=== PATIENT | male | born 1965 | race Caucasian/White ===

== ENCOUNTER 2017-07-28 00:45 | Inpatient (IN) | payer MEDICARE ==
[2017-07-28 01:14] LABS: #Lymphocytes 0.8 thou/uL (1.20-3.40); #Monocytes 0.3 thou/uL (0.11-0.59); %Basophils 0.1 % (0.0-1.0); %Eosinophils 0.5 % (0.0-10.0); %Lymphocytes 8.9 % (21.0-51.0); %Monocytes 3.4 % (0.0-10.0); %Neutrophils 87.1 % (42.0-75.0); Hemoglobin 12.3 g/dL (14.0-18.0); Mean Corpuscular HGB CONC 32.8 g/dL (32.0-36.0); Mean Corpuscular Hemoglobin 30.4 pg (27.0-31.0); Mean Corpuscular Volume 92.6 fl (80.0-94.0); Mean Platelet Volume 7.1 fL (7.4-10.4); Platelet Count 274 thou/uL (130-400); RBC Distribution Width 15.5 % (11.5-14.5); Red Blood Cell (RBC) Count 4.05 mill/uL (4.70-6.10); White Blood Cell (WBC) Count 9.2 thou/uL (4.8-10.8)
[2017-07-28] MEDS ORDERED: methylPREDNISolone Sod Succ/PF 125 MG/2 ML VIAL ONE (01:14)
[2017-07-28] MEDS ORDERED: Acetaminophen 500 MG TAB ONE (01:14)
[2017-07-28] MEDS ORDERED: cefTRIAXone\\ROCEPHIN 2 GM in Sodium Chloride 0.9% 100 ML IVPB SCH (01:15)
[2017-07-28 01:36] LABS: ALT (SGPT) 40 U/L (8-55); AST (SGOT) 34 U/L (5-34); Albumin 3.5 g/dL (3.5-5.0); Alkaline Phosphatase 82 U/L (40-150); Anion Gap 14 mmol/L (10-20); BUN (Urea Nitrogen) 8 mg/dL (8.4-25.7); Bilirubin, Total Less than 0.2 mg/dL (0.2-1.2); CK (CPK) 107 U/L (30-200); Calc. Creatinine Clearance 0 mL/min (70-130); Calcium 9.1 mg/dL (7.8-10.44); Carbon Dioxide 32 mmol/L (22-29); Chloride 96 mmol/L (98-107); Estimated GFR-MDRD Greater than 90; Globulin 3.3 g/dL (2.4-3.5); Glucose 160 mg/dL (70-105); Protein, Total 6.8 g/dL (6.0-8.3); Sodium 139 mmol/L (136-145)
[2017-07-28 01:39] LABS: Troponin I 0.038 ng/mL (< 0.028)
[2017-07-28] MEDS ORDERED: Azithromycin 500 MG VIAL ONE (02:39)
[2017-07-28 04:49] LABS: Troponin I 0.031 ng/mL (< 0.028)
[2017-07-28 05:13] LABS: Lactic Acid 3.9 mmol/L (0.5-2.2)
[2017-07-28] MEDS ORDERED: Albuterol Sulfate 2.5 mg/3 ml Neb NEB PRN (05:40)
--- NOTE | 2017-07-28 07:49 | RAD ---
PORTABLE CHEST: HISTORY: Cough. COMPARISON: 08/06/16. FINDINGS: Cardiomegaly. Mild vascular engorgement. Elevated right hemidiaphragm. These findings are all stab le. There is bibasilar atelectasis which also appears stable. IMPRESSION: Chest findings appear stable with no acute interval change noted on portable exam. POS: [facility]
[2017-07-28 07:55] LABS: Troponin I 0.035 ng/mL (< 0.028)
[2017-07-28] MEDS ORDERED: Ondansetron HCl/PF 4 MG/2 ML Vial SLOW IVP PRN (11:19)
[2017-07-28] MEDS ORDERED: SUMAtriptan Succinate 50 MG TAB PO SCH (11:30)
--- NOTE | 2017-07-28 13:03 | RAD ---
AP VIEW OF THE CHEST: INDICATION: Order; IMCUMU examination. Cough. COMPARISON: Prior study dated 07/28/17. FINDINGS: Persistent elevation of the right hemidiaphragm and cardiomegaly. The right basilar opacity, likely r eflecting subsegmental atelectasis, is similar. No pneumothorax is evident. IMPRESSION: Stable. POS: [facility]
[2017-07-28] MEDS: Potassium Chloride 20 MEQ TAB PO SCH ×2 (14:12→20:31)
[2017-07-28] MEDS: Acetaminophen 325 MG TAB PO PRN ×2 (14:12→23:34)
[2017-07-28] MEDS: Baclofen 10 MG TAB PO SCH ×2 (14:12→20:34)
[2017-07-28] MEDS: Enalaprilat Dihydrate 1.25 MG/ML VIAL SLOW IVP PRN ×2 (15:36→23:35)
[2017-07-28] MEDS: Mometasone/Formoterol 120 PUFF INHALER INH SCH (18:33)
[2017-07-28] MEDS: Lisinopril 20 MG TAB PO SCH (20:29)
[2017-07-28] MEDS: guaiFENesin ER 600 MG TAB PO SCH (20:30)
[2017-07-28] MEDS: Folic Acid 1 MG TAB PO SCH (20:31)
[2017-07-28] MEDS: Simvastatin 40 MG TAB PO SCH (20:31)
[2017-07-28] MEDS: Tamsulosin HCl 0.4 MG CAP PO SCH (20:32)
[2017-07-28] MEDS: Pregabalin 75 MG CAP PO SCH (20:33)
[2017-07-28] MEDS: predniSONE 5 MG TAB PO SCH (20:34)
[2017-07-28] MEDS: Nortriptyline HCl 25 MG CAP PO SCH (20:35)
[2017-07-28] MEDS: Fludrocortisone Acetate 0.1 MG TAB PO SCH (20:35)
[2017-07-28] MEDS: Hydroxychloroquine Sulfate 200 MG TAB PO SCH (20:36)
[2017-07-29] MEDS: cefTRIAXone\\ROCEPHIN 1 GM, Syringe 0.4 ML in Sterile Water 9.6 ML SLOW IVP SCH (00:25)
[2017-07-29] MEDS: HYDROcodone/Acetaminophen 5/325 mg Tablet PO PRN (01:16)
[2017-07-29] MEDS: Azithromycin 500 MG in Sodium Chloride 0.9% 250 ML 250 ML IVPB SCH (02:34)
[2017-07-29] MEDS: Acetaminophen 325 MG TAB PO PRN ×2 (03:43→08:18)
--- NOTE | 2017-07-29 06:06 | HP ---
DATE OF ADMISSION: 07/28/2017 CHIEF COMPLAINT: Left lower lobe pneumonia. HISTORY OF PRESENT ILLNESS: Patient is a 51-year-old white male with 2 days prior to coming to the ospital, began to have significant cough and shortness of breath. This progressed until the day of a dmission when he began to run fever when his temperature reached 102, his brought him to the [facility] room for further evaluation. It was noteworthy has not had any nausea, vomiting, or diarrhea. The cough is productive of green sputum. There is headache and general weakness and lack of appeti te. He has also had chest tightness with wheezing. He has not gotten relief from anything including the Tylenol, because his temperatures were maintained between 102 to 102.9. There has been no blood when he would cough. His breathing rate has increased. In the emergency room, it was noted that he had rales in his left lower lobe. There was mild respiratory distress noted. Chest x-ray showed mi ld left pleural effusion mainly on the left. There was some infiltrate noted, at which time, Dr. Harman alas was contacted about admitting him for the possible diagnosis of pneumonia. In the emergency room, blood cultures were taken and he was started on azithromycin as well as Rocephin. Dr. Solis agreed to the admission, continuing the initiation of his treatment. PAST MEDICAL HISTORY: Significant for coronary artery disease; diabetes, mild, noninsulin-dependent; glaucoma; prior history of DVT; hypertension; hyperlipidemia; Niobrara's disease; and asthma; insomni a; muscle spasms. Dyslipidemia, anemia, and peripheral neuropathy as well as a history of dry eyes a nd migraine headaches as well as GERD, BPH. PAST SURGICAL HISTORY: Includes right BKA amputation of three toes also on the left foot and periphe ral vascular disease is one of his additional medical diagnosis. PSYCHIATRIC HISTORY: Includes depression with some anxiety. SOCIAL HISTORY: Denies alcohol use, never smoked and does not use illicit drugs. He is . ALLERGIES: SULFA and CELEBREX. MEDICATIONS ON ADMISSION: Include Breo Ellipta to 100/25 one inhalation per day, hydrochlorothiazide 25 mg daily, hydroxychloroquine 200 mg b.i.d., [place] 10 q.6 hours p.r.n. pain, simvastatin 40 mg onc e a day at bedtime, sertraline 200 mg daily, nortriptyline 25 mg at bedtime for insomnia. He also ta kes additional medicine, baclofen 10 mg t.i.d. His other medications include Lyrica 300 mg daily, fo lic acid 0.4 mg daily, Ziac 5/6.25 daily, venlafaxine 300 mg daily, tramadol 50 mg q.6 hours p.r.n. p ain, lisinopril 10 mg daily, prednisone 10 mg daily, Florinef 0.1 mg daily, omeprazole 40 mg daily, r izatriptan 10 mg p.r.n. migraine headache, and Restasis ophthalmic drops 1 drop OU daily. REVIEW OF SYSTEMS: Includes, HEENT: Headache, which he currently has not associated with nausea, vo miting, or blurred vision. Chest is significant for tightness, occasional wheezing, and fall. Heart : Denies palpitations or chest pain at this time. Abdomen: Denies nausea, vomiting, or diarrhea. Skin: No acute rashes or lesions. : Denies dysuria or blood in urine. Musculoskeletal: Has chr onic pain in his limbs with phantom pain. Endocrine: Denies any swelling or edema at this time. PHYSICAL EXAMINATION: VITAL SIGNS: At time of admission, blood pressure is 195/115, pulse 138, respirations 38, O2 sat 80% on room air initially. After neb treatments and further observation of IV fluids, his blood pressur e dropped to 127/82, pulse 113, respirations 23 with O2 sat at 97%. GENERAL: This is an obese middle-aged male, alert, oriented, and cooperative. HEENT: Normocephalic and atraumatic. Pupils equal, round, and reactive to light. TMs, nares, phary nx are clear. NECK: Supple, trachea midline, no mass, no bruits. CHEST: With diminished breath sounds especially in the left lower lobe, faint wheezing noted. ABDOMEN: Obese, unable to appreciate organomegaly. GENITOURINARY: Deferred. EXTREMITIES: With right BKA amputation. Other extremities are without clubbing, cyanosis, or edema. Normal range of motion and return of circulation in less than 3 seconds. The skin was without acut e rashes or lesions. NEUROLOGIC: Cranial nerves are intact. Gait and cerebellar function are untested at this time. Sen rhoda exam is grossly intact. SKIN: Without acute rashes or lesions. Sensory is normal. Mental status is at baseline, but depres chaz in remission. Clear mentation. IMAGING: Chest x-ray showing left lower lobe infiltrate and the other lab work pending at the time o f admission. ASSESSMENT: Left lower lobe pneumonia, hypertension, dehydration, febrile illness. PLAN: Hospitalization continuing IV Rocephin and IV Zithromax. We will do DuoNeb treatments q.4 p.r .n., oxygen therapy, and serial reevaluation.
[2017-07-29 06:30] LABS: #Eosinphils 0.1 thou/uL (0.0-0.7); #Lymphocytes 1.3 thou/uL (1.20-3.40); #Monocytes 0.3 thou/uL (0.11-0.59); #Neutrophils 8.8 thou/uL (1.40-6.50); %Basophils 0.1 % (0.0-1.0); %Eosinophils 0.6 % (0.0-10.0); %Lymphocytes 12.7 % (21.0-51.0); %Monocytes 2.4 % (0.0-10.0); %Neutrophils 84.3 % (42.0-75.0); Hemoglobin 11.4 g/dL (14.0-18.0); Mean Corpuscular Hemoglobin 29.6 pg (27.0-31.0); Mean Corpuscular Volume 92.3 fl (80.0-94.0); Platelet Count 243 thou/uL (130-400); RBC Distribution Width 15.6 % (11.5-14.5); Red Blood Cell (RBC) Count 3.86 mill/uL (4.70-6.10); White Blood Cell (WBC) Count 10.5 thou/uL (4.8-10.8)
[2017-07-29 06:54] LABS: Anion Gap 14 mmol/L (10-20); BUN (Urea Nitrogen) 7 mg/dL (8.4-25.7); Calc. Creatinine Clearance 250 mL/min (70-130); Calcium 8.2 mg/dL (7.8-10.44); Carbon Dioxide 31 mmol/L (22-29); Cardiac Risk 2.4 (Less than 4.5); Chloride 96 mmol/L (98-107); Cholesterol 112 mg/dl (< 200 Desired); Estimated GFR-MDRD Greater than 90; Glucose 128 mg/dL (70-105); HDL Cholesterol 46 mg/dL (>60 Neg Risk); LDL Cholesterol, Calculated 44 mg/dL; Potassium 3.1 mmol/L (3.5-5.1); Sodium 138 mmol/L (136-145); Triglycerides 109 mg/dL (Less than 150)
[2017-07-29] MEDS: Mometasone/Formoterol 120 PUFF INHALER INH SCH ×2 (07:06→19:10)
[2017-07-29] MEDS: metFORMIN 500 MG TAB PO SCH ×2 (08:18→17:15)
[2017-07-29] MEDS: Ibuprofen 600 MG TAB PO SCH ×3 (08:53→20:55)
[2017-07-29] MEDS: Hydroxychloroquine Sulfate 200 MG TAB PO SCH ×2 (08:54→20:05)
[2017-07-29] MEDS: Potassium Chloride 20 MEQ TAB PO SCH ×3 (08:54→20:05)
[2017-07-29] MEDS: Venlafaxine HCl XR 150 MG CAP PO SCH (08:54)
[2017-07-29] MEDS: guaiFENesin ER 600 MG TAB PO SCH ×2 (08:54→20:56)
[2017-07-29] MEDS: Lisinopril 20 MG TAB PO SCH ×2 (08:55→20:04)
[2017-07-29] MEDS: predniSONE 5 MG TAB PO SCH (08:56)
[2017-07-29] MEDS: Hydrochlorothiazide 25 MG TAB PO SCH (08:56)
[2017-07-29] MEDS: Baclofen 10 MG TAB PO SCH ×3 (08:57→20:05)
[2017-07-29] MEDS: Folic Acid 1 MG TAB PO SCH ×2 (08:58→20:06)
[2017-07-29] MEDS ORDERED: Fludrocortisone Acetate 0.1 MG TAB PO SCH (09:00)
[2017-07-29] MEDS ORDERED: Pregabalin 75 MG CAP PO SCH (09:00)
[2017-07-29] MEDS ORDERED: FLU VACC QS2017-18 36 mo. & older 0.5 ML SYRINGE IM ONE (09:00)
[2017-07-29] MEDS: Bisoprolol Fumarate/HCTZ 5 mg/6.25 mg Tablet PO SCH (09:56)
[2017-07-29] MEDS: SUMAtriptan Succinate 50 MG TAB PO PRN (09:56)
[2017-07-29] MEDS: Dextrose 5% w/ 20 mEq KCl 1,000 ML IV SCH ×2 (09:57→20:57)
[2017-07-29] MEDS: cycloSPORINE 0.05% Ophthalmic Droperette EA EYE SCH (09:58)
[2017-07-29] MEDS ORDERED: Acetaminophen 325 MG TAB PO SCH (12:00)
[2017-07-29] MEDS: Acetaminophen 325 MG TAB PO SCH ×3 (14:19→23:02)
[2017-07-29] MEDS ORDERED: Magnesium Sulfate 3 GM in Sodium Chloride 0.9% 100 ML IVPB SCH (15:30)
--- NOTE | 2017-07-29 16:01 | PRG ---
DATE OF SERVICE: 07/29/2017 SUBJECTIVE: Mr. Mckinnon is a 51-year-old male. He has been seen by Dr. Melo in the office. He has a history of cough and shortness of breath for several days prior to admission as well as feve r. He was admitted and started on nebulized treatments. I was consulted because of respiratory distress . PAST MEDICAL HISTORY: 1. Remarkable for coronary artery disease. 2. Diabetes. 3. Glaucoma. 4. Deep venous thrombosis in the past. 5. History of hypertension. 6. Lipid disorder. 7. Asthma. 8. History of muscle spasm. 9. Peripheral neuropathy. 10. History reflux disease. 11. History of benign prostatic hypertrophy. 12. History of a BKA. 13. History of PFTs showing a restrictive defect most likely secondary to his body habitus. No obst ructive defect was seen on past PFTs. ALLERGIES: He reports BACTRIM, CELEBREX, and IODINE intolerance. SOCIAL HISTORY: He quit smoking about 3 years ago. Drinks rarely. FAMILY HISTORY: Positive for diabetes and vascular disease. MEDICATIONS: Have been reviewed. REVIEW OF SYSTEMS: Otherwise negative 10-point. PHYSICAL EXAMINATION: GENERAL: He is afebrile. Heart rate 103, respiratory rate 24, oximetry is 93% on 4 liters, and bloo d pressure 135/80. HEENT: Pupils are equal. Sclerae is anicteric. NECK: Supple. LUNGS: Lying on his left side, he has diffuse wheezes. CARDIOVASCULAR: Regular rhythm. S1 and S2 are distant. ABDOMEN: Soft and nontender. EXTREMITIES: Left lower extremity is remarkable for stasis changes. LABORATORY DATA: White count 10.5, hemoglobin 11.4, platelets 243. Sodium 138, potassium 3.1, chlor christina 96, bicarbonate 31, BUN 7, and creatinine 0.7. IMPRESSION: Asthma exacerbation with bronchitis. He needs IV steroids, his glucose will have to be monitored. He needs more frequent nebulizer treatments, one dose of IV magnesium may be helpful. He would probably benefit from different CPAP settings. He has a normal sleep study that showed 7 cm o f water pressure eliminated his events. BiPAP at 12/7 may be more beneficial.
[2017-07-29] MEDS: Enoxaparin Sodium 40 MG/0.4 ML SYRINGE SC SCH (20:04)
[2017-07-29] MEDS: Fludrocortisone Acetate 0.1 MG TAB PO SCH (20:05)
[2017-07-29] MEDS: Nortriptyline HCl 25 MG CAP PO SCH (20:05)
[2017-07-29] MEDS: Tamsulosin HCl 0.4 MG CAP PO SCH (20:05)
[2017-07-29] MEDS: Simvastatin 40 MG TAB PO SCH (20:06)
[2017-07-29] MEDS: Pregabalin 75 MG CAP PO SCH (20:55)
[2017-07-30] MEDS: cefTRIAXone\\ROCEPHIN 1 GM, Syringe 0.4 ML in Sterile Water 9.6 ML SLOW IVP SCH ×3
[2017-07-30] MEDS: Azithromycin 500 MG in Sodium Chloride 0.9% 250 ML 250 ML IVPB SCH (02:03)
[2017-07-30] MEDS: Acetaminophen 325 MG TAB PO SCH ×3 (02:05→11:27)
[2017-07-30] MEDS: Ibuprofen 600 MG TAB PO SCH ×2 (02:06→09:36)
[2017-07-30 05:49] LABS: Anion Gap 13 mmol/L (10-20); BUN (Urea Nitrogen) 9 mg/dL (8.4-25.7); Calc. Creatinine Clearance 272 mL/min (70-130); Calcium 8.4 mg/dL (7.8-10.44); Carbon Dioxide 28 mmol/L (22-29); Chloride 99 mmol/L (98-107); Estimated GFR-MDRD Greater than 90; Glucose 211 mg/dL (70-105); Potassium 4.5 mmol/L (3.5-5.1); Sodium 135 mmol/L (136-145)
[2017-07-30] MEDS: Dextrose 5% w/ 20 mEq KCl 1,000 ML IV SCH (05:53)
[2017-07-30 06:23] LABS: Band 4 % (5-11); Hemoglobin 11.2 g/dL (14.0-18.0); Lymphocytes 5 % (21-51); MDiff Complete? YES; Mean Corpuscular HGB CONC 31.7 g/dL (32.0-36.0); Mean Corpuscular Hemoglobin 29.3 pg (27.0-31.0); Mean Corpuscular Volume 92.4 fl (80.0-94.0); Mean Platelet Volume 7.2 fL (7.4-10.4); Metamyelocyte 1 % (0-0); Monocytes 3 % (0-10); Neutrophil 87 % (42-75); PLT Morphology Comment Appears Adequate; Platelet Count 228 thou/uL (130-400); RBC Distribution Width 15.3 % (11.5-14.5); Red Blood Cell (RBC) Count 3.82 mill/uL (4.70-6.10)
[2017-07-30] MEDS: Mometasone/Formoterol 120 PUFF INHALER INH SCH ×2 (06:23→19:29)
--- NOTE | 2017-07-30 08:07 | PRG ---
DATE OF SERVICE: 07/30/2017 The patient is on CPAP machine. He would not arouse when I tried to wake him, nor his family in the room. He still has IV fluids going. PHYSICAL EXAMINATION: VITAL SIGNS: His blood pressure is 130/80, pulse 80, respirations 16. He is afebrile. NECK: Supple. JVP could not be assessed due to obese neck. Carotid had good upstroke with no thyro megaly. COR: Regular rate and rhythm. CHEST: A few rales bibasilar. ABDOMEN: Soft, obese, nontender with normoactive bowel sounds. No bruit or organomegaly. EXTREMITIES: Trace edema. He had palpable pedal pulses. SKIN: There is no evidence of ulcers, lesion or rash. NEUROLOGIC: He is resting comfortably. LABORATORY DATA: His H&H is 11.2 and 35.3, platelet count 228, white blood cells 8, glucose 211. ASSESSMENT: 1. Left lower lobe pneumonia. 2. Hypokalemia, improved. 3. Hypertension. 4. Sleep apnea. 5. Multiple medical problems. PLAN: 1. The patient will have a follow up chest x-ray tomorrow. 2. We will also back off IV fluids a little bit and follow up with lab in the morning.
[2017-07-30] MEDS ORDERED: ALPHAGAN 0.1% FS SCH (09:00)
[2017-07-30] MEDS: cycloSPORINE 0.05% Ophthalmic Droperette EA EYE SCH (09:03)
--- NOTE | 2017-07-30 09:09 | PQF ---
CLINICAL DOCUMENTATION IMPROVEMENT CLARIFICATION FORM: ICD-10 Updated PLEASE DO AN ADDENDUM TO THE PROGRESS NOTE WITH ANY DOCUMENTATION UPDATES OR ADDITIONS AND CARRY THROUGH TO DC SUMMARY. THANK YOU. DATE: 07/30 ATTN: DR. MANI CARLISLE Please exercise your independent, professional judgment in responding to the clarification form. Clinical indicators are provided on the bottom of this form for your review Please check appropriate box(s): [ ] Pneumonia secondary to (specify organism / underlying disease) [ x] Simple Pneumonia (community acquired - nosocomial) [ ] Bronchopneumonia [ ] Pneumonia of unknown etiology [ x ] Other diagnosis asthmatic bronchitis [ ] Unable to determine For continuity of documentation, please document condition throughout progress notes and discharge summary. Thank You. CLINICAL INDICATORS - SIGNS / SYMPTOMS / LABS ER PHYSICIAN DIAGNOSIS DOCUMENTATION 07/28: PNEUMONIA PHYSICIAN H&P DOCUMENTATION 07/28: IMAGING: CXR SHOWING LLL INFILTRATE; ASSESSMENT: LLL PNEUMONIA PHYSICIAN & OVERWEAVER PN 07/29 & 19: LLL PNEUMONIA PULMONARY PN 07/29: IMPRESSION: ASTHMA EXACERBATION W/BRONCHITIS RISK FACTORS: OBESITY (BMI 44.5) HX OF ASTHMA FEVER (103) RESPIRATORY DISTRESS TREATMENTS: IV ANTIBIOTICS (ROCEPHIN & AZITHROMAX 07/28 - PRESENT) IVF (D5 W/20 KCL 07/29 - PRESENT) PULMONARY CONSULT SUPPLEMENTAL 02 VIA BIPAP THANK YOU! Vanessa (This form is maintained as a part of the permanent medical record) 2014 [employer]. All Rights Reserved Vanessa Rabago RN, BSN [email or web address] Office: [phone] [facility]
--- NOTE | 2017-07-30 09:27 | PQF ---
CLINICAL DOCUMENTATION IMPROVEMENT CLARIFICATION FORM: ICD-10 Updated PLEASE DO AN ADDENDUM TO THE PROGRESS NOTE WITH ANY DOCUMENTATION UPDATES OR ADDITIONS AND CARRY THROUGH TO DC SUMMARY. THANK YOU. DATE: 07/30 ATTN: DR. MANI CARLISLE Please exercise your independent, professional judgment in responding to the clarification form. Clinical indicators are provided on the bottom of this form for your review Please check appropriate box(s): [ ] Acute Respiratory Failure: [ ] with Hypoxia [ ] with Hypercapnia [ ] Acute on Chronic Respiratory Failure: [ ] with Hypoxia [ ] with Hypercapnia [ ] Acute Respiratory Failure due to: (etiology) [ ] Chronic Respiratory Failure only: [ ] with Hypoxia [ ] with Hypercapnia [ x ] Other diagnosis ___acute respiratory distress -exacerbation of asthma ___ [ ] Unable to determine For continuity of documentation, please document condition throughout progress notes and discharge summary. Thank You. CLINICAL INDICATORS - SIGNS / SYMPTOMS / LABS ER PRESENTATION 07/28: RA SAT ON ARRIVAL 77%, 4L 02: 96% RR: 38 PT WITH LABORED RESPIRATIONS, TRIPOD POSITIONING, TACHYPNEIC, RESPIRATORY DISTRESS PHYSICIAN H&P DOCUMENTATION 07/28: ...2 DAYS PRIOR TO COMING TO THE HOSPITAL, BEGAN TO HAVE SIGNIFICANT COUGH & SOB. ...IN THE ER IT WAS NOTED HE HAD RALES IN HIS LLL. THERE WAS MILD RESPIRATORY DISTRESS NOTED RISK FACTORS: LLL PNEUMONIA HX ASTHMA TREATMENTS: SUPPLEMENTAL OXYGEN (VIA BIPAP) PULMONARY CONSULT RESPIRATORY TREATMENTS (CHEST PERCUSSION & POSTURAL DRAINAGE TO LLL BID) CONTINUOUS MONITORING OF 02 STATUS THANK YOU! Vanessa (This form is maintained as a part of the permanent medical record) 2014 [employer]. All Rights Reserved Vanessa Rabago RN, BSN [email or web address] Office: [phone] [facility]
[2017-07-30] MEDS: Hydrochlorothiazide 25 MG TAB PO SCH (09:34)
[2017-07-30] MEDS: guaiFENesin ER 600 MG TAB PO SCH ×2 (09:34→20:15)
[2017-07-30] MEDS: Venlafaxine HCl XR 150 MG CAP PO SCH (09:34)
[2017-07-30] MEDS: metFORMIN 500 MG TAB PO SCH ×2 (09:34→18:02)
[2017-07-30] MEDS: Hydroxychloroquine Sulfate 200 MG TAB PO SCH ×2 (09:36→20:16)
[2017-07-30] MEDS: Folic Acid 1 MG TAB PO SCH ×2 (09:36→20:15)
[2017-07-30] MEDS: Potassium Chloride 20 MEQ TAB PO SCH ×3 (09:36→20:17)
[2017-07-30] MEDS: Baclofen 10 MG TAB PO SCH ×3 (09:36→20:11)
[2017-07-30] MEDS: Lisinopril 20 MG TAB PO SCH ×2 (09:36→20:16)
[2017-07-30] MEDS: Bisoprolol Fumarate/HCTZ 5 mg/6.25 mg Tablet PO SCH (09:38)
--- NOTE | 2017-07-30 09:39 | PQF ---
CLINICAL DOCUMENTATION IMPROVEMENT CLARIFICATION FORM: ICD-10 Updated PLEASE DO AN ADDENDUM TO THE PROGRESS NOTE WITH ANY DOCUMENTATION UPDATES OR ADDITIONS AND CARRY THROUGH TO DC SUMMARY. THANK YOU. DATE: 07/30 ATTN: DR. MANI CARLISLE Please exercise your independent, professional judgment in responding to the clarification form. Clinical indicators are provided on the bottom of this form for your review Please check appropriate box(s): [ x ] Sepsis due to: (Pna, UTI, gangrenous gall bladder, etc.) _pneumonia [ ] Severe sepsis with acute organ dysfunction of: (Examples: respiratory failure, encephalopathy, acute kidney failure, other) [ ] Localized infection without sepsis [ ] Other diagnosis [ ] Unable to determine For continuity of documentation, please document condition throughout progress notes and discharge summary. Thank You. CLINICAL INDICATORS - SIGNS / SYMPTOMS / LABS ER PRESENTATION 07/28: T: 102.5 HR: 113-127 RR: 23-38 LACTIC ACID: 5.3 RA SAT: 77%, 4L 02: 96% W/RESPIRATORY DISTRESS & TRIPOD POSITIONING ER PHYSICIAN DIAGNOSES DOCUMENTATION 07/28: FINAL: SEVERE SEPSIS, ADD'L: LACTIC ACIDOSIS, PNEUMONIA RISK FACTORS: LLL PNEUMONIA LACTIC ACIDOSIS (3.9 - 5.3, 07/28) FEVER (MAX: 103) TREATMENTS: IV ANTIBIOTICS (ROCEPHIN & AZITHROMYCIN 07/28 - PRESENT) IVF (D5 W/20 KCL X3 L, 07/29 - PRESENT) SERIAL CBC (07/28 - PRESENT) THANK YOU! Vanessa (This form is maintained as a part of the permanent medical record) 2014 [employer]. All Rights Reserved Vanessa Rabago RN, BSN [email or web address] Office: [phone] [facility]
--- NOTE | 2017-07-30 10:00 | PRG ---
DATE OF SERVICE: 07/30/2017 This morning he is awake, alert, responsive. He is better, he has less cough, less shortness of esther th, less wheezing. PHYSICAL EXAMINATION: VITAL SIGNS: Blood pressure 139/86, sats 87 on supplemental oxygen, respirations 32, temperature 98. CHEST: Chest reveals no wheezing. CARDIAC: Normal S1, S2. No gallops. ABDOMEN: Abdomen is soft. LABORATORY DATA: White count 8000, H&H 11 and 36. Platelet count 238. Electrolytes are normal. IMPRESSION: 1. Bronchitis, asthmatic. 2. Morbid obesity with sleep apnea. 3. Unknown rheumatological problem. LABORATORY: His chest x-ray shows questionable left-sided infiltrate. Elevated hemidiaphragm with s ome bibasilar atelectatic changes. PLAN: I am going to switch him to oral antibiotics and oral prednisone tomorrow. Continue BiPAP as ordered. I will follow while in the hospital. Early ambulation.
[2017-07-30] MEDS: Brimonidine Tartrate 0.2% Ophth Soln 5 ml Bottle EA EYE SCH (20:11)
[2017-07-30] MEDS: Enoxaparin Sodium 40 MG/0.4 ML SYRINGE SC SCH (20:13)
[2017-07-30] MEDS: Fludrocortisone Acetate 0.1 MG TAB PO SCH (20:14)
[2017-07-30] MEDS: Nortriptyline HCl 25 MG CAP PO SCH (20:16)
[2017-07-30] MEDS: Pregabalin 75 MG CAP PO SCH (20:17)
[2017-07-30] MEDS: Tamsulosin HCl 0.4 MG CAP PO SCH (20:19)
[2017-07-30] MEDS: Simvastatin 40 MG TAB PO SCH (20:19)
[2017-07-30] MEDS: SUMAtriptan Succinate 50 MG TAB PO PRN (20:46)
[2017-07-30] MEDS: Enalaprilat Dihydrate 1.25 MG/ML VIAL SLOW IVP PRN (20:46)
[2017-07-31] MEDS ORDERED: Sterile Water 10 ML ONE (00:12)
[2017-07-31] MEDS: cefTRIAXone\\ROCEPHIN 1 GM, Syringe 0.4 ML in Sterile Water 9.6 ML SLOW IVP SCH (00:59)
[2017-07-31] MEDS: Azithromycin 500 MG in Sodium Chloride 0.9% 250 ML 250 ML IVPB SCH (02:58)
[2017-07-31 05:55] LABS: #Lymphocytes 0.6 thou/uL (1.20-3.40); #Monocytes 0.4 thou/uL (0.11-0.59); %Basophils 0.1 % (0.0-1.0); %Eosinophils 0.3 % (0.0-10.0); %Monocytes 3.8 % (0.0-10.0); %Neutrophils 90.8 % (42.0-75.0); Mean Corpuscular HGB CONC 31.8 g/dL (32.0-36.0); Mean Corpuscular Hemoglobin 29.3 pg (27.0-31.0); Mean Corpuscular Volume 92.1 fl (80.0-94.0); Mean Platelet Volume 7.8 fL (7.4-10.4); Platelet Count 309 thou/uL (130-400); RBC Distribution Width 15.3 % (11.5-14.5); Red Blood Cell (RBC) Count 3.76 mill/uL (4.70-6.10)
[2017-07-31] MEDS: Mometasone/Formoterol 120 PUFF INHALER INH SCH ×2 (06:04→19:02)
[2017-07-31 06:30] LABS: ALT (SGPT) 25 U/L (8-55); AST (SGOT) 30 U/L (5-34); Alkaline Phosphatase 63 U/L (40-150); Anion Gap 12 mmol/L (10-20); BUN (Urea Nitrogen) 11 mg/dL (8.4-25.7); Bilirubin, Total 0.2 mg/dL (0.2-1.2); Calc. Creatinine Clearance 281 mL/min (70-130); Calcium 8.9 mg/dL (7.8-10.44); Carbon Dioxide 30 mmol/L (22-29); Chloride 100 mmol/L (98-107); Estimated GFR-MDRD Greater than 90; Globulin 3.1 g/dL (2.4-3.5); Glucose 175 mg/dL (70-105); Potassium 4.4 mmol/L (3.5-5.1); Protein, Total 6.1 g/dL (6.0-8.3); Sodium 138 mmol/L (136-145)
--- NOTE | 2017-07-31 08:19 | RAD ---
CHEST ONE VIEW: History: Shortness of breath. Comparison: 07-28-17 FINDINGS: Lungs are hypoinflated. Perihilar opacities are present. Small effusions. No pneumothorax. IMPRESSION: 1. Perihilar opacities consistent with edema. 2. Small effusions. 3. Cardiomegaly. 4. Severe hypo inflation, follow up two views of the chest recommended. POS: [facility]
--- NOTE | 2017-07-31 08:51 | PRG ---
DATE OF SERVICE: 07/31/2017 The patient does not feeling any better. He is on CPAP. He had a good night; however, resting. PHYSICAL EXAMINATION: VITAL SIGNS: Upon evaluation his blood pressure was 135/70, pulse 100, respirations 24. He is afebr ile. NECK: Supple. JVD cannot be assessed due to obese neck. Carotid had good upstroke with no thyromeg delmar. COR: Regular rate and rhythm. CHEST: Symmetrical. Clear to auscultation and percussion upper lobes. ABDOMEN: Soft, obese, nontender with normoactive bowel sounds. No bruit or organomegaly. EXTREMITIES: No edema or cyanosis. He had palpable pedal pulses. SKIN: There is no evidence of ulcers, lesion, or rash. NEUROLOGIC: He is awake, alert, and oriented to person, place, and time. LABORATORY DATA: His H&H is 11.0 and 34.7. His platelets 309, his white blood cell is 11. Blood paris gars 170. ASSESSMENT: 1. Asthmatic bronchitis. 2. Morbid obesity. 3. Sleep apnea. 4. Hypertension. PLAN: I appreciate all of Dr. Melo's help. He is going to be switching his medications to oral anti biotics and oral prednisone today. I will order a TrapEase for the patient in bed as the patient levi s feel like he can move around better if he has this to help him. Will also follow up with a CBC and CMP in the morning as well.
--- NOTE | 2017-07-31 09:35 | PRG ---
DATE OF SERVICE: 07/31/2017 He is still very short of breath, unable to do any form of activity without getting dyspneic. He is still on BiPAP pretty much 24 hours. PHYSICAL EXAMINATION: VITAL SIGNS: His sats are 94, temperature 98, respirations 18, pulse 100, blood pressure 135/77. CHEST: Chest reveals occasional rhonchi, minimal wheezing. CARDIAC: Normal S1, S2. ABDOMEN: Soft, no masses. I's and O's are even. His chest x-ray shows a questionable left-sided infiltrate, slightly more pron ounced. IMPRESSION: 1. Acute on chronic respiratory failure. 2. Morbid obesity. 3. Right [id number] amputation. 4. Elevated hemidiaphragm. PLAN: I have added Levaquin to his present antibiotic regime. He is not coughing anything. We will continue steroids, neb treatment. BNP is ordered. We will follow.
[2017-07-31] MEDS: Potassium Chloride 20 MEQ TAB PO SCH ×4 (09:45→20:44)
[2017-07-31] MEDS: guaiFENesin ER 600 MG TAB PO SCH ×2 (09:45→20:27)
[2017-07-31] MEDS: Lisinopril 20 MG TAB PO SCH ×2 (09:46→20:27)
[2017-07-31] MEDS: Hydrochlorothiazide 25 MG TAB PO SCH (09:46)
[2017-07-31] MEDS: metFORMIN 500 MG TAB PO SCH ×2 (09:46→17:31)
[2017-07-31] MEDS: Folic Acid 1 MG TAB PO SCH ×2 (09:46→20:28)
[2017-07-31] MEDS: Venlafaxine HCl XR 150 MG CAP PO SCH (09:47)
[2017-07-31] MEDS: Baclofen 10 MG TAB PO SCH ×3 (09:47→21:19)
[2017-07-31] MEDS: Hydroxychloroquine Sulfate 200 MG TAB PO SCH ×2 (09:48→20:28)
[2017-07-31] MEDS: cycloSPORINE 0.05% Ophthalmic Droperette EA EYE SCH (09:48)
[2017-07-31] MEDS: Brimonidine Tartrate 0.2% Ophth Soln 5 ml Bottle EA EYE SCH ×2 (09:49→20:26)
[2017-07-31] MEDS: Bisoprolol Fumarate/HCTZ 5 mg/6.25 mg Tablet PO SCH (09:49)
[2017-07-31] MEDS: HYDROcodone/Acetaminophen 5/325 mg Tablet PO PRN (13:43)
[2017-07-31] MEDS ORDERED: Furosemide 40 MG/4 ML VIAL SLOW IVP SCH (14:30)
[2017-07-31] MEDS: ALPRAZolam 0.25 MG TAB PO PRN (16:19)
[2017-07-31] MEDS: Enoxaparin Sodium 40 MG/0.4 ML SYRINGE SC SCH (20:25)
[2017-07-31] MEDS: Pregabalin 75 MG CAP PO SCH (20:26)
[2017-07-31] MEDS: Nortriptyline HCl 25 MG CAP PO SCH (20:27)
[2017-07-31] MEDS: Simvastatin 40 MG TAB PO SCH (20:27)
[2017-07-31] MEDS: Fludrocortisone Acetate 0.1 MG TAB PO SCH (20:28)
[2017-07-31] MEDS: Tamsulosin HCl 0.4 MG CAP PO SCH (20:28)
[2017-07-31] MEDS: SUMAtriptan Succinate 50 MG TAB PO PRN (21:18)
[2017-08-01] MEDS: cefTRIAXone\\ROCEPHIN 1 GM, Syringe 0.4 ML in Sterile Water 9.6 ML SLOW IVP SCH (00:49)
[2017-08-01 04:53] LABS: #Basophils 0.1 thou/uL (0.0-0.2); #Lymphocytes 0.6 thou/uL (1.20-3.40); #Monocytes 0.5 thou/uL (0.11-0.59); #Neutrophils 8.1 thou/uL (1.40-6.50); %Basophils 0.7 % (0.0-1.0); %Eosinophils 0.4 % (0.0-10.0); %Lymphocytes 6.6 % (21.0-51.0); %Monocytes 5.8 % (0.0-10.0); %Neutrophils 86.5 % (42.0-75.0); Hemoglobin 11.7 g/dL (14.0-18.0); Mean Corpuscular HGB CONC 31.7 g/dL (32.0-36.0); Mean Corpuscular Hemoglobin 29.2 pg (27.0-31.0); Mean Corpuscular Volume 92.2 fl (80.0-94.0); Mean Platelet Volume 7.3 fL (7.4-10.4); Platelet Count 353 thou/uL (130-400); RBC Distribution Width 15.4 % (11.5-14.5); Red Blood Cell (RBC) Count 3.99 mill/uL (4.70-6.10); White Blood Cell (WBC) Count 9.3 thou/uL (4.8-10.8)
[2017-08-01 05:10] LABS: ALT (SGPT) 30 U/L (8-55); AST (SGOT) 31 U/L (5-34); Albumin 3.1 g/dL (3.5-5.0); Alkaline Phosphatase 64 U/L (40-150); Anion Gap 14 mmol/L (10-20); BUN (Urea Nitrogen) 15 mg/dL (8.4-25.7); Bilirubin, Total 0.2 mg/dL (0.2-1.2); Calc. Creatinine Clearance 246 mL/min (70-130); Calcium 9.5 mg/dL (7.8-10.44); Carbon Dioxide 34 mmol/L (22-29); Chloride 94 mmol/L (98-107); Estimated GFR-MDRD Greater than 90; Globulin 3.6 g/dL (2.4-3.5); Glucose 144 mg/dL (70-105); Potassium 3.6 mmol/L (3.5-5.1); Protein, Total 6.7 g/dL (6.0-8.3); Sodium 138 mmol/L (136-145)
[2017-08-01] MEDS ORDERED: methylPREDNISolone Sod Succ/PF 125 MG/2 ML VIAL IVP SCH (06:00)
[2017-08-01] MEDS: Mometasone/Formoterol 120 PUFF INHALER INH SCH ×2 (07:15→19:14)
--- NOTE | 2017-08-01 07:59 | RAD ---
AP VIEW CHEST: HISTORY: Respiratory distress. Patient on Bi-PAP. FINDINGS: AP view chest is obtained on 08/01/17. Comparison is made to previous exam from 07/31/17. AP view chest demonstrates cardiomegaly seen. Pulmonary vascular congestion is seen. Diffuse airspa ce opacity is seen in both lungs. No evidence of effusions or pneumonia seen. IMPRESSION: Pulmonary vascular congestion, cardiomegaly, and perihilar airspace opacities concerning for pulmonar y edema and congestive heart failure. POS: [facility]
[2017-08-01] MEDS ORDERED: Furosemide 40 MG TAB PO SCH (09:00)
[2017-08-01] MEDS: metFORMIN 500 MG TAB PO SCH ×2 (09:52→17:12)
[2017-08-01] MEDS: Venlafaxine HCl XR 150 MG CAP PO SCH (09:53)
[2017-08-01] MEDS: Hydrochlorothiazide 25 MG TAB PO SCH (09:53)
[2017-08-01] MEDS: Potassium Chloride 20 MEQ TAB PO SCH ×5 (09:53→20:40)
[2017-08-01] MEDS: Lisinopril 20 MG TAB PO SCH ×2 (09:53→20:35)
[2017-08-01] MEDS: guaiFENesin ER 600 MG TAB PO SCH ×2 (09:54→20:34)
[2017-08-01] MEDS: Brimonidine Tartrate 0.2% Ophth Soln 5 ml Bottle EA EYE SCH ×2 (09:55→20:33)
[2017-08-01] MEDS: Folic Acid 1 MG TAB PO SCH ×2 (09:55→20:34)
[2017-08-01] MEDS: Bisoprolol Fumarate/HCTZ 5 mg/6.25 mg Tablet PO SCH (10:10)
[2017-08-01] MEDS: Hydroxychloroquine Sulfate 200 MG TAB PO SCH ×2 (10:10→20:35)
[2017-08-01] MEDS: Baclofen 10 MG TAB PO SCH ×3 (10:11→20:33)
[2017-08-01] MEDS: cycloSPORINE 0.05% Ophthalmic Droperette EA EYE SCH (10:52)
--- NOTE | 2017-08-01 12:54 | PRG ---
DATE OF SERVICE: 08/01/2017 This morning off the BiPAP. I placed him. PHYSICAL EXAMINATION: VITAL SIGNS: His sats are 91-92, respiration 28, temperature 99.4, blood pressure 125/86. He is cou ghing up sputum that is relatively clear. His I's and O's have been 1490 in, 1475 out. CHEST: Chest revealed bilateral rhonchi, minimal wheezing, left greater than right. CARDIAC: Normal S1-S2. No gallops. ABDOMEN: Soft. No masses. LABORATORY: White count 9, hematocrit 11 and 36. Platelet count 252. Electrolytes are normal. X-ray shows once again left-sided infiltrate, though less pronounced. His BNP is normal. IMPRESSION: 1. Respiratory failure. 2. Sleep apnea. 3. Morbid obesity. 4. Major anxiety. PLAN: Continue aggressive neb treatments. Avoid diuretics. Continue Levaquin, steroids, neb treatments. I will follow. One-half hour critical care time.
[2017-08-01] MEDS: ALPRAZolam 0.25 MG TAB PO PRN (17:11)
[2017-08-01] MEDS ORDERED: SUMAtriptan Succinate 25 MG TAB PO PRN (17:21)
[2017-08-01] MEDS: Fluticasone Propionate Nasal Spray 16 gm Bottle NASAL SCH (18:01)
[2017-08-01] MEDS: Nortriptyline HCl 25 MG CAP PO SCH (20:33)
[2017-08-01] MEDS: Fludrocortisone Acetate 0.1 MG TAB PO SCH (20:34)
[2017-08-01] MEDS: Pregabalin 75 MG CAP PO SCH (20:35)
[2017-08-01] MEDS: Simvastatin 40 MG TAB PO SCH (20:36)
[2017-08-01] MEDS: Tamsulosin HCl 0.4 MG CAP PO SCH (20:36)
[2017-08-01] MEDS: Enoxaparin Sodium 40 MG/0.4 ML SYRINGE SC SCH (20:36)
[2017-08-02] MEDS: cefTRIAXone\\ROCEPHIN 1 GM, Syringe 0.4 ML in Sterile Water 9.6 ML SLOW IVP SCH (00:37)
[2017-08-02 05:27] LABS: #Eosinphils 0.2 thou/uL (0.0-0.7); #Lymphocytes 0.8 thou/uL (1.20-3.40); #Monocytes 0.9 thou/uL (0.11-0.59); #Neutrophils 9.8 thou/uL (1.40-6.50); %Eosinophils 1.9 % (0.0-10.0); %Lymphocytes 6.7 % (21.0-51.0); %Monocytes 7.7 % (0.0-10.0); %Neutrophils 83.7 % (42.0-75.0); Hemoglobin 12.1 g/dL (14.0-18.0); Mean Corpuscular HGB CONC 31.4 g/dL (32.0-36.0); Mean Corpuscular Hemoglobin 28.7 pg (27.0-31.0); Mean Corpuscular Volume 91.6 fl (80.0-94.0); Mean Platelet Volume 7.1 fL (7.4-10.4); Platelet Count 394 thou/uL (130-400); RBC Distribution Width 15.6 % (11.5-14.5); White Blood Cell (WBC) Count 11.7 thou/uL (4.8-10.8)
[2017-08-02 05:34] LABS: Anion Gap 17 mmol/L (10-20); BUN (Urea Nitrogen) 18 mg/dL (8.4-25.7); Calc. Creatinine Clearance 230 mL/min (70-130); Calcium 9.5 mg/dL (7.8-10.44); Carbon Dioxide 26 mmol/L (22-29); Chloride 98 mmol/L (98-107); Estimated GFR-MDRD Greater than 90; Glucose 186 mg/dL (70-105); Potassium 3.8 mmol/L (3.5-5.1); Sodium 137 mmol/L (136-145)
[2017-08-02] MEDS: Mometasone/Formoterol 120 PUFF INHALER INH SCH ×2 (07:48→19:09)
--- NOTE | 2017-08-02 08:29 | PRG ---
DATE OF SERVICE: 08/02/2017 The patient had a good night. He is breathing much better. He is on oxygen. PHYSICAL EXAMINATION: VITAL SIGNS: Blood pressure 150/60, pulse 80, respirations 20, afebrile. NECK: Supple. JVP cannot be assessed due to obese neck. Carotid had good upstroke with no thyromeg delmar. COR: Regular rate and rhythm. CHEST: Slightly diminished breath sounds. ABDOMEN: Obese, soft, nontender. EXTREMITIES: Trace edema. He had palpable pedal pulses. SKIN: There is no evidence of ulcers, lesion or rash. NEUROLOGIC: He is awake, alert, and oriented to person, place, and time. LABORATORY DATA: White blood cell 11.7, his H&H 12.1 and 38.5. His platelet count is 394. His bloo d sugar is 179. ASSESSMENT: 1. Asthmatic bronchitis. 2. Diabetes. 3. Obesity. 4. Obstructive sleep apnea. 5. Hypokalemia. 6. Multiple medical problems. PLAN: We will continue the patient here until cleared by Pulmonology. Again, I appreciate all help from the consultants. We will follow up with a CBC, CMP and chest x-ray in the morning.
[2017-08-02] MEDS: metFORMIN 500 MG TAB PO SCH ×2 (09:07→16:40)
[2017-08-02] MEDS: Potassium Chloride 20 MEQ TAB PO SCH ×4 (09:07→22:23)
[2017-08-02] MEDS: Folic Acid 1 MG TAB PO SCH ×2 (09:07→22:23)
[2017-08-02] MEDS: Venlafaxine HCl XR 150 MG CAP PO SCH (09:07)
[2017-08-02] MEDS: Hydrochlorothiazide 25 MG TAB PO SCH (09:07)
[2017-08-02] MEDS: cycloSPORINE 0.05% Ophthalmic Droperette EA EYE SCH (09:08)
[2017-08-02] MEDS: Bisoprolol Fumarate/HCTZ 5 mg/6.25 mg Tablet PO SCH (09:08)
[2017-08-02] MEDS: Baclofen 10 MG TAB PO SCH ×3 (09:08→22:23)
[2017-08-02] MEDS: Hydroxychloroquine Sulfate 200 MG TAB PO SCH ×2 (09:08→22:22)
[2017-08-02] MEDS: guaiFENesin ER 600 MG TAB PO SCH ×2 (09:08→22:23)
[2017-08-02] MEDS: Lisinopril 20 MG TAB PO SCH ×2 (09:08→22:22)
[2017-08-02] MEDS: Fluticasone Propionate Nasal Spray 16 gm Bottle NASAL SCH ×2 (09:09→22:24)
[2017-08-02] MEDS: Brimonidine Tartrate 0.2% Ophth Soln 5 ml Bottle EA EYE SCH ×2 (09:09→22:25)
[2017-08-02] MEDS: Acetaminophen 325 MG TAB PO PRN (13:13)
[2017-08-02 14:51] VITALS: BMI 43.2
--- NOTE | 2017-08-02 21:52 | PRG ---
DATE OF SERVICE: 08/02/2017 SUBJECTIVE: Mr. Mckinnon states he is feeling better. OBJECTIVE: VITAL SIGNS: He is afebrile, heart rate is 97 this afternoon, respiratory rate 20, oximetry is 96 on 3 liters, blood pressure 135/68. LUNGS: Clear anteriorly. His breath sounds are distant as expected. HEART: Regular rhythm. ABDOMEN: Soft. He is not wheezing like he was when I saw him when he was on the Oncology unit. IMPRESSION: 1. Asthmatic bronchitis. 2. Acute on chronic respiratory failure. 3. Sleep apnea. 4. Life-threatening obesity. 5. Anxiety. PLAN: Continue current care. Appears to be improving. He is dramatically better than when I evaluat ed him, he first came into the hospital.
[2017-08-02] MEDS: Simvastatin 40 MG TAB PO SCH (22:23)
[2017-08-02] MEDS: Fludrocortisone Acetate 0.1 MG TAB PO SCH (22:23)
[2017-08-02] MEDS: Tamsulosin HCl 0.4 MG CAP PO SCH (22:23)
[2017-08-02] MEDS: Pregabalin 75 MG CAP PO SCH (22:23)
[2017-08-02] MEDS: Nortriptyline HCl 25 MG CAP PO SCH (22:23)
[2017-08-02] MEDS: Enoxaparin Sodium 40 MG/0.4 ML SYRINGE SC SCH (22:24)
[2017-08-03] MEDS: cefTRIAXone\\ROCEPHIN 1 GM, Syringe 0.4 ML in Sterile Water 9.6 ML SLOW IVP SCH (00:11)
[2017-08-03] MEDS: Mometasone/Formoterol 120 PUFF INHALER INH SCH ×2 (07:42→18:56)
[2017-08-03] MEDS: Potassium Chloride 20 MEQ TAB PO SCH ×4 (09:00→21:59)
[2017-08-03] MEDS: Fluticasone Propionate Nasal Spray 16 gm Bottle NASAL SCH ×2 (09:00→22:04)
[2017-08-03] MEDS: Brimonidine Tartrate 0.2% Ophth Soln 5 ml Bottle EA EYE SCH ×2 (09:00→22:03)
[2017-08-03] MEDS: metFORMIN 500 MG TAB PO SCH ×2 (09:00→17:02)
[2017-08-03] MEDS: guaiFENesin ER 600 MG TAB PO SCH ×2 (09:01→22:02)
[2017-08-03] MEDS: Venlafaxine HCl XR 150 MG CAP PO SCH (09:01)
[2017-08-03] MEDS: Folic Acid 1 MG TAB PO SCH ×2 (09:01→22:00)
[2017-08-03] MEDS: Hydrochlorothiazide 25 MG TAB PO SCH (09:01)
[2017-08-03] MEDS: Lisinopril 20 MG TAB PO SCH ×2 (09:02→22:02)
[2017-08-03] MEDS: Hydroxychloroquine Sulfate 200 MG TAB PO SCH ×2 (09:02→22:03)
[2017-08-03] MEDS: Bisoprolol Fumarate/HCTZ 5 mg/6.25 mg Tablet PO SCH (09:02)
[2017-08-03] MEDS: Baclofen 10 MG TAB PO SCH ×3 (09:02→22:02)
--- NOTE | 2017-08-03 09:11 | PRG ---
DATE OF SERVICE: 08/03/2017 SUBJECTIVE: The patient had a good night. He is breathing much better. He does have diarrhea now. He denies any other complaints. PHYSICAL EXAMINATION: GENERAL: Upon evaluation, he is awake, alert, and oriented to person, place and time. VITAL SIGNS: Stable. NECK: Supple. JVD cannot be assessed due to obese neck. Carotid had good upstroke with no thyromeg delmar. COR: Regular rate and rhythm. CHEST: Symmetrical. Clear to auscultation and percussion. ABDOMEN: Soft, nontender, obese. Normoactive bowel sounds. No bruit or organomegaly. EXTREMITIES: No edema or cyanosis. He had palpable pedal pulses. SKIN: There is no evidence of ulcers, lesion, or rash. NEUROLOGIC: He is awake, alert, and oriented to person, place, and time. LABORATORY DATA: There is no lab in the chart. X-RAY FINDINGS: Chest x-ray is pending. ASSESSMENT: 1. Pneumonia. 2. Morbid obesity. 3. Sleep apnea. 4. Diabetes. 5. Asthmatic bronchitis. 6. Diarrhea. PLAN: 1. We will check a stool for C. diff, we will also give Imodium. 2. We will also move to the floor if okay with Pulmonary. This is LANDY Tariq-Minerva dictating for Dr. Wan Solis.
--- NOTE | 2017-08-03 09:39 | RAD ---
AP VIEW CHEST: Date: 08/03/17 HISTORY: Pulmonary distress. FINDINGS: Comparison made to previous exam from 08/01/17. AP view of chest demonstrates suboptimal inspiratory effort. There is elevation of the right hemidiap hragm. Cardiomegaly is seen. Extensive perihilar air space opacities and pulmonary vascular congestio n is seen. There may be areas of perihilar bilateral pneumonia. No other acute abnormality seen. Ther e is healing of a fractured right clavicle. IMPRESSION: 1. Elevated right hemidiaphragm. 2. Perihilar air space opacities concerning for bilateral pneumonia. POS: [facility]
[2017-08-03] MEDS: cycloSPORINE 0.05% Ophthalmic Droperette EA EYE SCH (11:29)
[2017-08-03] MEDS: Loperamide HCl 2 MG CAP PO PRN (15:05)
--- NOTE | 2017-08-03 21:11 | PRG ---
DATE OF SERVICE: 08/03/2017 Vaibhav Mckinnon is doing great compared to how he was shortly after presentation to the hospital. OBJECTIVE: VITAL SIGNS: When I met him, he was afebrile, heart rate is 91, respiratory rate is in the 20s. Oxi metry is in the low 90s. Blood pressure 150/98. CHEST: I do not hear any wheezes on examining his chest. HEART: Regular rhythm. ABDOMEN: Soft. LABORATORY DATA: There is no new lab today. IMPRESSION: 1. Asthmatic bronchitis. 2. Obesity. 3. Sleep apnea. 4. Deconditioning clinically appears to be stable to move to an unmonitored bed.
[2017-08-03] MEDS: Nortriptyline HCl 25 MG CAP PO SCH (21:59)
[2017-08-03] MEDS: Pregabalin 75 MG CAP PO SCH (22:00)
[2017-08-03] MEDS: Simvastatin 40 MG TAB PO SCH (22:02)
[2017-08-03] MEDS: Enoxaparin Sodium 40 MG/0.4 ML SYRINGE SC SCH (22:04)
[2017-08-03] MEDS: Fludrocortisone Acetate 0.1 MG TAB PO SCH (22:05)
[2017-08-03] MEDS: Tamsulosin HCl 0.4 MG CAP PO SCH (22:41)
[2017-08-04] MEDS: cefTRIAXone\\ROCEPHIN 1 GM, Syringe 0.4 ML in Sterile Water 9.6 ML SLOW IVP SCH (00:32)
[2017-08-04] MEDS: Mometasone/Formoterol 120 PUFF INHALER INH SCH ×2 (07:46→22:25)
--- NOTE | 2017-08-04 07:54 | PRG ---
DATE OF SERVICE: 08/04/2017 This is LANDY Tariq-Minerva dictating a progress note for Wan Solis M.D SUBJECTIVE: Patient is breathing better. He is moving around a little bit in the bed. He has not b een out of bed since he has been in the hospital. He still has a little bit of diarrhea; however, hi s stool studies are negative. PHYSICAL EXAMINATION: GENERAL: Upon evaluation, he is awake, alert, and oriented to person, place and time. He is on oxyg en. VITAL SIGNS: His blood pressure is 130/80, pulse 90, respirations 20, temperature 99. HEENT: Unremarkable. Normal oropharynx. PERRL, his sclerae not icteric with no arcus senilis or x anthelasma. NECK: Supple. JVD cannot be assessed. He had good upstroke with no thyromegaly. COR: Regular rate and rhythm. CHEST: Symmetrical. Clear to auscultation and percussion upper lobes. ABDOMEN: Soft and obese with normoactive bowel sounds. EXTREMITIES: No edema or cyanosis. He had palpable pedal pulses. SKIN: There is no evidence of ulceration, lesion, or rash. NEUROLOGIC: He is awake, alert, and oriented to person, place, and time. ASSESSMENT: 1. Asthmatic bronchitis. 2. Obesity. 3. Sleep apnea. 4. Deconditioning. 5. Multiple medical problems. 5. Diarrhea, probably from antibiotics. PLAN: We will follow up with CBC and CMP in the morning. Next, we will ask physical therapy and occ upational therapy to see the patient in consultation. As it is Sawpnil Velazquez, I do not know if they will be here, but as unfortunately the patient has not been out of bed and will need to look at him g etting out of bed before he is able to go home. The patient verbalized understanding and all questio ns answered to satisfaction.
[2017-08-04] MEDS: Fluticasone Propionate Nasal Spray 16 gm Bottle NASAL SCH ×2 (08:21→22:43)
[2017-08-04] MEDS: metFORMIN 500 MG TAB PO SCH ×2 (08:22→17:25)
[2017-08-04] MEDS: Baclofen 10 MG TAB PO SCH ×3 (08:23→22:42)
[2017-08-04] MEDS: Venlafaxine HCl XR 150 MG CAP PO SCH (08:23)
[2017-08-04] MEDS: guaiFENesin ER 600 MG TAB PO SCH ×2 (08:24→22:45)
[2017-08-04] MEDS: Potassium Chloride 20 MEQ TAB PO SCH ×4 (08:25→22:46)
[2017-08-04] MEDS: Hydroxychloroquine Sulfate 200 MG TAB PO SCH ×2 (08:26→22:45)
[2017-08-04] MEDS: Folic Acid 1 MG TAB PO SCH ×2 (08:26→22:46)
[2017-08-04] MEDS: Bisoprolol Fumarate/HCTZ 5 mg/6.25 mg Tablet PO SCH (08:28)
[2017-08-04] MEDS: Brimonidine Tartrate 0.2% Ophth Soln 5 ml Bottle EA EYE SCH ×2 (08:29→22:42)
[2017-08-04] MEDS: cycloSPORINE 0.05% Ophthalmic Droperette EA EYE SCH (08:30)
[2017-08-04] MEDS: Hydrochlorothiazide 25 MG TAB PO SCH (08:42)
[2017-08-04] MEDS: Lisinopril 20 MG TAB PO SCH ×2 (08:48→22:42)
[2017-08-04] MEDS: Loperamide HCl 2 MG CAP PO PRN ×2 (12:49→22:41)
--- NOTE | 2017-08-04 19:39 | PRG ---
DATE OF SERVICE: 08/04/2017 SUBJECTIVE: Ino is in no distress. PHYSICAL EXAMINATION: VITAL SIGNS: He is afebrile, heart rate is 60, respiratory rate 17, his oximetry is 98%, blood press ure 106/73. He is not having any fever. He is not wheezing. IMPRESSION: 1. Asthmatic bronchitis essentially resolved. 2. Obesity. 3. Sleep apnea. 4. Deconditioning. PLAN: Continue current care. Treat him with probably 10 days total of antibiotics. His steroids can be converted to p.o. and probably a low dose at this point. The only issue is left is getting him home, ambulatory. We will sign off.
[2017-08-04] MEDS: Fludrocortisone Acetate 0.1 MG TAB PO SCH (22:42)
[2017-08-04] MEDS: Enoxaparin Sodium 40 MG/0.4 ML SYRINGE SC SCH (22:43)
[2017-08-04] MEDS: Pregabalin 75 MG CAP PO SCH (22:44)
[2017-08-04] MEDS: Tamsulosin HCl 0.4 MG CAP PO SCH (22:45)
[2017-08-04] MEDS: Nortriptyline HCl 25 MG CAP PO SCH (22:45)
[2017-08-04] MEDS: Simvastatin 40 MG TAB PO SCH (22:46)
[2017-08-05] MEDS: cefTRIAXone\\ROCEPHIN 1 GM, Syringe 0.4 ML in Sterile Water 9.6 ML SLOW IVP SCH (02:15)
[2017-08-05 06:38] LABS: ALT (SGPT) 34 U/L (8-55); AST (SGOT) 32 U/L (5-34); Albumin 3.3 g/dL (3.5-5.0); Alkaline Phosphatase 54 U/L (40-150); Anion Gap 20 mmol/L (10-20); BUN (Urea Nitrogen) 24 mg/dL (8.4-25.7); Bilirubin, Total 0.2 mg/dL (0.2-1.2); Calc. Creatinine Clearance 195 mL/min (70-130); Calcium 9.4 mg/dL (7.8-10.44); Carbon Dioxide 16 mmol/L (22-29); Chloride 105 mmol/L (98-107); Estimated GFR-MDRD 86; Globulin 3.5 g/dL (2.4-3.5); Glucose 95 mg/dL (70-105); Protein, Total 6.8 g/dL (6.0-8.3); Sodium 136 mmol/L (136-145)
[2017-08-05 07:00] LABS: Hemoglobin 13.4 g/dL (14.0-18.0); Lymphocytes 11 % (21-51); MDiff Complete? YES; Mean Corpuscular Hemoglobin 28.9 pg (27.0-31.0); Mean Corpuscular Volume 93.1 fl (80.0-94.0); Mean Platelet Volume 7.6 fL (7.4-10.4); Monocytes 12 % (0-10); Neutrophil 77 % (42-75); Platelet Count 503 thou/uL (130-400); RBC Distribution Width 15.9 % (11.5-14.5); Red Blood Cell (RBC) Count 4.63 mill/uL (4.70-6.10); White Blood Cell (WBC) Count 19.1 thou/uL (4.8-10.8)
[2017-08-05] MEDS ORDERED: predniSONE 20 MG TAB PO SCH (08:00)
[2017-08-05] MEDS: Folic Acid 1 MG TAB PO SCH ×2 (09:33→21:51)
[2017-08-05] MEDS: Venlafaxine HCl XR 150 MG CAP PO SCH (09:33)
[2017-08-05] MEDS: Baclofen 10 MG TAB PO SCH ×3 (09:33→21:48)
[2017-08-05] MEDS: Bisoprolol Fumarate/HCTZ 5 mg/6.25 mg Tablet PO SCH (09:34)
[2017-08-05] MEDS: Potassium Chloride 20 MEQ TAB PO SCH ×3 (09:35→16:05)
[2017-08-05] MEDS: Hydrochlorothiazide 25 MG TAB PO SCH (09:35)
[2017-08-05] MEDS: guaiFENesin ER 600 MG TAB PO SCH ×2 (09:35→21:49)
[2017-08-05] MEDS: metFORMIN 500 MG TAB PO SCH ×2 (09:36→17:01)
[2017-08-05] MEDS: Brimonidine Tartrate 0.2% Ophth Soln 5 ml Bottle EA EYE SCH ×2 (09:36→21:52)
[2017-08-05] MEDS: Loperamide HCl 2 MG CAP PO PRN (09:36)
[2017-08-05] MEDS: Hydroxychloroquine Sulfate 200 MG TAB PO SCH ×2 (09:36→21:50)
[2017-08-05] MEDS: Mometasone/Formoterol 120 PUFF INHALER INH SCH ×2 (09:50→21:58)
[2017-08-05] MEDS: cycloSPORINE 0.05% Ophthalmic Droperette EA EYE SCH (09:51)
--- NOTE | 2017-08-05 11:56 | RAD ---
AP VIEW CHEST: Date: 08/05/17 HISTORY: Respiratory distress. FINDINGS: Comparison made to previous exam from 08/03/17. AP view of chest demonstrates cardiomegaly. Elevation of the right hemidiaphragm is seen. Areas of pa tchy density seen in both lung bases, as well as the left upper lobe, compatible with areas of atelec tasis or scar. Radiographic appearance of the chest is stable. No significant interval changes or new ly developed masses or lesions seen. IMPRESSION: Stable AP view chest with bilateral perihilar and lung base patchy opacities compatible with atelecta sis or stable pneumonia. POS: [facility]
[2017-08-05] MEDS: Lisinopril 20 MG TAB PO SCH ×2 (12:50→21:42)
[2017-08-05] MEDS ORDERED: Gabapentin 400 MG CAP PO SCH (17:00)
[2017-08-05] MEDS: Gabapentin 400 MG CAP PO SCH (21:44)
[2017-08-05] MEDS: Pregabalin 75 MG CAP PO SCH (21:45)
[2017-08-05] MEDS: Tamsulosin HCl 0.4 MG CAP PO SCH (21:48)
[2017-08-05] MEDS: Fludrocortisone Acetate 0.1 MG TAB PO SCH (21:49)
[2017-08-05] MEDS: Nortriptyline HCl 25 MG CAP PO SCH (21:50)
[2017-08-05] MEDS: Simvastatin 40 MG TAB PO SCH (21:50)
[2017-08-05] MEDS: Enoxaparin Sodium 40 MG/0.4 ML SYRINGE SC SCH (21:51)
[2017-08-06] MEDS: cefTRIAXone\\ROCEPHIN 1 GM, Syringe 0.4 ML in Sterile Water 9.6 ML SLOW IVP SCH (01:51)
[2017-08-06 06:24] LABS: Anion Gap 18 mmol/L (10-20); BUN (Urea Nitrogen) 40 mg/dL (8.4-25.7); Calc. Creatinine Clearance 147 mL/min (70-130); Calcium 9.4 mg/dL (7.8-10.44); Carbon Dioxide 20 mmol/L (22-29); Chloride 105 mmol/L (98-107); Estimated GFR-MDRD 64; Glucose 91 mg/dL (70-105); Potassium 4.8 mmol/L (3.5-5.1); Sodium 138 mmol/L (136-145)
[2017-08-06] MEDS: Mometasone/Formoterol 120 PUFF INHALER INH SCH (07:47)
[2017-08-06 07:49] LABS: Hemoglobin 13.1 g/dL (14.0-18.0); Mean Corpuscular HGB CONC 31.3 g/dL (32.0-36.0); Mean Corpuscular Hemoglobin 29.1 pg (27.0-31.0); Mean Corpuscular Volume 93.1 fl (80.0-94.0); Mean Platelet Volume 8.3 fL (7.4-10.4); Platelet Count 508 thou/uL (130-400); RBC Distribution Width 16.6 % (11.5-14.5); Red Blood Cell (RBC) Count 4.52 mill/uL (4.70-6.10); White Blood Cell (WBC) Count 17.2 thou/uL (4.8-10.8)
[2017-08-06] MEDS ORDERED: predniSONE 5 MG TAB PO SCH (08:00)
[2017-08-06] MEDS: Baclofen 10 MG TAB PO SCH ×2 (08:28→16:57)
[2017-08-06] MEDS: Folic Acid 1 MG TAB PO SCH (08:29)
[2017-08-06] MEDS: Gabapentin 400 MG CAP PO SCH (08:30)
[2017-08-06 08:32] LABS: Band 5 % (5-11); Eosinophils 1 % (0-10); Lymphocytes 23 % (21-51); MDiff Complete? YES; Metamyelocyte 1 % (0-0); Monocytes 3 % (0-10); Myelocyte 4 % (0-0); Neutrophil 59 % (42-75); PLT Morphology Comment Appears Increased; Reactive Lymphocytes 4 % (0-10); Toxic Granulation SLIGHT
[2017-08-06] MEDS: metFORMIN 500 MG TAB PO SCH ×2 (08:33→16:57)
[2017-08-06] MEDS: guaiFENesin ER 600 MG TAB PO SCH (08:34)
[2017-08-06] MEDS: Brimonidine Tartrate 0.2% Ophth Soln 5 ml Bottle EA EYE SCH (08:36)
[2017-08-06] MEDS: Hydroxychloroquine Sulfate 200 MG TAB PO SCH (08:37)
[2017-08-06] MEDS: Hydrochlorothiazide 25 MG TAB PO SCH (08:37)
[2017-08-06] MEDS: cycloSPORINE 0.05% Ophthalmic Droperette EA EYE SCH (08:38)
[2017-08-06] MEDS: Lisinopril 20 MG TAB PO SCH (08:38)
[2017-08-06] MEDS: Venlafaxine HCl XR 150 MG CAP PO SCH (08:39)
[2017-08-06] MEDS: Bisoprolol Fumarate/HCTZ 5 mg/6.25 mg Tablet PO SCH (08:47)
--- NOTE | 2017-08-06 11:23 | PRG ---
DATE OF SERVICE: 08/06/2017 This morning he is doing better, less short of breath. PHYSICAL EXAMINATION: VITAL SIGNS: Sats are 90%, blood pressure 160/70, temperature 98, pulse 80. CHEST: Chest reveals decreased breath sounds, no wheezing. CARDIAC: Normal S1, S2. LABORATORY: White count 7,000, H&H 12 and 30, platelets 142. Electrolytes are normal. X-ray shows stable findings, bibasilar atelectasis. IMPRESSION: 1. Respiratory failure. 2. Asthma. 3. Morbid obesity. 4. Sleep apnea. PLAN: Switch him to oral antibiotics, continue prednisone. Discharge home anytime. Follow up in e office as needed.
[2017-08-06] MEDS: Loperamide HCl 2 MG CAP PO PRN (12:48)
[2017-08-06 17:37] VITALS: BP 110/64; TEMP 98.1
[2017-08-06] MEDS ORDERED: Cefdinir 300 MG CAP PO SCH (21:00)
--- NOTE | 2017-08-07 13:57 | DIS ---
DATE OF ADMISSION: 07/28/2017 DATE OF DISCHARGE: 08/06/2017 CHIEF COMPLAINT ON ADMISSION: Left lower lobe pneumonia. History and physical have been dictated. I will resume from there. HOSPITAL COURSE: The patient was admitted to the emergency room on 07/28/2017 with visible left lower lobe pneumonia and dehydration. He was placed in a medical bed and IV fluids and antibiotics were begun after cultures were taken. Dr. Diego saw the patient in consultation on 07/29/2017 and felt that there was also an exacerbation of asthma with bronchitis. He recommended steroids, continuing IV fluids, monitoring his glucose levels carefully. He also was started on some CPAP. White count on 07/29/2017 was 10.5. He has had diminished breath sounds in left lower lobe, but breath sounds were improving. It was recommended that we get him out of bed and had chest percussion and postural drainage. The patient was reevaluated on 07/30/2017. He was on CPAP, hard to arouse, but he was afebrile during that time. White count had diminished at 8 by 07/31/2017. Dr. Melo was seeing the patient, he was very short of breath still, and was on BiPAP most of the time. He felt that he also had some acute on chronic respiratory failure and added Levaquin to his antibiotics. By 08/02/2017, he was feeling much better. He had had a good night. He is on oxygen. Blood pressure 150/60. He had diminished breath sounds throughout. By 08/03/2017, continuing to have a good night, breathing better, did develop some diarrhea. A stool specimen was sent to evaluate for C. difficile. The stool specimen returned antigen positive, but there was no toxin indicating he had had C. difficile in the past, but was not currently infected with C. difficile. By 08/04/2017, continued to breathe better, moving around more in bed. His plan was to continue physical therapy, occupational therapy, get him out of bed, or continue nebulizer treatments. By 08/05/2017, he was alert, no complaints. White count, however, had elevated to 19,000 at this point. Chest was tight with diffuse wheezes at which time he was felt to have more of an asthmatic bronchitic condition as well as being deconditioned. His medications were adjusted. By 08/06/2017, he felt significantly improved and was able to be discharged home. At this point, his white count had diminished to 17,000, and it was felt that he could be discharged home on oral antibiotics and tapering steroid dose and be reevaluated in 1 week. DIAGNOSES: At the time of discharge, 1. Left lower lobe pneumonia with asthmatic bronchitis, respiratory failure, acute on chronic. 2. Morbid obesity. 3. Sleep apnea. MEDICATIONS: At discharge included resumption of his Breo 200/25 once a day, cefdinir 300 mg b.i.d., a tapering dose of prednisone at 15 mg for 5 days, 10 mg for 5 days, then 5 mg for 5 days and he is to follow up with Dr. Solis in 7 days for reassessment. He was discharged in stable condition. Time needed to review his record, examine patient, pet counselor patient and dictate summary was 35 minutes. [facility]
--- NOTE | 2017-08-10 11:18 | EKG ---
Test Reason : Blood Pressure : / mmHG Vent. Rate : 125 BPM Atrial Rate : 125 BPM P-R Int : 132 ms QRS Dur : 096 ms QT Int : 324 ms P-R-T Axes : 025 004 053 degrees QTc Int : 467 ms Sinus tachycardia with Fusion complexes Nonspecific T wave abnormality Abnormal ECG Confirmed by MIGUELANGEL PURCELL M.D. ([id number]), web editor FLORI SUE ([id number]) on 08/10/2017 11:18:15 AM Referred By: Confirmed By:MIGUELANGEL PURCELL M.D.
== END 2017-08-06 18:04 | disposition home or self-care (01) | DRG 871 ==
LOC: ERS 00:45 → IMCU/EMU 03:26 → ONC 18:19 → IMCU/EMU 07-31 13:05 → T4-A 08-03 13:21
PROVIDERS: ADMIT Specialist; ATTEND Specialist
DX: A41.9 Sepsis, unspecified organism (principal); J18.9 Pneumonia, unspecified organism; J96.20 Acute and chronic respiratory failure, unspecified whether with hypoxia or hypercapnia; K52.1 Toxic gastroenteritis and colitis; E66.01 Morbid (severe) obesity due to excess calories; J45.901 Unspecified asthma with (acute) exacerbation; Z68.41 Body mass index [BMI] 40.0-44.9, adult; E11.9 Type 2 diabetes mellitus without complications; H40.9 Unspecified glaucoma; I10 Essential (primary) hypertension; K21.9 Gastro-esophageal reflux disease without esophagitis; I25.10 Atherosclerotic heart disease of native coronary artery without angina pectoris; E86.0 Dehydration; E87.6 Hypokalemia; G47.33 Obstructive sleep apnea (adult) (pediatric); F41.9 Anxiety disorder, unspecified; R19.7 Diarrhea, unspecified; Z88.2 Allergy status to sulfonamides; Z88.1 Allergy status to other antibiotic agents; Z88.8 Allergy status to other drugs, medicaments and biological substances; Z89.511 Acquired absence of right leg below knee; Z89.422 Acquired absence of other left toe(s); Z86.718 Personal history of other venous thrombosis and embolism; Z83.3 Family history of diabetes mellitus; Z82.49 Family history of ischemic heart disease and other diseases of the circulatory system; T36.95XA Adverse effect of unspecified systemic antibiotic, initial encounter; Y92.239 Unspecified place in hospital as the place of occurrence of the external cause
CPT/HCPCS: 36415; 36416; 71010; 80048; 80053; 80061; 82553; 83605; 83880; 84484; 85025; 85379; 87040; 87324; 87449; 87493; 93005; 94640; 94660; 94664; 96361; 96365; 96367; 96375; A4216; G8978-GP-CK; G8979-GP-CJ; J0456; J0696; J1650; J2920; J2930; J3475; J7050; J7506; J7620

== ENCOUNTER 2017-08-09 12:25 | Inpatient (IN) | payer MEDICARE ==
[2017-08-09 13:29] LABS: Mean Corpuscular Hemoglobin 29.6 pg (27.0-31.0); Mean Corpuscular Volume 92.3 fl (80.0-94.0); Mean Platelet Volume 7.9 fL (7.4-10.4); Platelet Count 367 thou/uL (130-400); RBC Distribution Width 15.9 % (11.5-14.5); Red Blood Cell (RBC) Count 4.06 mill/uL (4.70-6.10); White Blood Cell (WBC) Count 24.7 thou/uL (4.8-10.8)
[2017-08-09 13:44] LABS: Anisocytosis SLIGHT = 6-15 cells (100X) (0-5/hpf); Band 11 % (5-11); Lymphocytes 1 % (21-51); MDiff Complete? YES; Metamyelocyte 3 % (0-0); Monocytes 6 % (0-10); Myelocyte 2 % (0-0); Neutrophil 77 % (42-75); PLT Morphology Comment Appears Adequate; Polychromasia SLIGHT = 2-3 cells (100X) (0-2/hpf)
[2017-08-09 13:47] LABS: ALT (SGPT) 42 U/L (8-55); AST (SGOT) 62 U/L (5-34); Albumin 3.5 g/dL (3.5-5.0); Alkaline Phosphatase 59 U/L (40-150); Anion Gap 16 mmol/L (10-20); BUN (Urea Nitrogen) 22 mg/dL (8.4-25.7); Bilirubin, Total 0.4 mg/dL (0.2-1.2); Calc. Creatinine Clearance 0 mL/min (70-130); Calcium 9.7 mg/dL (7.8-10.44); Carbon Dioxide 22 mmol/L (22-29); Chloride 103 mmol/L (98-107); Estimated GFR-MDRD 76; Globulin 3.1 g/dL (2.4-3.5); Glucose 196 mg/dL (70-105); Potassium 4.4 mmol/L (3.5-5.1); Protein, Total 6.6 g/dL (6.0-8.3); Sodium 137 mmol/L (136-145)
[2017-08-09] MEDS ORDERED: Famotidine/PF 20 mg/2ml Vial ONE (14:30)
[2017-08-09] MEDS ORDERED: methylPREDNISolone Sod Succ/PF 125 MG/2 ML VIAL ONE (14:30)
[2017-08-09] MEDS ORDERED: diphenhydrAMINE 50 MG/ML VIAL ONE (14:30)
--- NOTE | 2017-08-09 14:57 | ULT ---
VENOUS DOPPLER ULTRASOUND OF THE LEFT LOWER EXTREMITY: HISTORY: Left lower extremity pain. TECHNIQUE: Mathis-scale, color-flow, and spectral Doppler imaging of the deep venous system of the left lower extr emity is performed. FINDINGS: There is good flow, compression, and augmentation noted in the left common femoral, femoral, deep fem oral, popliteal, posterior tibial, and greater saphenous veins. IMPRESSION: No evidence of deep venous thrombosis in the left lower extremity. POS: [facility]
[2017-08-09 15:01] LABS: PTT 24.2 SEC (22.9-36.1)
[2017-08-09 15:06] LABS: INR-International Normal Ratio 1.1; Prothrombin Time 14.6 SEC (12.0-14.7)
[2017-08-09 15:11] LABS: Troponin I 0.016 ng/mL (< 0.028)
[2017-08-09 15:14] LABS: CKMB 6.8 ng/mL (0-6.6)
--- NOTE | 2017-08-09 15:39 | ULT ---
LEFT LOWER EXTREMITY ARTERIAL DOPPLER ULTRASOUND (RANKIN-SCALE, COLOR-FLOW, AND SPECTRAL DOPPLER): HISTORY: Left lower extremity pain. FINDINGS: There is triphasic wave-form seen in the left common femoral, deep femoral, superficial femoral, and popliteal arteries. Monophasic flow is seen in the dorsalis pedis artery. The anterior and posterior tibial arteries are not satisfactorily visualized. The peak systolic velocities in the left lower extremity are as follows: FARM EQUIPMENT ENGINEER: 131 cm per second DEEP FEMORAL: 114 cm per second PROXIMAL SFA: 108 cm per second MID SFA: 88 cm per second DISTAL SFA: 67 cm per second POPLITEAL: 62 cm per second DORSALIS PEDIS: 15 cm per second IMPRESSION: Exam limited to absence of visualization of the left anterior and posterior tibial arteries. Please see above. POS: [facility]
[2017-08-09] MEDS ORDERED: Ondansetron HCl/PF 4 MG/2 ML Vial IVP PRN (16:48)
[2017-08-09] MEDS ORDERED: Acetaminophen 325 MG TAB PO PRN (16:48)
[2017-08-09] MEDS ORDERED: HumaLOG 300 UNITS/3 ML VIAL SC PRN (16:48)
[2017-08-09] MEDS ORDERED: Dextrose 50% Abboject 50 ML SYRINGE SLOW IVP PRN ×2 (16:48)
[2017-08-09] MEDS ORDERED: Dextrose 5% in Water 1,000 ML IV PRN (16:48)
[2017-08-09] MEDS ORDERED: HYDROcodone/Acetaminophen 5/325 mg Tablet PO PRN (16:48)
[2017-08-09] MEDS ORDERED: Milk Of Magnesia 30 ML UDCUP PO PRN (16:48)
--- NOTE | 2017-08-09 17:09 | HP ---
HISTORY OF PRESENT ILLNESS: This is a 51-year-old gentleman who has had pain in his lone remaining l eft lower extremity for the past 2-3 days. The patient was discharged from the hospital about 3 days ago and reported some ankle pain in his leg at the time of discharge. When he got home, he was unab le to bear weight on the leg due to pain and it has persisted in the lower calf, the front of his leg , and in his foot. 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 The patient's c ardiovascular risk factors include diabetes mellitus and dyslipidemia. Past medical history otherwis e is significant for hypertension, dyslipidemia, Botetourt's disease, depression, anxiety, peripheral n europathy, glaucoma, mild coronary artery disease, gastroesophageal reflux, prostatic hypertrophy, an d migraine headaches. PAST SURGICAL HISTORY: Includes below-knee amputation on the right. 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 He is accompanied by his . He has not smoked since 2012 and he was a pack-a-day smoker prior to that. He does not use illicit drugs. ALLERGIES: He reports allergies to SULFA, IODINE, and CELEBREX. MEDICATIONS: Obtained primarily from his recent discharge. PHYSICAL EXAMINATION: GENERAL: He is a cooperative, alert gentleman. No acute distress. He is wearing nasal cannula oxyg en. LUNGS: He has bilateral rhonchi with no wheezes. CARDIAC: No murmurs. Mild resting tachycardia. ABDOMEN: Obese, nontender. EXTREMITIES: He has palpable femoral pulses, as well as left popliteal pulse. He has a tight left a nterior compartment with overlying erythema that is tender to palpation. EXTREMITIES: Upper calf is warm to palpation and the distal third of his calf is cold as did over hi s anterior compartment. His foot is cold, pale, mottled. He does have some plantar flexion of his t oes, but no dorsiflexion. He has anesthetic in his foot, but tender to palpation in the ankle region as well as all the entire anterior compartment. He has a right BKA. At this time, I have offered angiography of his left lower extremity, but it appears at this time meryl t his ischemia has been of 2-3 days' duration and his anterior compartment appears to be infarcted an d his foot appears to be nonviable at this time. He has no Doppler signals in his anterior tibial, p osterior tibial, or peroneal. He has a palpable popliteal pulse and a Doppler signal that is at leas t biphasic in his popliteal artery. At this time, above-knee amputation seems to be the most appropr iate course of action with the previous interventional attempts in salvaging his right leg being unsu ccessful. The patient is agreeable to this. He did have lunch this afternoon, so we will just plan on surgical intervention tomorrow morning.
[2017-08-09] MEDS: HYDROcodone/Acetaminophen 5/325 mg Tablet PO PRN ×2 (18:35→22:52)
[2017-08-09] MEDS: metFORMIN 500 MG TAB PO SCH (18:35)
[2017-08-09 18:45] VITALS: BMI 43.4
[2017-08-09 19:04] LABS: Lactic Acid 3.8 mmol/L (0.5-2.2)
--- NOTE | 2017-08-09 20:42 | RAD ---
PA AND LATERAL OF THE CHEST 08/09/17 INDICATION: Preop evaluation. COMPARISON: Prior exam dated 08/06/16. FINDINGS: There is stable elevation of the right hemidiaphragm and right basilar atelectasis and/or scarring. M ild cardiomegaly is stable. No pleural effusion or pneumothorax is evident. Osseous structures are st able. Healed deformity is seen involving the right clavicle. IMPRESSION: No acute cardiopulmonary abnormality. Stable exam. POS: [facility]
[2017-08-09] MEDS: Pregabalin 75 MG CAP PO SCH (20:47)
[2017-08-09] MEDS: Simvastatin 40 MG TAB PO SCH (20:47)
[2017-08-09] MEDS: Gabapentin 300 MG CAP PO SCH (20:48)
[2017-08-09] MEDS: Baclofen 10 MG TAB PO SCH (20:48)
[2017-08-09] MEDS: Famotidine 20 MG TAB PO SCH (20:48)
[2017-08-09] MEDS: Fludrocortisone Acetate 0.1 MG TAB PO SCH (20:48)
[2017-08-09] MEDS: Tamsulosin HCl 0.4 MG CAP PO SCH (20:48)
[2017-08-09] MEDS: Docusate 100 MG CAP PO SCH (20:48)
[2017-08-09] MEDS: Nortriptyline HCl 25 MG CAP PO SCH (20:48)
[2017-08-09] MEDS: cycloSPORINE 0.05% Ophthalmic Droperette EA EYE SCH (20:48)
[2017-08-09] MEDS: Heparin 5,000 UNITS/ML VIAL SC SCH (20:55)
[2017-08-09] MEDS ORDERED: cycloSPORINE 0.05% Ophthalmic Droperette EA EYE SCH (21:00)
[2017-08-09] MEDS ORDERED: Sodium Chloride 0.9% 1,000 ML IV SCH (22:00)
[2017-08-10] MEDS: Bisoprolol Fumarate/HCTZ 5 mg/6.25 mg Tablet PO SCH (06:12)
[2017-08-10] MEDS: cefTRIAXone\\ROCEPHIN 1 GM, Syringe 0.4 ML in Sterile Water 9.6 ML SLOW IVP SCH (06:12)
[2017-08-10] MEDS ORDERED: cefTRIAXone\\ROCEPHIN 1 GM in Sodium Chloride 0.9% 100 ML IVPB SCH (07:00)
[2017-08-10] MEDS ORDERED: Fentanyl 100 MCG/2 ML VIAL ONE ×2 (07:32→08:03)
[2017-08-10] MEDS ORDERED: CEFAZOLIN/Water 2 GM/20 ML SYRINGE ONE (07:41)
[2017-08-10] MEDS: metFORMIN 500 MG TAB PO SCH ×2 (08:24→16:39)
[2017-08-10] MEDS: Baclofen 10 MG TAB PO SCH ×3 (08:25→21:53)
[2017-08-10] MEDS: Docusate 100 MG CAP PO SCH ×2 (08:25→21:53)
[2017-08-10] MEDS: predniSONE 20 MG TAB PO SCH (08:25)
[2017-08-10] MEDS: cycloSPORINE 0.05% Ophthalmic Droperette EA EYE SCH ×2 (08:26→21:55)
[2017-08-10] MEDS: Gabapentin 300 MG CAP PO SCH ×2 (08:26→21:53)
[2017-08-10] MEDS: Famotidine 20 MG TAB PO SCH ×2 (08:26→21:54)
[2017-08-10] MEDS: Heparin 5,000 UNITS/ML VIAL SC SCH ×2 (08:26→21:58)
[2017-08-10] MEDS ORDERED: HYDROmorphone 0.5 MG/0.5 ML SYRINGE ONE (08:48)
[2017-08-10] MEDS ORDERED: Prevnar 13-Val Conj/PF 0.5 ML SYRINGE IM ONE (09:00)
--- NOTE | 2017-08-10 09:52 | CON ---
CHIEF COMPLAINT ON ADMISSION: Left leg pain. HISTORY OF PRESENT ILLNESS: The patient is a 51-year-old male recently discharged from [facility] for left lower lobe pneumonia with exacerbation of asthma and bronchitis, who states that, just prior to discharge , he began to have left ankle pain in the hospital. He and Dr. Solis both thought that with the cold front this was probably due to arthritic inflammation. As the patient went home, the pain intensified to the point where he was not able to ambulate and being at the holidays. The called to get in to see Dr. Solis, at which time he was booked up and finally Dr. Solis got a call that his pain in his left leg was intolerable and cold, at which point, Dr. Solis recommended that he go straight to the ER for reevaluation. On arrival to the ER, the leg was cold, blue, mottled, and painful to touch. In the emergency room, a vascular evaluation was performed, which showed no evidence of DVT in the left lower extremity. Ultrasound of that extremity showed that the posterior tibial artery and anterior tibial arteries were not satisfactorily visualized necessitating a further evaluation. Dr. Carroll came in and saw the patient and felt that his circulation of this leg was severely compromised, in fact an anterior compartment syndrome was probably present in the anterior part of the leg and that ultimately the viability of this extremity was no longer possible and amputation will be necessary, probably above the knee. He was placed in the hospital for this to take place. PAST MEDICAL HISTORY: As mentioned previously, was a recent hospitalization for left lower lobe pneumonia, exacerbation of asthma with bronchitis and discharged on 08/06/2017. He also has a history of coronary artery disease; diabetes, noninsulin dependent; glaucoma. He has had a prior history of DVT, hypertension, hyperlipidemia, Esmeralda's disease, asthma, insomnia, peripheral neuropathy, dry eyes, migraine headaches, GERD, and BPH. PAST SURGICAL HISTORY: Includes a right [id number]-[id number] amputation and amputation of three toes on the left foot due to peripheral vascular disease. PSYCHIATRIC HISTORY: Includes depression and anxiety. SOCIAL HISTORY: No alcohol use. 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 He is . ALLERGIES: SULFA AND CELEBREX. MEDICATIONS: On admission include Breo Ellipta 100/25 once a day, hydrochlorothiazide 25 daily, hydroxychloroquine 200 mg b.i.d., [place] q.6 hours p.r.n. pain, Zocor 40 mg at bedtime, sertraline 200 mg daily, nortriptyline 25 mg at bedtime for insomnia, baclofen 10 mg t.i.d., Lyrica 300 mg daily for the peripheral neuropathic pain, folic acid 0.4 mg daily, Ziac 5/6.25 mg daily, Effexor 300 mg daily, tramadol 50 mg q.4 hours p.r.n. pain, lisinopril 10 mg daily, prednisone 10 mg daily, Florinef 0.1 mg daily, omeprazole 40 mg daily, rizatriptan 10 mg p.r.n. migraine headaches, and Restasis drops once a day for dry eyes. REVIEW OF SYSTEMS: At this time is significant for the pain in the left lower leg, but his breathing currently is stable and doing well. He denies chest pain or shortness of breath. No blood in urine or stool. Denies headaches or blurred vision. No skin rashes other than that the bluish cold mottling present in the left lower extremity. PHYSICAL EXAMINATION: At the time of admission, VITAL SIGNS: Blood pressure 139/89, pulse was 126, respirations 20, temperature 98.2. Pain scale 6/10 in left lower extremity and O2 sat 94% on 2 liters oxygen. GENERAL: This is an obese male, alert, oriented, and cooperative. HEENT: Normocephalic and atraumatic. Pupils equal, round, and reactive to light. Extraocular muscles are intact. TMs, nares, pharynx are clear. NECK: Supple, trachea midline, no mass, no bruits. CHEST: With good breath sounds bilaterally at this time. HEART: Regular rate and rhythm, no murmurs. ABDOMEN: Obese, unable to appreciate organomegaly or tenderness. GENITOURINARY: Deferred. EXTREMITIES: With BKA on the right and left with cold, mottling of left foot, tender to slight touch. No pulses present. This extends up to about the knee. SKIN: Skin with the aforementioned cold temperature to left lower extremity and mottling present. There is diffuse bruising in upper extremities due to previous IV attempts and placement and blood draws. NEUROLOGIC: Cranial nerves are intact. Unable to test gait and cerebellar function. Sensory exam is grossly intact. Mental status is baseline. LABORATORY DATA: Lab work at this time, WBC is 24.7, hemoglobin 12, hematocrit 37.4 with platelets at 367. Sodium at 137, potassium 4.4, chloride 103, CO2 of 22, BUN 22, creatinine 1.02, glucose 196. Lactic acid initially at 2.61-3.8. AST elevated at 62. CK-MB elevated at 6.8. Troponin negative at 0.06. ASSESSMENT: 1. Severe peripheral vascular disease with ischemia to the left lower extremity , anterior compartment syndrome in the anterior tibial distribution. 2. Recent exacerbation of asthma/bronchitis. 3. Recent left lower lobe pneumonia. 4. Diabetes. 5. Hypertension. 6. Obstructive sleep apnea. PLAN: Will be htndm-wvcs-eavshdslvy per Dr. Carroll. I will follow him medically for supportive care and he will need extensive rehabilitation and therapy to develop his upper body strength now to cope with his new lifestyle. Time involved reviewing charts, examining patient, recording findings was [address] [facility]
[2017-08-10] MEDS ORDERED: Promethazine HCl 25 MG/ML VIAL IM/IV PRN (10:01)
[2017-08-10] MEDS ORDERED: HYDROcodone/Acetaminophen 7.5/325 mg Tablet PO PRN (11:22)
--- NOTE | 2017-08-10 11:45 | OP ---
DATE OF PROCEDURE: 08/10/2017 PREOPERATIVE DIAGNOSIS: Ischemic left lower extremity. POSTOPERATIVE DIAGNOSIS: Ischemic left lower extremity. PROCEDURE: Left knee disarticulation. SURGEON: Bulmaro Carroll M.D. ANESTHESIA: General. ESTIMATED BLOOD LOSS: Less than 200. PROCEDURE IN DETAIL: After adequate anesthesia had been obtained, the patient was prepped and draped . An incision was made after marking the skin with a posterior flap. The patellar ligament, after t he skin incision was made, was mobilized off of the tibia and then the knee joint was entered dividin g the capsular attachments as well as the anterior and posterior cruciate ligaments. Hamstring tendo ns were divided laterally and medially and the leg was then amputated leaving a portion of the gastro c muscle. Following this, the area was thoroughly irrigated and a small drain was placed through a l ateral stab incision. The patellar tendon was then mobilized after removing its fat pad and secured to the cruciate ligaments with two #1 Ti-Cron sutures. This was after thorough irrigation. The michael nathaly muscle was then secured with Ethibond sutures over the femoral condyles and then the subcutaneous tissue was reapproximated with interrupted Vicryl sutures. The skin was closed in with interrupted Vicryl subcuticular sutures and dimitri. The patient tolerated the procedure and dressings were appl ied.
[2017-08-10] MEDS: HYDROcodone/Acetaminophen 7.5/325 mg Tablet PO PRN ×3 (11:53→23:04)
[2017-08-10] MEDS ORDERED: Lidocaine 1% PF 5 ML VIAL ONE (12:22)
[2017-08-10] MEDS ORDERED: PHENYLEPHRINE-NS 100 MCG/ML 10 ML SYRINGE ONE (12:22)
[2017-08-10] MEDS ORDERED: Propofol 200 MG/20 ML VIAL ONE (12:22)
[2017-08-10] MEDS ORDERED: diphenhydrAMINE 50 MG/ML VIAL ONE (12:22)
[2017-08-10] MEDS ORDERED: Ondansetron HCl/PF 4 MG/2 ML Vial ONE (12:22)
[2017-08-10] MEDS ORDERED: Glycopyrrolate 0.2 MG/ML 5 ML SYRINGE ONE (12:22)
[2017-08-10] MEDS: Fentanyl 100 MCG/2 ML VIAL SLOW IVP PRN ×4 (14:27→21:43)
[2017-08-10] MEDS: Tamsulosin HCl 0.4 MG CAP PO SCH (21:54)
[2017-08-10] MEDS: Simvastatin 40 MG TAB PO SCH (21:54)
[2017-08-10] MEDS: Fludrocortisone Acetate 0.1 MG TAB PO SCH (21:55)
[2017-08-10] MEDS: Nortriptyline HCl 25 MG CAP PO SCH (21:56)
[2017-08-10] MEDS: Pregabalin 75 MG CAP PO SCH (23:04)
[2017-08-11] MEDS: Fentanyl 100 MCG/2 ML VIAL SLOW IVP PRN ×5 (01:03→20:59)
[2017-08-11] MEDS: HYDROcodone/Acetaminophen 7.5/325 mg Tablet PO PRN ×4 (03:14→19:42)
[2017-08-11] MEDS: Furosemide 40 MG TAB PO SCH (06:17)
[2017-08-11] MEDS: cefTRIAXone\\ROCEPHIN 1 GM, Syringe 0.4 ML in Sterile Water 9.6 ML SLOW IVP SCH (06:17)
[2017-08-11] MEDS: predniSONE 20 MG TAB PO SCH (08:23)
[2017-08-11] MEDS: metFORMIN 500 MG TAB PO SCH ×2 (08:23→17:49)
[2017-08-11] MEDS: Baclofen 10 MG TAB PO SCH ×3 (08:23→20:47)
[2017-08-11] MEDS: Docusate 100 MG CAP PO SCH ×2 (08:23→20:47)
[2017-08-11] MEDS: Gabapentin 300 MG CAP PO SCH ×2 (08:23→20:46)
[2017-08-11] MEDS: Famotidine 20 MG TAB PO SCH ×2 (08:24→20:46)
[2017-08-11] MEDS: Polyethylene Glycol 3350 17 GM Packet PO SCH (08:24)
[2017-08-11] MEDS: Heparin 5,000 UNITS/ML VIAL SC SCH ×2 (08:24→20:47)
[2017-08-11] MEDS: Potassium Chloride 10 MEQ TAB PO SCH (08:24)
[2017-08-11] MEDS: cycloSPORINE 0.05% Ophthalmic Droperette EA EYE SCH (08:32)
[2017-08-11] MEDS: Bisoprolol Fumarate/HCTZ 5 mg/6.25 mg Tablet PO SCH (11:22)
[2017-08-11 13:43] LABS: #Eosinphils 0.7 thou/uL (0.0-0.7); #Lymphocytes 0.9 thou/uL (1.20-3.40); #Monocytes 1.5 thou/uL (0.11-0.59); #Neutrophils 14.2 thou/uL (1.40-6.50); %Basophils 0.2 % (0.0-1.0); %Lymphocytes 5.3 % (21.0-51.0); %Monocytes 8.5 % (0.0-10.0); %Neutrophils 81.9 % (42.0-75.0); Hemoglobin 10.9 g/dL (14.0-18.0); Mean Corpuscular HGB CONC 31.8 g/dL (32.0-36.0); Mean Corpuscular Hemoglobin 29.8 pg (27.0-31.0); Mean Corpuscular Volume 93.8 fl (80.0-94.0); Mean Platelet Volume 7.4 fL (7.4-10.4); Platelet Count 321 thou/uL (130-400); RBC Distribution Width 16.1 % (11.5-14.5); Red Blood Cell (RBC) Count 3.67 mill/uL (4.70-6.10); White Blood Cell (WBC) Count 17.3 thou/uL (4.8-10.8)
[2017-08-11 14:04] LABS: Anion Gap 12 mmol/L (10-20); BUN (Urea Nitrogen) 13 mg/dL (8.4-25.7); Calc. Creatinine Clearance 206 mL/min (70-130); Calcium 8.7 mg/dL (7.8-10.44); Carbon Dioxide 28 mmol/L (22-29); Chloride 99 mmol/L (98-107); Estimated GFR-MDRD Greater than 90; Glucose 209 mg/dL (70-105); Potassium 4.4 mmol/L (3.5-5.1); Sodium 135 mmol/L (136-145)
[2017-08-11] MEDS: Pregabalin 75 MG CAP PO SCH (20:45)
[2017-08-11] MEDS: Tamsulosin HCl 0.4 MG CAP PO SCH (20:46)
[2017-08-11] MEDS: Simvastatin 40 MG TAB PO SCH (20:46)
[2017-08-11] MEDS: Fludrocortisone Acetate 0.1 MG TAB PO SCH (20:46)
[2017-08-11] MEDS: Venlafaxine HCl XR 150 MG CAP PO SCH (20:46)
[2017-08-11] MEDS: Fluticasone Propionate Nasal Spray 16 gm Bottle NASAL SCH (20:47)
[2017-08-11] MEDS: Nortriptyline HCl 25 MG CAP PO SCH (20:47)
[2017-08-12] MEDS: Fentanyl 100 MCG/2 ML VIAL SLOW IVP PRN ×5 (00:48→20:35)
[2017-08-12] MEDS: HYDROcodone/Acetaminophen 7.5/325 mg Tablet PO PRN ×5 (00:49→22:05)
[2017-08-12 05:48] LABS: Anion Gap 12 mmol/L (10-20); BUN (Urea Nitrogen) 14 mg/dL (8.4-25.7); Calc. Creatinine Clearance 245 mL/min (70-130); Carbon Dioxide 30 mmol/L (22-29); Chloride 99 mmol/L (98-107); Estimated GFR-MDRD Greater than 90; Glucose 113 mg/dL (70-105); Potassium 3.8 mmol/L (3.5-5.1); Sodium 137 mmol/L (136-145)
[2017-08-12] MEDS: cefTRIAXone\\ROCEPHIN 1 GM, Syringe 0.4 ML in Sterile Water 9.6 ML SLOW IVP SCH (06:09)
[2017-08-12] MEDS: Furosemide 40 MG TAB PO SCH (06:09)
[2017-08-12 06:35] LABS: Band 4 % (5-11); Lymphocytes 17 % (21-51); MDiff Complete? YES; Mean Corpuscular HGB CONC 30.6 g/dL (32.0-36.0); Mean Corpuscular Volume 94.7 fl (80.0-94.0); Mean Platelet Volume 7.6 fL (7.4-10.4); Metamyelocyte 3 % (0-0); Monocytes 13 % (0-10); Myelocyte 2 % (0-0); Neutrophil 61 % (42-75); PLT Morphology Comment Appears Adequate; Platelet Count 315 thou/uL (130-400); Red Blood Cell (RBC) Count 3.44 mill/uL (4.70-6.10); White Blood Cell (WBC) Count 12.8 thou/uL (4.8-10.8)
[2017-08-12] MEDS: Fluticasone Propionate Nasal Spray 16 gm Bottle NASAL SCH ×2 (08:45→20:32)
[2017-08-12] MEDS: Venlafaxine HCl XR 150 MG CAP PO SCH ×2 (08:45→20:34)
[2017-08-12] MEDS: cycloSPORINE 0.05% Ophthalmic Droperette EA EYE SCH (08:46)
[2017-08-12] MEDS: Bisoprolol Fumarate/HCTZ 5 mg/6.25 mg Tablet PO SCH (08:46)
[2017-08-12] MEDS: Polyethylene Glycol 3350 17 GM Packet PO SCH (08:46)
[2017-08-12] MEDS: Baclofen 10 MG TAB PO SCH ×3 (08:47→20:34)
[2017-08-12] MEDS: Potassium Chloride 10 MEQ TAB PO SCH (08:47)
[2017-08-12] MEDS: Gabapentin 300 MG CAP PO SCH ×2 (08:47→20:34)
[2017-08-12] MEDS: metFORMIN 500 MG TAB PO SCH ×2 (08:47→17:42)
[2017-08-12] MEDS: Docusate 100 MG CAP PO SCH ×2 (08:47→20:34)
[2017-08-12] MEDS: Famotidine 20 MG TAB PO SCH ×2 (08:47→20:34)
[2017-08-12] MEDS: Heparin 5,000 UNITS/ML VIAL SC SCH ×2 (08:48→20:35)
[2017-08-12] MEDS: predniSONE 20 MG TAB PO SCH (08:48)
[2017-08-12] MEDS ORDERED: Budesonide 0.5 MG/2 ML NEB NEB SCH (10:15)
[2017-08-12] MEDS ORDERED: SUMAtriptan Succinate 50 MG TAB PO PRN (10:29)
[2017-08-12] MEDS ORDERED: Fiorinal 325/50/40 mg Tablet PO PRN (10:30)
[2017-08-12] MEDS: Budesonide 0.5 MG/2 ML NEB NEB SCH (19:42)
[2017-08-12] MEDS: Nortriptyline HCl 25 MG CAP PO SCH (20:32)
[2017-08-12] MEDS: Pregabalin 75 MG CAP PO SCH (20:33)
[2017-08-12] MEDS: Tamsulosin HCl 0.4 MG CAP PO SCH (20:33)
[2017-08-12] MEDS: Fludrocortisone Acetate 0.1 MG TAB PO SCH (20:34)
[2017-08-12] MEDS: Simvastatin 40 MG TAB PO SCH (20:35)
[2017-08-12] MEDS: Brimonidine Tartrate 0.2% Ophth Soln 5 ml Bottle EA EYE SCH (20:35)
[2017-08-13] MEDS: Fentanyl 100 MCG/2 ML VIAL SLOW IVP PRN ×4 (03:17→21:57)
[2017-08-13] MEDS: HYDROcodone/Acetaminophen 7.5/325 mg Tablet PO PRN ×5 (03:18→23:02)
[2017-08-13 06:12] LABS: Anion Gap 12 mmol/L (10-20); BUN (Urea Nitrogen) 12 mg/dL (8.4-25.7); Calc. Creatinine Clearance 266 mL/min (70-130); Calcium 9.2 mg/dL (7.8-10.44); Carbon Dioxide 34 mmol/L (22-29); Chloride 98 mmol/L (98-107); Estimated GFR-MDRD Greater than 90; Glucose 95 mg/dL (70-105); Potassium 3.9 mmol/L (3.5-5.1); Sodium 140 mmol/L (136-145)
[2017-08-13 06:15] LABS: Band 8 % (5-11); Hemoglobin 10.2 g/dL (14.0-18.0); Lymphocytes 19 % (21-51); MDiff Complete? YES; Mean Corpuscular HGB CONC 31.1 g/dL (32.0-36.0); Mean Corpuscular Hemoglobin 29.4 pg (27.0-31.0); Mean Corpuscular Volume 94.4 fl (80.0-94.0); Mean Platelet Volume 7.9 fL (7.4-10.4); Metamyelocyte 1 % (0-0); Monocytes 4 % (0-10); Myelocyte 2 % (0-0); Neutrophil 65 % (42-75); Nucleated RBC 1 % (0); PLT Morphology Comment Appears Adequate; Platelet Count 327 thou/uL (130-400); RBC Distribution Width 15.9 % (11.5-14.5); Red Blood Cell (RBC) Count 3.49 mill/uL (4.70-6.10); White Blood Cell (WBC) Count 10.6 thou/uL (4.8-10.8)
[2017-08-13] MEDS: Budesonide 0.5 MG/2 ML NEB NEB SCH ×2 (06:23→20:48)
[2017-08-13] MEDS: Furosemide 40 MG TAB PO SCH (06:37)
[2017-08-13] MEDS: cefTRIAXone\\ROCEPHIN 1 GM, Syringe 0.4 ML in Sterile Water 9.6 ML SLOW IVP SCH (06:38)
--- NOTE | 2017-08-13 07:31 | EKG ---
Test Reason : Blood Pressure : / mmHG Vent. Rate : 125 BPM Atrial Rate : 125 BPM P-R Int : 146 ms QRS Dur : 098 ms QT Int : 308 ms P-R-T Axes : 025 -03 032 degrees QTc Int : 444 ms Sinus tachycardia Otherwise normal ECG When compared with ECG of 22-JAN-1997 12:58, Vent. rate has increased BY 54 BPM QRS duration has increased T wave amplitude has decreased in Anterior leads Confirmed by DR. Erika HARVEY ([id number]) on 08/13/2017 7:30:42 AM Referred By: Confirmed By:DR. Erika HARVEY
--- NOTE | 2017-08-13 07:59 | PRG ---
DATE OF SERVICE: 08/13/2017 SUBJECTIVE: The patient had a good night. He still feels like he is congested. His breathing is ok ay. His pain is under control. PHYSICAL EXAMINATION: GENERAL: He is awake, alert, and oriented. VITAL SIGNS: Blood pressure is 120/80, pulse 126. NECK: Supple. JVP cannot be assessed due to obese neck. Carotid had good upstroke with no thyromeg delmar. COR: Regular rate and rhythm. CHEST: Few wheezing. ABDOMEN: Soft, obese. EXTREMITIES: No change. ASSESSMENT: 1. Ischemic left lower extremity status post left knee disarticulation. 2. History of a right below-knee amputation. 3. Diabetes. 4. Hyperlipidemia. 5. Obesity. PLAN: The patient will need inpatient rehab. We will go ahead and order rehab. Otherwise, we will continue same home medications.
[2017-08-13] MEDS: metFORMIN 500 MG TAB PO SCH ×2 (08:59→17:45)
[2017-08-13] MEDS: Gabapentin 300 MG CAP PO SCH ×2 (08:59→20:22)
[2017-08-13] MEDS: Potassium Chloride 10 MEQ TAB PO SCH (08:59)
[2017-08-13] MEDS: Venlafaxine HCl XR 150 MG CAP PO SCH ×2 (08:59→20:24)
[2017-08-13] MEDS: Baclofen 10 MG TAB PO SCH ×3 (08:59→20:21)
[2017-08-13] MEDS: predniSONE 20 MG TAB PO SCH (08:59)
[2017-08-13] MEDS: Famotidine 20 MG TAB PO SCH ×2 (08:59→20:22)
[2017-08-13] MEDS: Heparin 5,000 UNITS/ML VIAL SC SCH ×2 (09:00→20:22)
[2017-08-13] MEDS: Docusate 100 MG CAP PO SCH ×2 (09:01→20:21)
[2017-08-13] MEDS: Polyethylene Glycol 3350 17 GM Packet PO SCH (09:01)
[2017-08-13] MEDS: Lanolin Ointment 7 GM TUBE TOP SCH (09:02)
[2017-08-13] MEDS: Fluticasone Propionate Nasal Spray 16 gm Bottle NASAL SCH ×2 (09:08→20:25)
[2017-08-13] MEDS: Brimonidine Tartrate 0.2% Ophth Soln 5 ml Bottle EA EYE SCH ×2 (09:08→20:25)
[2017-08-13] MEDS: cycloSPORINE 0.05% Ophthalmic Droperette EA EYE SCH (11:20)
[2017-08-13] MEDS: Bisoprolol Fumarate/HCTZ 5 mg/6.25 mg Tablet PO SCH (11:20)
[2017-08-13] MEDS: Fludrocortisone Acetate 0.1 MG TAB PO SCH (20:22)
[2017-08-13] MEDS: Pregabalin 75 MG CAP PO SCH (20:23)
[2017-08-13] MEDS: Nortriptyline HCl 25 MG CAP PO SCH (20:23)
[2017-08-13] MEDS: Tamsulosin HCl 0.4 MG CAP PO SCH (20:24)
[2017-08-13] MEDS: Simvastatin 40 MG TAB PO SCH (20:24)
[2017-08-14] MEDS: HYDROcodone/Acetaminophen 7.5/325 mg Tablet PO PRN ×3 (04:32→13:37)
[2017-08-14] MEDS: cefTRIAXone\\ROCEPHIN 1 GM, Syringe 0.4 ML in Sterile Water 9.6 ML SLOW IVP SCH (06:22)
[2017-08-14] MEDS: metFORMIN 500 MG TAB PO SCH ×2 (08:17→16:58)
[2017-08-14] MEDS: Gabapentin 300 MG CAP PO SCH (08:18)
[2017-08-14] MEDS: Docusate 100 MG CAP PO SCH (08:19)
[2017-08-14] MEDS: Potassium Chloride 10 MEQ TAB PO SCH (08:19)
[2017-08-14] MEDS: predniSONE 20 MG TAB PO SCH (08:19)
[2017-08-14] MEDS: Venlafaxine HCl XR 150 MG CAP PO SCH (08:19)
[2017-08-14] MEDS: Furosemide 40 MG TAB PO SCH (08:20)
[2017-08-14] MEDS: Heparin 5,000 UNITS/ML VIAL SC SCH (08:20)
[2017-08-14] MEDS: Polyethylene Glycol 3350 17 GM Packet PO SCH (08:20)
[2017-08-14] MEDS: Bisoprolol Fumarate/HCTZ 5 mg/6.25 mg Tablet PO SCH (08:20)
[2017-08-14] MEDS: Famotidine 20 MG TAB PO SCH (08:20)
[2017-08-14] MEDS: Baclofen 10 MG TAB PO SCH ×2 (08:20→15:06)
[2017-08-14] MEDS: Brimonidine Tartrate 0.2% Ophth Soln 5 ml Bottle EA EYE SCH (08:23)
[2017-08-14] MEDS: Fluticasone Propionate Nasal Spray 16 gm Bottle NASAL SCH (08:23)
[2017-08-14] MEDS: Lanolin Ointment 7 GM TUBE TOP SCH (08:29)
[2017-08-14] MEDS: cycloSPORINE 0.05% Ophthalmic Droperette EA EYE SCH (08:29)
[2017-08-14] MEDS: Fentanyl 100 MCG/2 ML VIAL SLOW IVP PRN ×2 (10:31→15:06)
[2017-08-14] MEDS: Budesonide 0.5 MG/2 ML NEB NEB SCH (10:57)
[2017-08-14 16:53] VITALS: BP 123/91; TEMP 98.4
[2017-08-14] MEDS ORDERED: Gabapentin 400 MG CAP PO SCH (21:00)
[2017-08-14] MEDS ORDERED: Tamsulosin HCl 0.4 MG CAP PO SCH (21:00)
--- NOTE | 2017-08-14 21:02 | DIS ---
ADMISSION DIAGNOSIS: Ischemic left lower extremity. The patient was admitted with several day history of ischemia of this left lower extremity with evide nce of anterior compartment muscle as well as severely ischemic foot that was anesthetic. He u nderwent a left knee disarticulation on the morning following admission and progressed nicely while i n the hospital. He had had a previous right fvdck-kyu-lokw amputation and did use an artificial limb at home for ambulation. He is to be discharged to the rehab unit to resume his multiple home medica tions. No prescriptions have been written. Follow up in my office in about 2-3 weeks for suture and staple removal.
== END 2017-08-14 17:35 | DRG 240 ==
LOC: ERS 12:25 → SURG A 15:00
PROVIDERS: ADMIT Thoracic Surgery (Cardiothoracic Vascular Surgery); ATTEND Thoracic Surgery (Cardiothoracic Vascular Surgery)
PROC: 0Y6G0ZZ Detachment at Left Knee Region, Open Approach (ICD-10-PCS; principal; 2017-08-10)
DX: E11.51 Type 2 diabetes mellitus with diabetic peripheral angiopathy without gangrene (principal); E27.1 Primary adrenocortical insufficiency; E11.42 Type 2 diabetes mellitus with diabetic polyneuropathy; M79.A22 Nontraumatic compartment syndrome of left lower extremity; Z68.41 Body mass index [BMI] 40.0-44.9, adult; M62.262 Nontraumatic ischemic infarction of muscle, left lower leg; E78.5 Hyperlipidemia, unspecified; I10 Essential (primary) hypertension; Z89.511 Acquired absence of right leg below knee; F32.9 Major depressive disorder, single episode, unspecified; F41.9 Anxiety disorder, unspecified; I25.10 Atherosclerotic heart disease of native coronary artery without angina pectoris; H40.9 Unspecified glaucoma; K21.9 Gastro-esophageal reflux disease without esophagitis; N40.0 Benign prostatic hyperplasia without lower urinary tract symptoms; G43.909 Migraine, unspecified, not intractable, without status migrainosus; Z87.891 Personal history of nicotine dependence; E66.9 Obesity, unspecified; J45.909 Unspecified asthma, uncomplicated; Z86.718 Personal history of other venous thrombosis and embolism; G47.33 Obstructive sleep apnea (adult) (pediatric)
CPT/HCPCS: 36415; 36416; 71020; 80048; 80053; 82553; 83605; 84484; 85025; 85379; 85610; 85730; 88305; 88307; 93005; 93010; 93923; 94640; 96374; 96375; A4216; G8978-GP-CM; G8979-GP-CK; G8987-GO-CK; G8988-GO-CI; J0696; J1170; J1200; J1644; J2001; J2405; J2704; J2930; J3010; J3490; J7506; J7620; J7626; S0028

== ENCOUNTER 2018-10-13 15:11 | Outpatient (CLI) | payer MEDICARE ==
--- NOTE | 2018-10-13 15:33 | RAD ---
PA AND LATERAL CHEST RADIOGRAPH: Date: 10-13-18 History: Rheumatoid arthritis. Comparison: 08-09-17 FINDINGS: Again noted is elevation of the right hemidiaphragm with persistent linear and parenchymal changes at the right lung base which is likely related to scarring given similar appearance to the prior exam. Cardiac silhouette remains mildly enlarged. Pulmonary vasculature is at the upper limits of normal. N o new area of consolidation or pleural fluid is seen. No other interval change. IMPRESSION: 1. Stable chest with scarring in the right lower lobe and right middle lobe with persistent elevation of the right hemidiaphragm. 2. No acute cardiopulmonary process. POS: [facility]
== END 2018-10-13 15:12 | disposition home or self-care (01) ==
LOC: BICRAD 15:11
PROVIDERS: ATTEND Internal Medicine Rheumatology
DX: M05.79 Rheumatoid arthritis with rheumatoid factor of multiple sites without organ or systems involvement (principal); J98.4 Other disorders of lung; J98.6 Disorders of diaphragm
CPT/HCPCS: 71046

== ENCOUNTER 2019-02-10 16:14 | Inpatient (IN) | payer MEDICARE ==
[~2019-02-10 16:14] MED LIST: Heparin 1,000 UNITS/ML VIAL ONE
[2019-02-10 17:23] LABS: Hemoglobin 12.3 g/dL (14.0-18.0); Mean Corpuscular HGB CONC 29.4 g/dL (32.0-36.0); Mean Corpuscular Hemoglobin 25.5 pg (27.0-31.0); Mean Corpuscular Volume 86.8 fL (78.0-98.0); Mean Platelet Volume 8.8 fL (7.4-10.4); Platelet Count 311 thou/uL (130-400); RBC Distribution Width 18.1 % (11.5-14.5); Red Blood Cell (RBC) Count 4.83 mill/uL (4.70-6.10); White Blood Cell (WBC) Count 19.3 thou/uL (4.8-10.8)
[2019-02-10 17:47] LABS: ALT (SGPT) 18 U/L (8-55); AST (SGOT) 12 U/L (5-34); Albumin 3.6 g/dL (3.5-5.0); Alkaline Phosphatase 75 U/L (40-150); Anion Gap 21 mmol/L (10-20); BUN (Urea Nitrogen) 15 mg/dL (8.4-25.7); Bilirubin, Total 0.2 mg/dL (0.2-1.2); Calc. Creatinine Clearance 0 mL/min (70-130); Calcium 9.2 mg/dL (7.8-10.44); Carbon Dioxide 18 mmol/L (22-29); Chloride 104 mmol/L (98-107); Estimated GFR-MDRD 78; Globulin 3.1 g/dL (2.4-3.5); Glucose 130 mg/dL (70-105); Potassium 4.7 mmol/L (3.5-5.1); Protein, Total 6.7 g/dL (6.0-8.3); Sodium 138 mmol/L (136-145)
[2019-02-10 17:48] LABS: Band 15 % (5-11); Lymphocytes 9 % (21-51); MDiff Complete? YES; Metamyelocyte 3 % (0-0); Monocytes 3 % (0-10); Myelocyte 2 % (0-0); Neutrophil 68 % (42-75); Polychromasia SLIGHT = 2-3 cells (100X) (0-2/hpf)
--- NOTE | 2019-02-10 17:51 | CT ---
CT Abdomen Pelvis WO Con: 02/10/2019 5:06 PM HISTORY: Softball-sized abscess in the groin COMPARISON: 08/06/2016 Procedure: Multiple contiguous axial images were obtained and a CT of the abdomen and pelvis without IV contrast . Coronal reformats were performed. FINDINGS: This examination is limited for the evaluation of solid organs and vascular structures due to the lac k of intravenous contrast. Lower Chest: within normal limits. Abdomen: Liver: within normal limits. Bile Ducts: Normal caliber. Gallbladder: No calcified gallstones. Normal caliber wall. Pancreas: within normal limits. Spleen: within normal limits. Adrenals: within normal limits. Kidneys: within normal limits. Pelvis: Reproductive Organs: No pelvic masses. Ureters: within normal limits. Bladder: within normal limits. Bowel: Normal caliber. Mesenteric Lymph Nodes: No enlarged mesenteric lymph nodes. Peritoneum: No ascites or free air, no fluid collection. Vessels: Normal caliber aorta Retroperitoneum: within normal limits. Abdominal Wall: Large stable 8.8 cm fat-containing umbilical hernia. No mass or fluid collection is s een in either inguinal region. Bones: Degenerative changes in the spine. Multiple remote bilateral rib fractures. IMPRESSION: 1. No evidence of acute intraabdominal\pelvic abnormality. 2. Umbilical hernia
[2019-02-10] MEDS ORDERED: Piperacillin/Tazobactam 3.375 GM VIAL ONE (18:00)
[2019-02-10 18:36] LABS: Bacteria/HPF 1+ HPF (None Seen); Bilirubin Negative (Negative); Blood, Urine Negative (Negative); Clarity Turbid (Clear); Glucose, Urine (Dipstick) 50 mg/dL (Negative); Leukocyte 75 Leu/uL (Negative); Nitrite Negative (Negative); Protein, Urine (Dipstick) 70 mg/dL (Neg-Trace); Squamous Epithelial 0-3 HPF (0-3); WBC/HPF 21-50 HPF (0-3); Yeast-Budding 1+ HPF (None Seen)
--- NOTE | 2019-02-10 19:01 | ULT ---
EXAM: Testicular/scrotal ultrasound HISTORY: Scrotal abscess which previously drained COMPARISON: CT abdomen/pelvis 02/10/2019 TECHNIQUE: Multiplanar grayscale and color Doppler images were obtained in a testicular/scrotal ultra sound. FINDINGS: Right testicle: Normal in echogenicity. No focal mass. Left testicle: Normal in echogenicity. No focal mass. Right epididymis. 6 mm epididymal cyst. Left epididymis. No epididymal cyst. No hydrocele is present. No varicocele is present. Edema is seen in the area of drainage along the posterior scrotum without focal drainable fluid colle ction. IMPRESSION: 1. Posterior scrotal edema without focal drainable fluid collection. 2. Right epididymal cyst
--- NOTE | 2019-02-10 19:45 | CT ---
EXAM: CT pelvis without contrast HISTORY: Pelvic and hip pain COMPARISON: None TECHNIQUE: Multiple contiguous axial images were obtained and a CT of the pelvis without contrast. Sa gittal and coronal reformats were performed. FINDINGS: No pelvic fractures are seen. No fracture of either proximal femur is seen. No significant degenerative changes are seen in the hips. Moderate degenerative changes are seen in the spine. The visualized intrapelvic structures are unremarkable. Soft tissue swelling is seen in the left post erior scrotum. No foci of air are seen in the soft tissues. The other soft tissues surrounding the pelvis are unremarkable. IMPRESSION: Soft tissue swelling of the scrotum without evidence of Jc's gangrene.
[2019-02-10] MEDS: Piperacillin/Tazobactam 3.375 GM in Sodium Chloride 0.9% 100 ML IVPB SCH (23:30)
[2019-02-10] MEDS ORDERED: Piperacillin/Tazobactam 3.375 GM in Sodium Chloride 0.9% 100 ML IVPB SCH (23:59)
--- NOTE | 2019-02-11 03:14 | HP ---
CHIEF COMPLAINT: Gluteal abscess with sepsis. HISTORY OF PRESENT ILLNESS: The patient is a 53-year-old diabetic male, double amputee who states that for the past 7-10 days, he has had pressure developing in his scrotal area, it has gotten worse over time. It began to spontaneously drain about 3 days ago, then he called my office on the day of admission, wishing to have it evaluated. He was allowed to come in right away and in the exam room, it was noted to be a ywqktarq-vd-hsotaxvm size abscess to the left side of his scrotum. It was fluctuant, purplish blue, bulbous and tender. This was obviously too large to be evacuated in the office due to the need to track and have it further evaluated, so he was sent to the emergency room for further evaluation. In [facility], baseline labs were obtained, [place] [id number] that included 15 bands. He also had a lactic acid of 6.5 at which time, a CT scan was obtained. It was evacuated in the emergency room. Blood cultures were taken and the patient began on antibiotics and Dr. Solis was contacted about the patient's circumstances and agreed to admit the patient for further care. Additional scanning was requested to assess for the possibility of channeling and the possible need for surgical intervention. Scans did not show that that would be necessary. PAST MEDICAL HISTORY: Significant for asthma, coronary artery disease, qlz-cqowzac-jqeqwkstk diabetes, glaucoma, history of DVT, hypertension, hyperlipidemia, Roanoke's disease, insomnia, peripheral neuropathy, dry eyes, migraine headaches, GERD, BPH, peripheral vascular disease resulting in bilateral above knee amputations. He has also had anxiety and depression. PAST SURGICAL HISTORY: Includes bilateral qiqef-gur-rxgr amputations. 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 He is . He has not smoked since 2013. He has never used illicit drugs. ALLERGIES: SULFA, IODINE, AND CELEBREX. MEDICATIONS: Listed in his list of current medicines. REVIEW OF SYSTEMS: At the time of admission; GENERAL: Denies fever, chills, malaise. HEENT: Denies drainage from ear, nose, or throat or sore throat. CHEST: Denies shortness of breath or coughing. CARDIOVASCULAR: Denies palpitations or chest pain. ABDOMEN: Denies any nausea, vomiting, or diarrhea. : Has pain in the perianal area as reason for coming to the hospital, has had spontaneous pustular drainage from that perianal mass. MUSCULOSKELETAL: He has had bilateral lower limb amputations. Upper extremities without clubbing, cyanosis, or edema. SKIN: With the aforementioned perianal softball size mass, fluctuant in size, bluish discoloration that has since been incised with purulent drainage removed. NEUROLOGIC: Significant for anxiety and depression. PHYSICAL EXAMINATION: At the time of admission, VITAL SIGNS: Blood pressure is 148/96, pulse is 118, respirations 20, O2 saturation 91% on room air on 2 L nasal cannula, temperature 98.8, he weighs 300 pounds. GENERAL: This is a morbidly obese male, alert, oriented, cooperative. HEENT: Normocephalic, atraumatic. Pupils are equal, round, and reactive to light. Extraocular muscles are intact. TMs, nares, and pharynx are clear. NECK: Supple. Trachea midline. CHEST: Clear to auscultation. HEART: Regular rate and rhythm, tachycardic. ABDOMEN: Obese, unable to appreciate organomegaly. : Normal external male with large softball-size bluish discolored mass that required incision and drainage. EXTREMITIES: Status post bilateral lower limb amputations due to peripheral vascular disease. Upper extremities without clubbing, cyanosis, or edema. Symmetrical tone and development noted. Normal range of motion present in the upper extremities. SKIN: With the aforementioned softball sized, bluish discolored, raised, tender, fluctuant perianal mass that on opening produced purulent malodorous discharge. NEUROLOGIC: Significant for neuropathy and phantom pain to the lower extremities. Pupils are equal, round, and reactive to light. Extraocular muscles are intact. Cranial nerves intact, unable to test gait due to being wheelchair bound or cerebellar function. Sensory exam is grossly intact. Mental status is at baseline. LABORATORY DATA: Lab work thus far shows WBCs 19.3, hemoglobin 12.3, hematocrit 41.9, platelets are 311 with 68 segs and 15 bands. Sodium is 138, potassium 4.7, chloride 104, CO2 is 18 with an anion gap of 21, BUN 15, creatinine 1 with glucose of 130. Lactic acid elevated at 6.5, calcium normal at 9.2. Liver functions normal. Urine shows positive leukocyte esterase with 21-50 WBCs. IMAGING: CT of abdomen and pelvis show umbilical hernia, but no acute intraabdominal or pelvic abnormality. The ultrasound of the testicular area did not show any further areas of abscess formation. Posterior scrotal edema is noted without any further drainable fluid collections, right epididymal cyst noted. ASSESSMENT ON ADMISSION: 1. Sepsis. 2. Perianal abscess. 3. Urinary tract infection. 4. Insulin-dependent diabetes. 5. Roanoke's. 6. Severe peripheral vascular disease, status post double amputee. PLAN: Plan will be to continue supportive measures including IV fluid hydration, IV antibiotics, wound care and serial re-evaluation. Job ID: [id number]
[2019-02-11 05:01] LABS: #Eosinphils 0.2 thou/uL (0.0-0.7); #Lymphocytes 1.2 thou/uL (1.20-3.40); #Monocytes 0.7 thou/uL (0.11-0.59); #Neutrophils 12.1 thou/uL (1.40-6.50); %Basophils 0.3 % (0.0-1.0); %Eosinophils 1.2 % (0.0-10.0); %Lymphocytes 8.2 % (21.0-51.0); %Monocytes 5.2 % (0.0-10.0); Mean Corpuscular HGB CONC 30.9 g/dL (32.0-36.0); Mean Corpuscular Hemoglobin 26.9 pg (27.0-31.0); Mean Corpuscular Volume 87.2 fL (78.0-98.0); Mean Platelet Volume 8.5 fL (7.4-10.4); Platelet Count 248 thou/uL (130-400); RBC Distribution Width 18.1 % (11.5-14.5); Red Blood Cell (RBC) Count 4.09 mill/uL (4.70-6.10); White Blood Cell (WBC) Count 14.3 thou/uL (4.8-10.8)
[2019-02-11 05:16] LABS: Hemoglobin A1c 6.5 % (4.0-6.0)
[2019-02-11 05:25] LABS: Anion Gap 13 mmol/L (10-20); BUN (Urea Nitrogen) 15 mg/dL (8.4-25.7); Calc. Creatinine Clearance 203 mL/min (70-130); Calcium 8.6 mg/dL (7.8-10.44); Carbon Dioxide 22 mmol/L (22-29); Cardiac Risk 3.5 (Less than 4.5); Chloride 109 mmol/L (98-107); Cholesterol 156 mg/dl (< 200 Desired); Estimated GFR-MDRD Greater than 90; Glucose 156 mg/dL (70-105); HDL Cholesterol 44 mg/dL (>60 Neg Risk); LDL Cholesterol, Calculated 81 mg/dL; Magnesium 1.2 mg/dL (1.6-2.6); Potassium 4.4 mmol/L (3.5-5.1); Sodium 140 mmol/L (136-145); Triglycerides 156 mg/dL (Less than 150)
[2019-02-11] MEDS: Piperacillin/Tazobactam 3.375 GM in Sodium Chloride 0.9% 100 ML IVPB SCH ×4 (05:43→23:20)
[2019-02-11] MEDS ORDERED: Vancomycin HCl 1 GM in Premix Bag 1 BAG IVPB SCH (07:00)
[2019-02-11] MEDS: Vancomycin HCl 1 GM in Premix Bag 1 BAG IVPB SCH ×2 (08:10→20:19)
[2019-02-11] MEDS ORDERED: predniSONE 5 MG TAB PO SCH (09:00)
[2019-02-11] MEDS: metFORMIN 500 MG TAB PO SCH ×2 (09:21→17:05)
[2019-02-11] MEDS: Leflunomide 10 mg Tablet PO SCH (09:22)
[2019-02-11] MEDS: Tamsulosin HCl 0.4 MG CAP PO SCH ×2 (09:22→20:20)
[2019-02-11] MEDS: Hydrochlorothiazide 25 MG TAB PO SCH ×2 (09:23→10:03)
[2019-02-11] MEDS: Baclofen 10 MG TAB PO SCH ×3 (09:23→20:19)
[2019-02-11] MEDS: Gabapentin 400 MG CAP PO SCH ×2 (09:23→20:20)
[2019-02-11] MEDS: Mexiletine HCl 150 MG CAP PO SCH ×2 (09:56→20:22)
[2019-02-11] MEDS: Bisoprolol Fumarate 5 MG TAB PO SCH ×2 (09:59→10:02)
[2019-02-11] MEDS: Acetaminophen/Codeine 30-300mg Tablet PO PRN ×2 (11:44→20:35)
[2019-02-11 12:17] VITALS: BMI 40.6
[2019-02-11] MEDS: Mometasone/Formoterol 120 PUFF INHALER INH SCH (18:27)
[2019-02-11] MEDS: Venlafaxine HCl XR 150 MG CAP PO SCH (20:19)
[2019-02-11] MEDS: predniSONE 20 MG TAB PO SCH (20:20)
[2019-02-11] MEDS: Ezetimibe 10 MG TAB PO SCH (20:20)
[2019-02-11] MEDS: Atorvastatin Calcium 20 MG TAB PO SCH (20:20)
[2019-02-11] MEDS: Latanoprost 0.005% Ophth Soln 2.5 ml Bottle EA EYE SCH (20:21)
[2019-02-11] MEDS: Brimonidine Tartrate 0.2% Ophth Soln 5 ml Bottle EA EYE SCH (20:22)
[2019-02-12] MEDS: Mometasone/Formoterol 120 PUFF INHALER INH SCH ×2 (00:52→18:12)
[2019-02-12] MEDS: Piperacillin/Tazobactam 3.375 GM in Sodium Chloride 0.9% 100 ML IVPB SCH ×4 (05:20→23:39)
[2019-02-12 06:39] LABS: #Eosinphils 0.1 thou/uL (0.0-0.7); #Lymphocytes 1.5 thou/uL (1.20-3.40); #Monocytes 0.6 thou/uL (0.11-0.59); #Neutrophils 9.2 thou/uL (1.40-6.50); %Basophils 0.3 % (0.0-1.0); %Eosinophils 0.8 % (0.0-10.0); %Lymphocytes 13.4 % (21.0-51.0); %Monocytes 5.5 % (0.0-10.0); Mean Corpuscular Hemoglobin 27.2 pg (27.0-31.0); Mean Corpuscular Volume 87.6 fL (78.0-98.0); Mean Platelet Volume 8.6 fL (7.4-10.4); Platelet Count 270 thou/uL (130-400); Red Blood Cell (RBC) Count 4.05 mill/uL (4.70-6.10); White Blood Cell (WBC) Count 11.5 thou/uL (4.8-10.8)
[2019-02-12] MEDS: Vancomycin HCl 1 GM in Premix Bag 1 BAG IVPB SCH ×2 (08:36→20:25)
[2019-02-12] MEDS: metFORMIN 500 MG TAB PO SCH ×2 (09:24→17:27)
[2019-02-12] MEDS: Leflunomide 10 mg Tablet PO SCH (09:24)
[2019-02-12] MEDS: Hydrochlorothiazide 25 MG TAB PO SCH (09:25)
[2019-02-12] MEDS: Venlafaxine HCl XR 150 MG CAP PO SCH ×2 (09:26→20:23)
[2019-02-12] MEDS: Bisoprolol Fumarate 5 MG TAB PO SCH (09:26)
[2019-02-12] MEDS: Tamsulosin HCl 0.4 MG CAP PO SCH ×2 (09:27→20:23)
[2019-02-12] MEDS: predniSONE 20 MG TAB PO SCH ×2 (09:27→20:23)
[2019-02-12] MEDS: Baclofen 10 MG TAB PO SCH ×3 (09:27→20:23)
[2019-02-12] MEDS: Gabapentin 400 MG CAP PO SCH ×2 (09:27→20:23)
[2019-02-12] MEDS: Mexiletine HCl 150 MG CAP PO SCH ×2 (09:28→20:23)
[2019-02-12] MEDS: Acetaminophen/Codeine 30-300mg Tablet PO PRN ×2 (11:41→23:42)
--- NOTE | 2019-02-12 12:33 | PDOC.PN ---
- Subjective Encounter Start Date: 02/12/19 Encounter Start Time: 12:30 Patient seen and examined, no new issues. - Objective Vital Signs & Weight: Vital Signs (12 hours) Temp Pulse Resp BP Pulse Ox 02/12/19 08:00 98.2 F 02/12/19 07:44 98.2 F 85 20 147/97 H 92 L 02/12/19 05:07 97.4 F L 70 20 149/93 H 93 L 02/12/19 00:40 98.2 F 85 20 94 L 02/12/19 00:33 98.0 F Weight Admit Weight 300 lb Weight 300 lb I&O: 02/11/19 02/12/19 02/13/19 06:59 06:59 06:59 Intake Total 1280 2910 240 Output Total 400 1800 Balance 880 1110 240 Result Diagrams: 02/12/19 04:40 02/11/19 04:25 Additional Labs: Accuchecks 02/12/19 02/12/19 02/11/19 11:32 05:05 19:50 POC Glucose 104 105 145 H 02/11/19 16:37 POC Glucose 124 H Phys Exam - Physical Examination Constitutional: NAD obese HEENT: PERRLA, moist MMs Neck: no nodes, no JVD Respiratory: no wheezing, no rales, no rhonchi Cardiovascular: RRR, no significant murmur, no rub Gastrointestinal: soft, positive bowel sounds Dx/Plan (1) Gluteal abscess Code(s): L02.31 - CUTANEOUS ABSCESS OF BUTTOCK Status: Acute (2) Dehydration Code(s): E86.0 - DEHYDRATION Status: Acute (3) Leukocytosis Code(s): D72.829 - ELEVATED WHITE BLOOD CELL COUNT, UNSPECIFIED Status: Acute (4) SIRS (systemic inflammatory response syndrome) Code(s): R65.10 - SIRS OF NON-INFECTIOUS ORIGIN W/O ACUTE ORGAN DYSFUNCTION Status: Acute - Plan * Cont wound care for now * possible DC plans in 24-48hrs * no changes in plan of care * case and plan d/w patient at length, he understood and agreed with this plan
[2019-02-12] MEDS: Ezetimibe 10 MG TAB PO SCH (20:23)
[2019-02-12] MEDS: Latanoprost 0.005% Ophth Soln 2.5 ml Bottle EA EYE SCH (20:24)
[2019-02-12] MEDS: traMADol HCl 50 MG TAB PO PRN (20:24)
[2019-02-12] MEDS: Atorvastatin Calcium 20 MG TAB PO SCH (20:24)
[2019-02-12] MEDS: Brimonidine Tartrate 0.2% Ophth Soln 5 ml Bottle EA EYE SCH (20:25)
[2019-02-13] MEDS: Piperacillin/Tazobactam 3.375 GM in Sodium Chloride 0.9% 100 ML IVPB SCH ×3 (05:39→17:29)
[2019-02-13] MEDS: Vancomycin HCl 1 GM in Premix Bag 1 BAG IVPB SCH ×3 (08:31→22:28)
[2019-02-13] MEDS: Gabapentin 400 MG CAP PO SCH ×2 (08:32→21:06)
[2019-02-13] MEDS: Hydrochlorothiazide 25 MG TAB PO SCH (08:32)
[2019-02-13] MEDS: metFORMIN 500 MG TAB PO SCH ×2 (08:32→17:28)
[2019-02-13] MEDS: Venlafaxine HCl XR 150 MG CAP PO SCH ×2 (08:32→21:08)
[2019-02-13] MEDS: Leflunomide 10 mg Tablet PO SCH (08:32)
[2019-02-13] MEDS: Baclofen 10 MG TAB PO SCH ×3 (08:33→21:06)
[2019-02-13] MEDS: Mexiletine HCl 150 MG CAP PO SCH ×2 (08:33→21:06)
[2019-02-13] MEDS: Tamsulosin HCl 0.4 MG CAP PO SCH ×2 (08:33→21:08)
[2019-02-13] MEDS: Bisoprolol Fumarate 5 MG TAB PO SCH (08:33)
[2019-02-13] MEDS: predniSONE 20 MG TAB PO SCH ×2 (08:33→21:07)
[2019-02-13] MEDS: Acetaminophen/Codeine 30-300mg Tablet PO PRN ×2 (12:17→22:31)
--- NOTE | 2019-02-13 12:53 | PDOC.PN ---
- Subjective Encounter Start Date: 02/13/19 Encounter Start Time: 12:51 Patient seen and examined, no new issues. - Objective Vital Signs & Weight: Vital Signs (12 hours) Temp Pulse Resp BP Pulse Ox 02/13/19 08:00 97.6 F 78 22 H 175/83 H 93 L 02/13/19 04:00 98.5 F 76 18 135/78 Weight Admit Weight 300 lb Weight 300 lb I&O: 02/12/19 02/13/19 02/14/19 06:59 06:59 06:59 Intake Total 2910 2960 Output Total 1800 700 Balance 1110 2260 Result Diagrams: 02/12/19 04:40 02/11/19 04:25 Additional Labs: Accuchecks 02/13/19 02/13/19 02/12/19 11:29 05:44 20:05 POC Glucose 98 101 110 02/12/19 16:39 POC Glucose 89 Phys Exam - Physical Examination Constitutional: NAD HEENT: PERRLA, moist MMs Neck: no nodes, no JVD, supple Respiratory: no wheezing, no rales, no rhonchi Cardiovascular: RRR, no significant murmur, no rub Gastrointestinal: soft, non-tender, no distention Dx/Plan (1) Gluteal abscess Code(s): L02.31 - CUTANEOUS ABSCESS OF BUTTOCK Status: Acute (2) Dehydration Code(s): E86.0 - DEHYDRATION Status: Acute (3) Leukocytosis Code(s): D72.829 - ELEVATED WHITE BLOOD CELL COUNT, UNSPECIFIED Status: Acute (4) SIRS (systemic inflammatory response syndrome) Code(s): R65.10 - SIRS OF NON-INFECTIOUS ORIGIN W/O ACUTE ORGAN DYSFUNCTION Status: Acute - Plan * Sx consult pending * cont wound care for now * labs in AM * vitals stable * case and plan d/w patient at length, he understood and agreed with this plan.
[2019-02-13] MEDS: Mometasone/Formoterol 120 PUFF INHALER INH SCH (19:43)
[2019-02-13] MEDS: Ezetimibe 10 MG TAB PO SCH (21:06)
[2019-02-13] MEDS: Atorvastatin Calcium 20 MG TAB PO SCH (21:06)
[2019-02-13] MEDS: Brimonidine Tartrate 0.2% Ophth Soln 5 ml Bottle EA EYE SCH (21:09)
[2019-02-13] MEDS: Latanoprost 0.005% Ophth Soln 2.5 ml Bottle EA EYE SCH (21:10)
[2019-02-13 22:19] LABS: Vancomycin, Trough 11.6 ug/mL
[2019-02-13] MEDS ORDERED: Vancomycin HCl 1 GM in Premix Bag 1 BAG IVPB SCH (22:30)
[2019-02-14] MEDS: Piperacillin/Tazobactam 3.375 GM in Sodium Chloride 0.9% 100 ML IVPB SCH ×5 (01:38→23:44)
[2019-02-14] MEDS: Vancomycin HCl 1 GM in Premix Bag 1 BAG IVPB SCH ×3 (04:57→20:10)
[2019-02-14] MEDS: Acetaminophen/Codeine 30-300mg Tablet PO PRN ×3 (07:15→20:12)
[2019-02-14] MEDS: Leflunomide 10 mg Tablet PO SCH (07:16)
[2019-02-14] MEDS: metFORMIN 500 MG TAB PO SCH ×2 (07:17→17:13)
[2019-02-14] MEDS: Bisoprolol Fumarate 5 MG TAB PO SCH (07:18)
[2019-02-14] MEDS: Hydrochlorothiazide 25 MG TAB PO SCH (07:18)
[2019-02-14] MEDS: Baclofen 10 MG TAB PO SCH ×3 (07:21→20:10)
[2019-02-14] MEDS: Gabapentin 400 MG CAP PO SCH ×2 (07:21→20:11)
[2019-02-14] MEDS: Mexiletine HCl 150 MG CAP PO SCH ×2 (07:21→20:10)
[2019-02-14] MEDS: Venlafaxine HCl XR 150 MG CAP PO SCH ×2 (07:21→20:11)
[2019-02-14] MEDS: Tamsulosin HCl 0.4 MG CAP PO SCH ×2 (07:21→20:11)
[2019-02-14] MEDS: predniSONE 20 MG TAB PO SCH ×2 (07:21→20:11)
--- NOTE | 2019-02-14 11:59 | PDOC.PN ---
- Subjective Encounter Start Date: 02/14/19 Encounter Start Time: 11:58 Patient seen and examined, no new issues - Objective Vital Signs & Weight: Vital Signs (12 hours) Temp Pulse Resp BP BP Pulse Ox 02/14/19 08:00 98 F 90 16 165/106 H 162/106 H 94 L 02/14/19 07:24 182/107 H 02/14/19 04:00 97.6 F 74 16 165/101 H 93 L 02/14/19 00:00 97.8 F 74 18 153/94 H 93 L Weight Admit Weight 300 lb Weight 300 lb I&O: 02/13/19 02/14/19 02/15/19 06:59 06:59 06:59 Intake Total 2960 600 Output Total 700 200 Balance 2260 400 Result Diagrams: 02/12/19 04:40 02/11/19 04:25 Additional Labs: Accuchecks 02/14/19 02/13/19 02/13/19 05:06 19:30 16:45 POC Glucose 105 80 98 Phys Exam - Physical Examination Constitutional: NAD obese HEENT: PERRLA, moist MMs Neck: no nodes, no JVD Respiratory: no wheezing, no rales, no rhonchi Cardiovascular: RRR, no significant murmur, no rub Gastrointestinal: soft, non-tender, no distention, positive bowel sounds Musculoskeletal: pulses present, edema present Dx/Plan (1) Gluteal abscess Code(s): L02.31 - CUTANEOUS ABSCESS OF BUTTOCK Status: Acute (2) Dehydration Code(s): E86.0 - DEHYDRATION Status: Acute (3) Leukocytosis Code(s): D72.829 - ELEVATED WHITE BLOOD CELL COUNT, UNSPECIFIED Status: Acute (4) SIRS (systemic inflammatory response syndrome) Code(s): R65.10 - SIRS OF NON-INFECTIOUS ORIGIN W/O ACUTE ORGAN DYSFUNCTION Status: Acute - Plan * cont wound care * gen sx evaluation pending * no changes in plan of care for now * plan d/w patient at [facility], family at bedside, all questions answered.
--- NOTE | 2019-02-14 13:39 | CON ---
DATE OF CONSULTATION: 02/13/2019 REASON FOR CONSULTATION: Scrotal abscess. HISTORY OF PRESENT ILLNESS: The patient is a morbidly obese 53-year-old white male. He is a bilateral amputee. He, from reviewing the medical record, had apparently presented to the hospital on February 10 and was seen in the emergency room. There was apparently a large scrotal abscess. His tells me that it drained spontaneously in the emergency room just after he got there. The patient was subsequently admitted to the hospital and placed on antibiotics. On the third day of his hospitalization, I am consulted in regard to this abscess. I am not really certain why. The patient denies pain. He denies any drainage. He has been afebrile with normal vital signs. His leukocytosis that he had at presentation with a white blood cell count of 19, dropped down to 14 on February 11, and white blood cell count was 11.5 on the . It was not checked today (on February 13). When I went to visit the patient, he had no complaints. With his nursing assistance, I examined the patient, focusing only on the scrotum. There is certainly some induration in the area where the abscess was, but I can find no area that would require any intervention. I suspect the underlying induration is residual inflammatory change from the abscess. ASSESSMENT: The patient with recent history of left posterior scrotal abscess that drained spontaneously 3 days ago. It does not appear to require any further intervention, and he should be safe for discharge on continued antibiotics. If there is something else that is desired in regard to this patient, please contact me. Job ID: [id number]
[2019-02-14] MEDS: Mometasone/Formoterol 120 PUFF INHALER INH SCH (19:10)
[2019-02-14] MEDS: Latanoprost 0.005% Ophth Soln 2.5 ml Bottle EA EYE SCH (20:09)
[2019-02-14] MEDS: Brimonidine Tartrate 0.2% Ophth Soln 5 ml Bottle EA EYE SCH (20:10)
[2019-02-14] MEDS: Ezetimibe 10 MG TAB PO SCH (20:11)
[2019-02-14] MEDS: Atorvastatin Calcium 20 MG TAB PO SCH (20:11)
[2019-02-15] MEDS: Piperacillin/Tazobactam 3.375 GM in Sodium Chloride 0.9% 100 ML IVPB SCH ×2 (04:15→12:48)
[2019-02-15 05:32] LABS: Vancomycin, Trough 19.7 ug/mL
[2019-02-15] MEDS: Vancomycin HCl 1 GM in Premix Bag 1 BAG IVPB SCH ×3 (05:42→14:55)
[2019-02-15] MEDS: Tamsulosin HCl 0.4 MG CAP PO SCH ×2 (08:15→20:03)
[2019-02-15] MEDS: Bisoprolol Fumarate 5 MG TAB PO SCH (08:15)
[2019-02-15] MEDS: Hydrochlorothiazide 25 MG TAB PO SCH (08:15)
[2019-02-15] MEDS: Mexiletine HCl 150 MG CAP PO SCH ×2 (08:15→20:04)
[2019-02-15] MEDS: Venlafaxine HCl XR 150 MG CAP PO SCH ×2 (08:15→20:03)
[2019-02-15] MEDS: metFORMIN 500 MG TAB PO SCH ×2 (08:15→17:58)
[2019-02-15] MEDS: Leflunomide 10 mg Tablet PO SCH (08:15)
[2019-02-15] MEDS: predniSONE 20 MG TAB PO SCH ×2 (08:16→20:04)
[2019-02-15] MEDS: Baclofen 10 MG TAB PO SCH ×4 (08:16→20:03)
[2019-02-15] MEDS: Gabapentin 400 MG CAP PO SCH ×2 (08:16→20:03)
[2019-02-15] MEDS ORDERED: cloNIDine 0.1 MG TAB PO PRN (15:24)
[2019-02-15] MEDS ORDERED: Bisoprolol Fumarate 5 MG TAB PO SCH (15:30)
[2019-02-15] MEDS ORDERED: Lisinopril 20 MG TAB PO SCH (15:30)
[2019-02-15] MEDS: Acetaminophen/Codeine 30-300mg Tablet PO PRN (17:58)
[2019-02-15] MEDS: Mometasone/Formoterol 120 PUFF INHALER INH SCH (19:05)
[2019-02-15] MEDS: Latanoprost 0.005% Ophth Soln 2.5 ml Bottle EA EYE SCH (20:03)
[2019-02-15] MEDS: Atorvastatin Calcium 20 MG TAB PO SCH (20:03)
[2019-02-15] MEDS: Brimonidine Tartrate 0.2% Ophth Soln 5 ml Bottle EA EYE SCH (20:03)
[2019-02-15] MEDS: Ezetimibe 10 MG TAB PO SCH (20:04)
[2019-02-15] MEDS: Cefdinir 300 MG CAP PO SCH (20:04)
[2019-02-16] MEDS: Hydrochlorothiazide 25 MG TAB PO SCH (09:23)
[2019-02-16] MEDS: Cefdinir 300 MG CAP PO SCH ×2 (09:24→20:21)
[2019-02-16] MEDS: Baclofen 10 MG TAB PO SCH ×3 (09:24→20:21)
[2019-02-16] MEDS: Bisoprolol Fumarate 5 MG TAB PO SCH (09:24)
[2019-02-16] MEDS: Gabapentin 400 MG CAP PO SCH ×2 (09:24→20:21)
[2019-02-16] MEDS: Venlafaxine HCl XR 150 MG CAP PO SCH ×2 (09:24→20:26)
[2019-02-16] MEDS: metFORMIN 500 MG TAB PO SCH ×2 (09:25→17:03)
[2019-02-16] MEDS: Lisinopril 20 MG TAB PO SCH (09:26)
[2019-02-16] MEDS: Leflunomide 10 mg Tablet PO SCH (09:26)
[2019-02-16] MEDS: predniSONE 20 MG TAB PO SCH ×2 (09:27→20:25)
[2019-02-16] MEDS: Mexiletine HCl 150 MG CAP PO SCH ×2 (09:27→20:29)
[2019-02-16] MEDS: Tamsulosin HCl 0.4 MG CAP PO SCH ×2 (09:28→20:29)
[2019-02-16] MEDS: Acetaminophen/Codeine 30-300mg Tablet PO PRN ×2 (09:32→15:13)
[2019-02-16] MEDS: Ezetimibe 10 MG TAB PO SCH (20:21)
[2019-02-16] MEDS: Brimonidine Tartrate 0.2% Ophth Soln 5 ml Bottle EA EYE SCH (20:22)
[2019-02-16] MEDS: Atorvastatin Calcium 20 MG TAB PO SCH (20:22)
[2019-02-16] MEDS: Latanoprost 0.005% Ophth Soln 2.5 ml Bottle EA EYE SCH (20:23)
[2019-02-16] MEDS: Mometasone/Formoterol 120 PUFF INHALER INH SCH (21:38)
[2019-02-17 06:53] LABS: #Eosinphils 0.1 thou/uL (0.0-0.7); #Lymphocytes 1.5 thou/uL (1.20-3.40); #Monocytes 0.7 thou/uL (0.11-0.59); #Neutrophils 12.5 thou/uL (1.40-6.50); %Basophils 0.3 % (0.0-1.0); %Eosinophils 0.5 % (0.0-10.0); %Lymphocytes 9.9 % (21.0-51.0); %Monocytes 4.9 % (0.0-10.0); %Neutrophils 84.4 % (42.0-75.0); Hemoglobin 12.5 g/dL (14.0-18.0); Mean Corpuscular HGB CONC 30.2 g/dL (32.0-36.0); Mean Corpuscular Hemoglobin 26.6 pg (27.0-31.0); Mean Corpuscular Volume 88.1 fL (78.0-98.0); Platelet Count 324 thou/uL (130-400); RBC Distribution Width 18.7 % (11.5-14.5); White Blood Cell (WBC) Count 14.8 thou/uL (4.8-10.8)
[2019-02-17 07:14] LABS: Anion Gap 13 mmol/L (10-20); BUN (Urea Nitrogen) 16 mg/dL (8.4-25.7); Calc. Creatinine Clearance 214 mL/min (70-130); Calcium 9.2 mg/dL (7.8-10.44); Carbon Dioxide 33 mmol/L (22-29); Chloride 98 mmol/L (98-107); Estimated GFR-MDRD Greater than 90; Glucose 116 mg/dL (70-105); Potassium 4.2 mmol/L (3.5-5.1); Sodium 140 mmol/L (136-145)
[2019-02-17] MEDS: Leflunomide 10 mg Tablet PO SCH (07:59)
[2019-02-17] MEDS: Gabapentin 400 MG CAP PO SCH ×2 (07:59→20:17)
[2019-02-17] MEDS: Mexiletine HCl 150 MG CAP PO SCH ×2 (08:00→20:17)
[2019-02-17] MEDS: Venlafaxine HCl XR 150 MG CAP PO SCH ×2 (08:00→20:19)
[2019-02-17] MEDS: Baclofen 10 MG TAB PO SCH ×3 (08:00→20:16)
[2019-02-17] MEDS: predniSONE 20 MG TAB PO SCH ×2 (08:00→20:18)
[2019-02-17] MEDS: Cefdinir 300 MG CAP PO SCH (08:00)
[2019-02-17] MEDS: Tamsulosin HCl 0.4 MG CAP PO SCH ×2 (08:00→20:19)
[2019-02-17] MEDS: Bisoprolol Fumarate 5 MG TAB PO SCH (08:00)
[2019-02-17] MEDS: Lisinopril 20 MG TAB PO SCH (08:00)
[2019-02-17] MEDS: metFORMIN 500 MG TAB PO SCH ×2 (08:00→17:14)
[2019-02-17] MEDS: Hydrochlorothiazide 25 MG TAB PO SCH (08:01)
[2019-02-17] MEDS: Vancomycin HCl 1 GM in Premix Bag 1 BAG IVPB SCH ×2 (10:50→20:21)
--- NOTE | 2019-02-17 11:33 | CT ---
CT PELVIS WITHOUT IV CONTRAST: HISTORY: Follow up possible scrotal abscess. FINDINGS: Again noted is a large, fat-containing lower anterior abdominal wall hernia. There is again noted to be some focal subcutaneous fat stranding and thickening in the left posterior scrotum, which appears to be somewhat improved from the prior study. Right and left testes are demonstrated. No evidence for abnormal gas within the soft tissue. No significant abnormal fluid within the scrotum. IMPRESSION: Persistent but minimally improving abnormal soft tissue swelling and fat stranding when compared to t 02/10/2019 study. No evidence for abnormal soft tissue gas collection. No evidence for a focal d rainable abscess. Large, fat-containing, inferior-anterior abdominal wall hernia. Lumbar spondylosi s with some levoscoliosis. Degenerative changes and arthrosis of both hip joints. No evidence for a bnormal pelvic fluid collection. POS: TPC
[2019-02-17] MEDS: Piperacillin/Tazobactam 3.375 GM in Sodium Chloride 0.9% 100 ML IVPB SCH ×2 (12:39→17:17)
[2019-02-17] MEDS: Acetaminophen/Codeine 30-300mg Tablet PO PRN (18:07)
[2019-02-17] MEDS: Mometasone/Formoterol 120 PUFF INHALER INH SCH (19:28)
[2019-02-17] MEDS: Atorvastatin Calcium 20 MG TAB PO SCH (20:16)
[2019-02-17] MEDS: Ezetimibe 10 MG TAB PO SCH (20:17)
[2019-02-17] MEDS: traMADol HCl 50 MG TAB PO PRN (20:19)
[2019-02-17] MEDS: Brimonidine Tartrate 0.2% Ophth Soln 5 ml Bottle EA EYE SCH (20:34)
[2019-02-17] MEDS: Latanoprost 0.005% Ophth Soln 2.5 ml Bottle EA EYE SCH (20:36)
[2019-02-18] MEDS: Piperacillin/Tazobactam 3.375 GM in Sodium Chloride 0.9% 100 ML IVPB SCH ×5 (00:10→23:47)
[2019-02-18] MEDS: Acetaminophen/Codeine 30-300mg Tablet PO PRN ×2 (05:08→18:11)
[2019-02-18 06:49] LABS: #Basophils 0.1 thou/uL (0.0-0.2); #Eosinphils 0.1 thou/uL (0.0-0.7); #Lymphocytes 1.5 thou/uL (1.20-3.40); #Monocytes 1.1 thou/uL (0.11-0.59); #Neutrophils 13.5 thou/uL (1.40-6.50); %Basophils 0.4 % (0.0-1.0); %Eosinophils 0.7 % (0.0-10.0); %Lymphocytes 9.2 % (21.0-51.0); %Monocytes 6.5 % (0.0-10.0); %Neutrophils 83.1 % (42.0-75.0); Hemoglobin 12.6 g/dL (14.0-18.0); Mean Corpuscular HGB CONC 30.3 g/dL (32.0-36.0); Mean Corpuscular Hemoglobin 26.7 pg (27.0-31.0); Mean Corpuscular Volume 88.1 fL (78.0-98.0); Mean Platelet Volume 7.8 fL (7.4-10.4); Platelet Count 298 thou/uL (130-400); RBC Distribution Width 18.5 % (11.5-14.5); Red Blood Cell (RBC) Count 4.71 mill/uL (4.70-6.10); White Blood Cell (WBC) Count 16.3 thou/uL (4.8-10.8)
[2019-02-18] MEDS: Venlafaxine HCl XR 150 MG CAP PO SCH ×2 (08:03→20:09)
[2019-02-18] MEDS: Vancomycin HCl 1 GM in Premix Bag 1 BAG IVPB SCH (08:03)
[2019-02-18] MEDS: metFORMIN 500 MG TAB PO SCH ×2 (08:03→17:06)
[2019-02-18] MEDS: Leflunomide 10 mg Tablet PO SCH (08:03)
[2019-02-18] MEDS: Hydrochlorothiazide 25 MG TAB PO SCH (08:03)
[2019-02-18] MEDS: Mexiletine HCl 150 MG CAP PO SCH ×2 (08:04→20:09)
[2019-02-18] MEDS: predniSONE 20 MG TAB PO SCH ×2 (08:04→20:09)
[2019-02-18] MEDS: Gabapentin 400 MG CAP PO SCH ×2 (08:04→20:10)
[2019-02-18] MEDS: Tamsulosin HCl 0.4 MG CAP PO SCH ×2 (08:04→20:09)
[2019-02-18] MEDS: Bisoprolol Fumarate 5 MG TAB PO SCH (08:04)
[2019-02-18] MEDS: Lisinopril 20 MG TAB PO SCH (08:04)
[2019-02-18] MEDS: Baclofen 10 MG TAB PO SCH ×3 (08:04→20:10)
--- NOTE | 2019-02-18 16:01 | SPC ---
Sonographic guided left upper extremity PICC HISTORY: Scrotal infection. Need for long-term antibiotics. FINDINGS: After explaining the procedure and answering all questions, the left upper extremity was pr epped and draped in usual sterile fashion. Sterile technique, buffered local anesthesia, sonographic guidance, and a 22-gauge needle were used to carefully access the left cephalic vein. With great difficulty, a 0.018 guidewire was carefully advanced through an area of narrowing at the c entral cephalic vein and into the superior vena cava. The 5 Danish PICC line was unable to be passed stenosis of the central cephalic vein. While leaving the cephalic wire and catheter in place, a second access with sonographic guidance was achieved at the basilic vein. A 0.018 guidewire was advanced to the level of the superior vena cava. Again, the 5 Danish PICC would not pass through an area of narrowing at the central basilic vei n. A 5 Danish Berenstein catheter, with a tapered tip, was able to be passed through the stenosis and in to the left subclavian vein where it was left for Central vascular access and secured externally. Due to patient allergy to iodine, contrast was unable to be given to further evaluate the areas of na rrowing. The cephalic line was removed and hemostasis obtained using direct pressure. Patient tolerated the procedure well and was returned in good condition. Fluoroscopy time 5.4 minutes. IMPRESSION: Vasospasm and stricture of the left cephalic and basilic veins, as detailed above.. A 5 F rench Berenstein catheter was left in the left basilic vein, tip at the subclavian vein, for vascular access. Patient will be premedicated for iodine allergy and brought back to the department for further visual ization of the basilic vein and an attempt to reposition and replacement of the line for an appropriate PICC catheter. If the left basilar access is not satisfactory, the right upper extremity could be used to attempt be tter central PICC access.
[2019-02-18] MEDS: Latanoprost 0.005% Ophth Soln 2.5 ml Bottle EA EYE SCH (20:08)
[2019-02-18] MEDS: Ezetimibe 10 MG TAB PO SCH (20:09)
[2019-02-18] MEDS: Atorvastatin Calcium 20 MG TAB PO SCH (20:10)
[2019-02-18] MEDS: traMADol HCl 50 MG TAB PO PRN (20:10)
[2019-02-18] MEDS: Brimonidine Tartrate 0.2% Ophth Soln 5 ml Bottle EA EYE SCH (20:12)
[2019-02-18 20:29] LABS: Vancomycin, Trough 28.9 ug/mL
[2019-02-18] MEDS: Mometasone/Formoterol 120 PUFF INHALER INH SCH (20:49)
[2019-02-18] MEDS: predniSONE 50 MG TAB PO SCH (21:36)
[2019-02-19] MEDS: predniSONE 50 MG TAB PO SCH ×2 (03:53→09:52)
[2019-02-19] MEDS: Piperacillin/Tazobactam 3.375 GM in Sodium Chloride 0.9% 100 ML IVPB SCH ×4 (05:01→23:51)
[2019-02-19] MEDS: Acetaminophen/Codeine 30-300mg Tablet PO PRN ×3 (05:12→16:56)
[2019-02-19] MEDS: Tamsulosin HCl 0.4 MG CAP PO SCH ×2 (09:51→20:25)
[2019-02-19] MEDS: Gabapentin 400 MG CAP PO SCH ×2 (09:51→20:25)
[2019-02-19] MEDS: Mexiletine HCl 150 MG CAP PO SCH ×2 (09:51→20:25)
[2019-02-19] MEDS: Venlafaxine HCl XR 150 MG CAP PO SCH ×2 (09:52→20:25)
[2019-02-19] MEDS: Bisoprolol Fumarate 5 MG TAB PO SCH (09:52)
[2019-02-19] MEDS: Hydrochlorothiazide 25 MG TAB PO SCH (09:52)
[2019-02-19] MEDS: Lisinopril 20 MG TAB PO SCH (09:52)
[2019-02-19] MEDS: predniSONE 20 MG TAB PO SCH ×2 (09:52→20:25)
[2019-02-19] MEDS: Leflunomide 10 mg Tablet PO SCH (09:52)
[2019-02-19] MEDS: Baclofen 10 MG TAB PO SCH ×3 (09:52→20:25)
[2019-02-19] MEDS: Vancomycin HCl 1.5 GM in Sodium Chloride 0.9% 250 ML 300 ML IVPB SCH (09:53)
[2019-02-19] MEDS ORDERED: diphenhydrAMINE 25 MG CAP PO SCH (10:00)
--- NOTE | 2019-02-19 15:26 | SPC ---
Fluoroscopic guided left upper extremity PICC placement/exchange HISTORY: Scrotal infection. Venospasm precluding optimal placement of previous PICC FINDINGS: After explaining the procedure and answering all questions, the external portion of the lef t upper arm basilic Central catheter was prepped and draped in usual sterile fashion. A 0.035 Glidewire was carefully placed through the catheter to hold position. The previous Berenstein catheter was removed, and a new 46 cm single-lumen PICC was placed, with the tip at the level of the right atrium. Minimal vasospasm was encountered. The catheter was secured externally and flushed. Patient tolerated the procedure well and was returned in unchanged condition. Fluoroscopy time 1.2 minutes. IMPRESSION: Successful exchange of the left upper extremity PICC, now with a power PICC in good radio graphic position and ready for use.
[2019-02-19] MEDS: Mometasone/Formoterol 120 PUFF INHALER INH SCH (18:56)
[2019-02-19] MEDS: Latanoprost 0.005% Ophth Soln 2.5 ml Bottle EA EYE SCH (20:24)
[2019-02-19] MEDS: Brimonidine Tartrate 0.2% Ophth Soln 5 ml Bottle EA EYE SCH (20:24)
[2019-02-19] MEDS: Ezetimibe 10 MG TAB PO SCH (20:25)
[2019-02-19] MEDS: traMADol HCl 50 MG TAB PO PRN (20:40)
[2019-02-19] MEDS ORDERED: Rosuvastatin 20 MG TAB PO SCH (21:00)
[2019-02-20 05:46] LABS: #Eosinphils 0.3 thou/uL (0.0-0.7); #Lymphocytes 1.3 thou/uL (1.20-3.40); #Monocytes 1.2 thou/uL (0.11-0.59); #Neutrophils 14.1 thou/uL (1.40-6.50); %Basophils 0.1 % (0.0-1.0); %Eosinophils 1.6 % (0.0-10.0); %Lymphocytes 7.7 % (21.0-51.0); %Monocytes 7.2 % (0.0-10.0); %Neutrophils 83.4 % (42.0-75.0); Hemoglobin 11.2 g/dL (14.0-18.0); Mean Corpuscular HGB CONC 29.5 g/dL (32.0-36.0); Mean Corpuscular Hemoglobin 26.3 pg (27.0-31.0); Mean Platelet Volume 8.1 fL (7.4-10.4); Platelet Count 280 thou/uL (130-400); RBC Distribution Width 18.6 % (11.5-14.5); Red Blood Cell (RBC) Count 4.27 mill/uL (4.70-6.10); White Blood Cell (WBC) Count 16.9 thou/uL (4.8-10.8)
[2019-02-20] MEDS: Piperacillin/Tazobactam 3.375 GM in Sodium Chloride 0.9% 100 ML IVPB SCH ×2 (05:58→11:48)
[2019-02-20] MEDS: Hydrochlorothiazide 25 MG TAB PO SCH (08:28)
[2019-02-20] MEDS: predniSONE 20 MG TAB PO SCH (08:28)
[2019-02-20] MEDS: Venlafaxine HCl XR 150 MG CAP PO SCH (08:28)
[2019-02-20] MEDS: Gabapentin 400 MG CAP PO SCH (08:28)
[2019-02-20] MEDS: Bisoprolol Fumarate 5 MG TAB PO SCH (08:28)
[2019-02-20] MEDS: Baclofen 10 MG TAB PO SCH ×2 (08:29→16:10)
[2019-02-20] MEDS: Leflunomide 10 mg Tablet PO SCH (08:29)
[2019-02-20] MEDS: Acetaminophen/Codeine 30-300mg Tablet PO PRN (08:29)
[2019-02-20] MEDS: Mexiletine HCl 150 MG CAP PO SCH (08:29)
[2019-02-20] MEDS: Tamsulosin HCl 0.4 MG CAP PO SCH (08:29)
[2019-02-20] MEDS: Lisinopril 20 MG TAB PO SCH (08:30)
[2019-02-20] MEDS ORDERED: Fludrocortisone Acetate 0.1 MG TAB PO SCH (09:00)
[2019-02-20] MEDS ORDERED: Aspirin 81 mg Enteric Coated Tablet PO SCH (09:00)
[2019-02-20] MEDS: Vancomycin HCl 1.5 GM in Sodium Chloride 0.9% 250 ML 300 ML IVPB SCH (09:19)
[2019-02-20] MEDS: traMADol HCl 50 MG TAB PO PRN (11:57)
[2019-02-20 16:34] VITALS: BP 162/102; TEMP 98.6
[2019-02-21] MEDS ORDERED: metFORMIN 500 MG TAB PO SCH (17:00)
== END 2019-02-20 15:42 | disposition home or self-care (01) | DRG 872 ==
LOC: ERS 16:14 → T4-A 21:28
PROVIDERS: ADMIT Specialist; ATTEND Specialist
PROC: 02HV33Z Insertion of Infusion Device into Superior Vena Cava, Percutaneous Approach (ICD-10-PCS; principal; 2019-02-18)
PROC: B548ZZA Ultrasonography of Superior Vena Cava, Guidance (ICD-10-PCS; 2019-02-18)
PROC: 02PY33Z Removal of Infusion Device from Great Vessel, Percutaneous Approach (ICD-10-PCS; 2019-02-19)
PROC: 02H633Z Insertion of Infusion Device into Right Atrium, Percutaneous Approach (ICD-10-PCS; 2019-02-19)
PROC: B214YZZ Fluoroscopy of Right Heart using Other Contrast (ICD-10-PCS; 2019-02-19)
DX: A41.9 Sepsis, unspecified organism (principal); L02.31 Cutaneous abscess of buttock; E27.1 Primary adrenocortical insufficiency; N39.0 Urinary tract infection, site not specified; Z68.41 Body mass index [BMI] 40.0-44.9, adult; J45.909 Unspecified asthma, uncomplicated; I25.10 Atherosclerotic heart disease of native coronary artery without angina pectoris; H40.9 Unspecified glaucoma; I10 Essential (primary) hypertension; E78.5 Hyperlipidemia, unspecified; G47.00 Insomnia, unspecified; E11.42 Type 2 diabetes mellitus with diabetic polyneuropathy; E11.51 Type 2 diabetes mellitus with diabetic peripheral angiopathy without gangrene; K21.9 Gastro-esophageal reflux disease without esophagitis; N40.0 Benign prostatic hyperplasia without lower urinary tract symptoms; E66.01 Morbid (severe) obesity due to excess calories; F41.9 Anxiety disorder, unspecified; F32.9 Major depressive disorder, single episode, unspecified; Z86.718 Personal history of other venous thrombosis and embolism; Z89.612 Acquired absence of left leg above knee; Z89.611 Acquired absence of right leg above knee; Z87.891 Personal history of nicotine dependence; Z88.2 Allergy status to sulfonamides; Z88.8 Allergy status to other drugs, medicaments and biological substances
CPT/HCPCS: 36415; 36416; 36569; 72192; 74176; 76870; 80048; 80053; 80061; 80202; 81003; 81015; 83036; 83605; 83735; 84443; 85025; 87040; 87077; 87086; 87149; 87324; 87449; 93005; 94664; 96361; 96365; 96366; 96367; C1751; C1769; C1887; J1644; J2543; J3370; J3490; J7050; J7512; Q0163

== ENCOUNTER 2019-07-23 18:49 | Emergency (ER) | payer MEDICARE ==
--- NOTE | 2019-07-23 19:50 | RAD ---
EXAM: XR Chest Pa Lat STANDARD PROVIDED CLINICAL HISTORY: Cough COMPARISON: 10/13/2018 FINDINGS: Evaluation is limited by patient body habitus. The cardiac silhouette remains enlarged. Persistent el evation of the right hemidiaphragm with adjacent subsegmental atelectasis. No focal consolidation, pleural fluid or pneumothorax apparent. IMPRESSION: Stable radiographic appearance of the chest.
[2019-07-23 20:28] LABS: #Basophils 0.1 thou/uL (0.0-0.2); #Eosinphils 0.5 thou/uL (0.0-0.7); #Lymphocytes 1.4 thou/uL (1.20-3.40); #Monocytes 0.8 thou/uL (0.11-0.59); #Neutrophils 10.6 thou/uL (1.40-6.50); %Basophils 0.4 % (0.0-1.0); %Lymphocytes 10.2 % (21.0-51.0); %Monocytes 5.6 % (0.0-10.0); %Neutrophils 79.7 % (42.0-75.0); Hemoglobin 12.2 g/dL (14.0-18.0); Mean Corpuscular HGB CONC 32.3 g/dL (32.0-36.0); Mean Corpuscular Hemoglobin 30.2 pg (27.0-31.0); Mean Corpuscular Volume 93.5 fL (78.0-98.0); Mean Platelet Volume 8.2 fL (7.4-10.4); Platelet Count 263 thou/uL (130-400); RBC Distribution Width 15.2 % (11.5-14.5); Red Blood Cell (RBC) Count 4.05 mill/uL (4.70-6.10); White Blood Cell (WBC) Count 13.3 thou/uL (4.8-10.8)
[2019-07-23 20:50] LABS: ALT (SGPT) 17 U/L (8-55); AST (SGOT) 13 U/L (5-34); Albumin 3.8 g/dL (3.5-5.0); Alkaline Phosphatase 61 U/L (40-110); Anion Gap 14 mmol/L (10-20); BUN (Urea Nitrogen) 22 mg/dL (8.4-25.7); Bilirubin, Total 0.2 mg/dL (0.2-1.2); Calc. Creatinine Clearance 0 mL/min (70-130); Calcium 8.7 mg/dL (7.8-10.44); Carbon Dioxide 32 mmol/L (22-29); Chloride 102 mmol/L (98-107); Estimated GFR-MDRD Greater than 90; Globulin 2.5 g/dL (2.4-3.5); Glucose 117 mg/dL (70-105); Potassium 3.5 mmol/L (3.5-5.1); Protein, Total 6.3 g/dL (6.0-8.3); Sodium 144 mmol/L (136-145)
[2019-07-23 21:19] LABS: CKMB 2.1 ng/mL (0-6.6)
== END 2019-07-23 22:25 | disposition home or self-care (01) ==
LOC: ERS 18:49
DX: J32.9 Chronic sinusitis, unspecified (principal); J22 Unspecified acute lower respiratory infection; E11.40 Type 2 diabetes mellitus with diabetic neuropathy, unspecified; E78.5 Hyperlipidemia, unspecified; E78.00 Pure hypercholesterolemia, unspecified; I10 Essential (primary) hypertension; M06.9 Rheumatoid arthritis, unspecified; J44.9 Chronic obstructive pulmonary disease, unspecified; Z86.718 Personal history of other venous thrombosis and embolism; Z87.891 Personal history of nicotine dependence
CPT/HCPCS: 36415; 71046; 80053; 82553; 83880; 84484; 85025; 85379; 87804; 93005; 94640; J7620

== ENCOUNTER 2020-10-19 14:16 | Outpatient (CLI) | payer MEDICARE ==
[2020-10-20 02:36] LABS: SARS-CoV-2 PCR by NAA Not Detected (NotDetected)
== END 2020-10-19 14:17 | disposition home or self-care (01) ==
LOC: LABBT 14:16
PROVIDERS: ATTEND Nurse Practitioner Acute Care
DX: M51.27 Other intervertebral disc displacement, lumbosacral region (principal); M50.220 Other cervical disc displacement, mid-cervical region, unspecified level; Z20.822 Contact with and (suspected) exposure to COVID-19
CPT/HCPCS: U0003; U0005; 87635

== ENCOUNTER 2020-10-24 11:04 | Day surgery (SDC) | payer MEDICARE ==
[2020-10-24] MEDS ORDERED: Midazolam HCl 2 mg/2 ml Vial ONE (12:33)
[2020-10-24] MEDS ORDERED: Fentanyl 100 MCG/2 ML VIAL ONE (12:33)
[2020-10-24] MEDS ORDERED: Lidocaine 1% PF 5 ML VIAL ONE (13:15)
[2020-10-24] MEDS ORDERED: PROPOFOL 200 MG/20 ML VIAL ONE (13:15)
[2020-10-24] MEDS ORDERED: ePHEDrine 50 MG/ML VIAL ONE (13:15)
[2020-10-24] MEDS ORDERED: Glycopyrrolate 0.2 MG/ML 5 ML SYRINGE ONE (13:15)
[2020-10-24] MEDS ORDERED: PHENYLEPHRINE-NS 100 MCG/ML 10 ML SYRINGE ONE (13:15)
[2020-10-24] MEDS ORDERED: Rocuronium Bromide 10 MG/ML (10ML VIAL) ONE (13:15)
[2020-10-24] MEDS ORDERED: Ondansetron PF 4 MG/2 ML Vial ONE (13:15)
== END 2020-10-24 15:50 | disposition home or self-care (01) ==
LOC: SDC/OP 11:04
PROVIDERS: ATTEND Nurse Practitioner Acute Care
DX: M48.02 Spinal stenosis, cervical region (principal); M50.31 Other cervical disc degeneration, high cervical region; M41.57 Other secondary scoliosis, lumbosacral region; M51.27 Other intervertebral disc displacement, lumbosacral region; M51.26 Other intervertebral disc displacement, lumbar region; M48.061 Spinal stenosis, lumbar region without neurogenic claudication; M41.9 Scoliosis, unspecified; E11.40 Type 2 diabetes mellitus with diabetic neuropathy, unspecified; I10 Essential (primary) hypertension; E78.5 Hyperlipidemia, unspecified; M19.90 Unspecified osteoarthritis, unspecified site; F41.9 Anxiety disorder, unspecified; F32.9 Major depressive disorder, single episode, unspecified; G47.30 Sleep apnea, unspecified; M81.0 Age-related osteoporosis without current pathological fracture; G43.109 Migraine with aura, not intractable, without status migrainosus; Z79.51 Long term (current) use of inhaled steroids; Z79.84 Long term (current) use of oral hypoglycemic drugs; Z79.899 Other long term (current) drug therapy; Z88.2 Allergy status to sulfonamides; Z88.6 Allergy status to analgesic agent; Z91.041 Radiographic dye allergy status
CPT/HCPCS: 72141; 72148; 93005; 93010; J2250; J2405; J2704; J3010; J3490

== ENCOUNTER 2021-03-20 15:11 | Outpatient (CLI) | payer MEDICARE | END 2021-03-20 15:12 | disposition home or self-care (01) | LOC: BICRAD 15:11 | PROVIDERS: ATTEND Specialist | DX: M25.161 Fistula, right knee (principal); M17.12 Unilateral primary osteoarthritis, left knee; Z89.511 Acquired absence of right leg below knee ==

== ENCOUNTER 2021-05-01 13:13 | Outpatient (CLI) | payer MEDICARE ==
[2021-05-01 16:40] LABS: Anion Gap 17 mmol/L (10-20); BUN (Urea Nitrogen) 25 mg/dL (8.4-25.7); Calc. Creatinine Clearance 0 mL/min (70-130); Calcium 9.3 mg/dL (7.8-10.44); Carbon Dioxide 34 mmol/L (22-29); Chloride 99 mmol/L (98-107); Glucose 96 mg/dL (70-105); Potassium 3.4 mmol/L (3.5-5.1); Sodium 147 mmol/L (136-145)
[2021-05-01 16:48] LABS: #Monocytes 0.7 10x3/uL (0.0-1.1); %Basophils 0.3 % (0.0-2.0); %Eosinophils 0.1 % (0.0-6.0); %Lymphocytes 5.9 % (18.0-47.0); %Monocytes 4.7 % (0.0-10.0); %Neutrophils 84.5 % (40.0-75.0); Hemoglobin 11.3 g/dL (13.5-17.5); Mean Corpuscular HGB CONC 28.6 g/dL (32.0-36.0); Mean Corpuscular Hemoglobin 26.7 pg (27.0-33.0); Mean Corpuscular Volume 93.4 fl (81.2-95.1); Mean Platelet Volume 11.4 fl (7.4-10.4); Platelet Count 216 10x3/uL (150-450); RBC Distribution Width 19.3 % (11.5-14.5); Red Blood Cell (RBC) Count 4.23 10x6/uL (4.32-5.72); White Blood Cell (WBC) Count 15.3 10x3/uL (3.5-10.5)
[2021-05-01 20:17] LABS: Hypochromia SLIGHT = 6-15 cells (100X) (0-5/hpf)
[2021-05-02 08:58] LABS: SARS-CoV-2 PCR by NAA Not Detected (NotDetected)
== END 2021-05-01 13:14 | disposition home or self-care (01) ==
LOC: LABBT 13:13
PROVIDERS: ATTEND Specialist
DX: Z01.818 Encounter for other preprocedural examination (principal); Z89.512 Acquired absence of left leg below knee; Z89.511 Acquired absence of right leg below knee; Z20.822 Contact with and (suspected) exposure to COVID-19
CPT/HCPCS: 80048; 85025; 93005; U0003; U0005; 93010

== ENCOUNTER 2021-05-04 05:51 | Day surgery (SDC) | payer MEDICARE ==
[2021-05-02 15:49] VITALS: BMI 49.6
[2021-05-04] MEDS ORDERED: Acetaminophen 500 MG TAB ONE (06:22)
[2021-05-04] MEDS ORDERED: Ketorolac Tromethamine 30 MG/ML VIAL ONE ×2 (06:22→07:45)
[2021-05-04] MEDS ORDERED: Fentanyl 100 MCG/2 ML VIAL ONE (06:49)
[2021-05-04] MEDS ORDERED: Ondansetron PF 4 MG/2 ML Vial ONE (07:45)
[2021-05-04] MEDS ORDERED: Rocuronium Bromide 10 MG/ML (10ML VIAL) ONE (07:45)
[2021-05-04] MEDS ORDERED: PROPOFOL 200 MG/20 ML VIAL ONE (07:45)
[2021-05-04] MEDS ORDERED: PHENYLEPHRINE-NS 100 MCG/ML 10 ML SYRINGE ONE (07:45)
[2021-05-04] MEDS ORDERED: ePHEDrine 50 MG/ML VIAL ONE (07:45)
[2021-05-04] MEDS ORDERED: Lidocaine 2% PF 5 ML VIAL ONE (07:45)
[2021-05-04] MEDS ORDERED: Albuterol Sulfate 1.25 MG/3 ML NEB ONE (09:52)
[2021-05-04] MEDS ORDERED: HYDROcodone/Acetaminophen 5/325 mg Tablet ONE (11:54)
== END 2021-05-04 14:40 | disposition home or self-care (01) ==
LOC: SDC 05:51
PROVIDERS: ATTEND Specialist
PROC: 0Y6H0Z1 Detachment at Right Lower Leg, High, Open Approach (ICD-10-PCS; principal; 2021-05-04)
DX: T87.89 Other complications of amputation stump (principal); L98.8 Other specified disorders of the skin and subcutaneous tissue; J44.9 Chronic obstructive pulmonary disease, unspecified; E78.5 Hyperlipidemia, unspecified; M19.90 Unspecified osteoarthritis, unspecified site; G47.30 Sleep apnea, unspecified; M81.0 Age-related osteoporosis without current pathological fracture; M06.9 Rheumatoid arthritis, unspecified; I10 Essential (primary) hypertension; K21.9 Gastro-esophageal reflux disease without esophagitis; N40.0 Benign prostatic hyperplasia without lower urinary tract symptoms; E11.42 Type 2 diabetes mellitus with diabetic polyneuropathy; E66.01 Morbid (severe) obesity due to excess calories; Z68.42 Body mass index [BMI] 45.0-49.9, adult; Z87.891 Personal history of nicotine dependence; Z79.82 Long term (current) use of aspirin; Z79.84 Long term (current) use of oral hypoglycemic drugs; Z79.899 Other long term (current) drug therapy; Z88.2 Allergy status to sulfonamides; Z88.6 Allergy status to analgesic agent; Z91.041 Radiographic dye allergy status; Z89.511 Acquired absence of right leg below knee; Z89.512 Acquired absence of left leg below knee; Z99.81 Dependence on supplemental oxygen
CPT/HCPCS: 71045; 71250; 87070; 87205; 88307; 88311; J0690; J1885; J2001; J2405; J2704; J3010; J3490

== ENCOUNTER 2021-06-23 07:18 | Inpatient (IN) | payer MEDICARE ==
[2021-06-23] MEDS ORDERED: Rocuronium Bromide 10 MG/ML (10ML VIAL) ONE (07:27)
[2021-06-23 07:46] LABS: #Basophils 0.1 thou/uL (0.0-0.2); #Eosinphils 0.2 thou/uL (0.0-0.7); #Lymphocytes 1.3 thou/uL (1.20-3.40); #Monocytes 0.9 thou/uL (0.11-0.59); #Neutrophils 10.1 thou/uL (1.40-6.50); %Basophils 0.7 % (0.0-1.0); %Eosinophils 1.8 % (0.0-10.0); %Lymphocytes 10.4 % (21.0-51.0); %Monocytes 6.9 % (0.0-10.0); %Neutrophils 80.2 % (42.0-75.0); Hemoglobin 12.2 g/dL (14.0-18.0); Mean Corpuscular HGB CONC 30.3 g/dL (32.0-36.0); Mean Corpuscular Hemoglobin 28.2 pg (27.0-31.0); Mean Corpuscular Volume 93.1 fL (78.0-98.0); Mean Platelet Volume 7.3 fL (7.4-10.4); Platelet Count 227 thou/uL (130-400); RBC Distribution Width 16.8 % (11.5-14.5); Red Blood Cell (RBC) Count 4.32 mill/uL (4.70-6.10); White Blood Cell (WBC) Count 12.7 thou/uL (4.8-10.8)
[2021-06-23] MEDS ORDERED: Norepinephrine 8 MG/0.9% NS 250 ML ONE (07:46)
[2021-06-23 07:53] LABS: Prothrombin Time 13.2 sec (12.0-14.7)
[2021-06-23 08:06] LABS: ALT (SGPT) 14 U/L (8-55); AST (SGOT) 17 U/L (5-34); Albumin 3.5 g/dL (3.5-5.0); Alkaline Phosphatase 54 U/L (40-110); Anion Gap 17 mmol/L (10-20); BUN (Urea Nitrogen) 16 mg/dL (8.4-25.7); Bilirubin, Total 0.3 mg/dL (0.2-1.2); Calc. Creatinine Clearance 0 mL/min (70-130); Calcium 8.8 mg/dL (7.8-10.44); Carbon Dioxide 32 mmol/L (22-29); Chloride 90 mmol/L (98-107); Globulin 2.7 g/dL (2.4-3.5); Glucose 135 mg/dL (70-105); Potassium 4.8 mmol/L (3.5-5.1); Protein, Total 6.2 g/dL (6.0-8.3); Sodium 134 mmol/L (136-145)
[2021-06-23] MEDS ORDERED: methylPREDNISolone Sod Succ/PF 125 MG/2 ML VIAL ONE (08:06)
[2021-06-23] MEDS ORDERED: Cefepime 2 GM VIAL ONE (08:06)
[2021-06-23] MEDS ORDERED: Sodium Chloride 0.9% 100 ML ONE (08:06)
[2021-06-23 08:15] LABS: Actual Bicarbonate (HCO3a) 28.8 mEq/L (22-28); Analyzer IN Cardio ER; Base Excess (BEa) 5.1 mEq/L (-2.0 to +3.0); CO2 Tension 38.7 mmHg (35.0-45.0); Calcium, Ionized (arterial) 1.06 mmol/L (1.12-1.30); Carboxyhemoglobin (COHb) 0.5 gm% (0.0-3.0); Hemoglobin (Hb) 11.6 g/dL (14.0-18.0); O2 Tension (PaO2), arterial 78.7 mmHg (80.0-100.0); Potassium - ABG Lab 4.31 mmol/L (3.70-5.30); pH, Arterial 7.49 (7.35-7.45)
[2021-06-23 08:16] LABS: ALV-art Gradient 300.725 mmHg (0-20); Puncture Site RRA
[2021-06-23] MEDS ORDERED: fentaNYL Citrate/PF 2,000 MCG in Sodium Chloride 0.9% 60 ML IV SCH (08:30)
[2021-06-23] MEDS ORDERED: Vancomycin 1 GM in Premix Bag 1 BAG IVPB SCH (08:30)
[2021-06-23 08:41] LABS: Bilirubin Negative (Negative); Blood, Urine 3+ (Negative); Clarity Turbid (Clear); Glucose, Urine (Dipstick) 30 mg/dL (Negative); Ketone, Urine 10 mg/dL (Negative); Leukocyte 250 Leu/uL (Negative); Nitrite Negative (Negative); Protein, Urine (Dipstick) 100 mg/dL (Neg-Trace); Specific Gravity, Urine 1.038 (1.002-1.036); Squamous Epithelial None Seen HPF (0-3); Urobilinogen Normal mg/dL (Less than 2); pH, Urine 5.5 (5.0-9.0)
[2021-06-23 08:53] LABS: SARS-CoV-2 NAA Rapid Test Not Detected (NotDetected)
[2021-06-23 08:54] LABS: Bacteria/HPF 1+ HPF (None Seen)
[2021-06-23] MEDS ORDERED: Acetaminophen 650 MG Suppository ONE (09:03)
[2021-06-23] MEDS ORDERED: Hydrocortisone Sod Succ/PF 100 mg/2 ml Vial ONE (09:03)
[2021-06-23] MEDS ORDERED: Vancomycin 1 GM/200 ML BAG ONE (09:03)
[2021-06-23] MEDS ORDERED: Acetaminophen 325 MG Suppository ONE (09:04)
[2021-06-23] MEDS ORDERED: Lactated Ringer's 1,000 ML IV SCH (11:45)
[2021-06-23] MEDS: Hydrocortisone Sod Succ/PF 100 mg/2 ml Vial IVP SCH ×5 (12:04→23:48)
[2021-06-23] MEDS ORDERED: Norepinephrine 8 MG/0.9% NS 250 ML IVPB SCH (12:45)
[2021-06-23] MEDS ORDERED: DAPTOmycin 500 MG VIAL SLOW IVP SCH (12:45)
[2021-06-23] MEDS ORDERED: Dextrose 5% in Water 1,000 ML IV PRN (12:49)
[2021-06-23] MEDS ORDERED: Insulin Regular 300 UNITS/3 ML VIAL SC PRN (12:49)
[2021-06-23] MEDS ORDERED: Dextrose 50% Abboject 50 ML SYRINGE SLOW IVP PRN (12:49)
[2021-06-23] MEDS ORDERED: FLU VACC QS2021-22(6MOS UP)/PF 60 MCG/0.5 ML SYRINGE IM ONE (16:00)
[2021-06-23] MEDS: Cefepime 2 GM in Sodium Chloride 0.9% 100 ML IVPB SCH (16:59)
[2021-06-23] MEDS: Acetaminophen 650 MG Suppository PR PRN (20:05)
[2021-06-23] MEDS ORDERED: Morphine 4 MG/ML VIAL SLOW IVP PRN (20:15)
[2021-06-23] MEDS ORDERED: Fentanyl BOLUS 250 ML IVPB PRN (20:15)
[2021-06-23] MEDS ORDERED: Propofol BOLUS 1,000 MG/100 ML VIAL IV PRN (20:15)
[2021-06-23] MEDS ORDERED: Propofol 1,000 MG/100 ML VIAL IV PRN (20:15)
[2021-06-23] MEDS ORDERED: Lorazepam 2 MG/ML VIAL SLOW IVP PRN (20:15)
[2021-06-23] MEDS ORDERED: Morphine 2 MG/ML VIAL SLOW IVP PRN (20:15)
[2021-06-23] MEDS ORDERED: DISCONTINUE PREVIOUS NARCOTIC PAIN MEDICATIONS AND BENZODIAZEPINES FS SCH (20:15)
[2021-06-23] MEDS: Enoxaparin Sodium 40 MG/0.4 ML SYRINGE SC SCH (20:19)
[2021-06-23] MEDS: Famotidine/PF 20 mg/2ml Vial SLOW IVP SCH (20:19)
[2021-06-23] MEDS: Ascorbic Acid 500 mg Chewable Tablet PO SCH (20:19)
[2021-06-23] MEDS: Sodium Chloride 0.9% 1,000 ML IV SCH (20:20)
[2021-06-23] MEDS ORDERED: PROPOFOL 0 ML ONE (20:40)
[2021-06-23] MEDS ORDERED: Propofol 1,000 MG/100 ML VIAL IV ONE (20:41)
[2021-06-23 21:15] LABS: Anion Gap 13 mmol/L (10-20); BUN (Urea Nitrogen) 15 mg/dL (8.4-25.7); Calc. Creatinine Clearance 175 mL/min (70-130); Calcium 7.8 mg/dL (7.8-10.44); Carbon Dioxide 30 mmol/L (22-29); Chloride 99 mmol/L (98-107); Glucose 113 mg/dL (70-105); Potassium 3.4 mmol/L (3.5-5.1); Sodium 139 mmol/L (136-145)
[2021-06-23] MEDS ORDERED: Fentanyl CADD 100 ML ONE (23:37)
[2021-06-24] MEDS: Cefepime 2 GM in Sodium Chloride 0.9% 100 ML IVPB SCH ×2 (03:06→15:30)
[2021-06-24] MEDS: Vancomycin 1.5 GRAM/300 ML BAG 1.5 GM in Premix Bag 1 BAG IVPB SCH ×2 (03:28→15:35)
[2021-06-24 04:34] LABS: #Eosinphils 0.3 thou/uL (0.0-0.7); #Lymphocytes 0.9 thou/uL (1.20-3.40); #Monocytes 0.8 thou/uL (0.11-0.59); #Neutrophils 9.9 thou/uL (1.40-6.50); %Basophils 0.3 % (0.0-1.0); %Eosinophils 2.2 % (0.0-10.0); %Lymphocytes 7.5 % (21.0-51.0); %Monocytes 6.6 % (0.0-10.0); %Neutrophils 83.5 % (42.0-75.0); Hemoglobin 9.6 g/dL (14.0-18.0); Mean Corpuscular HGB CONC 31.6 g/dL (32.0-36.0); Mean Corpuscular Hemoglobin 28.9 pg (27.0-31.0); Mean Corpuscular Volume 91.5 fL (78.0-98.0); Mean Platelet Volume 7.8 fL (7.4-10.4); Platelet Count 153 thou/uL (130-400); RBC Distribution Width 16.7 % (11.5-14.5); Red Blood Cell (RBC) Count 3.32 mill/uL (4.70-6.10); White Blood Cell (WBC) Count 11.8 thou/uL (4.8-10.8)
[2021-06-24 04:58] LABS: ALT (SGPT) 12 U/L (8-55); AST (SGOT) 13 U/L (5-34); Albumin 2.8 g/dL (3.5-5.0); Alkaline Phosphatase 38 U/L (40-110); Anion Gap 13 mmol/L (10-20); BUN (Urea Nitrogen) 16 mg/dL (8.4-25.7); Bilirubin, Total 0.3 mg/dL (0.2-1.2); Calc. Creatinine Clearance 178 mL/min (70-130); Carbon Dioxide 29 mmol/L (22-29); Chloride 100 mmol/L (98-107); Globulin 2.1 g/dL (2.4-3.5); Glucose 104 mg/dL (70-105); Potassium 3.3 mmol/L (3.5-5.1); Protein, Total 4.9 g/dL (6.0-8.3); Sodium 139 mmol/L (136-145)
[2021-06-24] MEDS: Zinc Sulfate 220 MG CAP PO SCH (08:37)
[2021-06-24] MEDS: Sodium Chloride 0.9% 1,000 ML IV SCH (08:37)
[2021-06-24] MEDS: Cyanocobalamin (Vitamin B-12) 1,000 MCG TAB PO SCH (08:37)
[2021-06-24] MEDS: Ascorbic Acid 500 mg Chewable Tablet PO SCH ×2 (08:37→20:43)
[2021-06-24] MEDS: Cholecalciferol (Vitamin D3) 400 UNITS TAB PO SCH (08:37)
[2021-06-24] MEDS: Hydrocortisone Sod Succ/PF 100 mg/2 ml Vial IVP SCH (08:38)
[2021-06-24] MEDS: Famotidine/PF 20 mg/2ml Vial SLOW IVP SCH ×2 (08:38→20:43)
[2021-06-24] MEDS: Enoxaparin Sodium 40 MG/0.4 ML SYRINGE SC SCH ×2 (08:38→20:43)
[2021-06-24] MEDS ORDERED: Potassium Bicarbonate/Cit Ac 20 MEQ TAB PER TUBE SCH (08:45)
[2021-06-24] MEDS ORDERED: Electrolyte Replacement Protocol 1 EACH FS SCH (09:15)
[2021-06-24] MEDS: Acetaminophen 650 MG Suppository PR PRN (09:15)
[2021-06-24] MEDS ORDERED: Insulin Regular 300 UNITS/3 ML VIAL SC PRN (12:15)
[2021-06-24] MEDS: Lorazepam 2 MG/ML VIAL SLOW IVP PRN ×2 (16:41→20:44)
[2021-06-25] MEDS: Cefepime 2 GM in Sodium Chloride 0.9% 100 ML IVPB SCH ×2 (04:12→15:26)
[2021-06-25] MEDS: Vancomycin 1.5 GRAM/300 ML BAG 1.5 GM in Premix Bag 1 BAG IVPB SCH (04:12)
[2021-06-25] MEDS: Lorazepam 2 MG/ML VIAL SLOW IVP PRN ×4 (04:12→19:23)
[2021-06-25 05:03] LABS: #Basophils 0.1 thou/uL (0.0-0.2); #Eosinphils 0.4 thou/uL (0.0-0.7); #Lymphocytes 2.6 thou/uL (1.20-3.40); #Monocytes 0.8 thou/uL (0.11-0.59); #Neutrophils 8.7 thou/uL (1.40-6.50); %Basophils 0.7 % (0.0-1.0); %Eosinophils 3.3 % (0.0-10.0); %Lymphocytes 20.7 % (21.0-51.0); %Monocytes 6.6 % (0.0-10.0); %Neutrophils 68.7 % (42.0-75.0); Hemoglobin 10.3 g/dL (14.0-18.0); Mean Corpuscular HGB CONC 31.6 g/dL (32.0-36.0); Mean Corpuscular Volume 91.9 fL (78.0-98.0); Mean Platelet Volume 7.5 fL (7.4-10.4); Platelet Count 144 thou/uL (130-400); Red Blood Cell (RBC) Count 3.56 mill/uL (4.70-6.10); White Blood Cell (WBC) Count 12.6 thou/uL (4.8-10.8)
[2021-06-25 05:23] LABS: ALT (SGPT) 15 U/L (8-55); AST (SGOT) 20 U/L (5-34); Albumin 3.1 g/dL (3.5-5.0); Alkaline Phosphatase 44 U/L (40-110); Anion Gap 14 mmol/L (10-20); BUN (Urea Nitrogen) 10 mg/dL (8.4-25.7); Bilirubin, Total 0.3 mg/dL (0.2-1.2); Calc. Creatinine Clearance 222 mL/min (70-130); Calcium 8.8 mg/dL (7.8-10.44); Carbon Dioxide 28 mmol/L (22-29); Chloride 101 mmol/L (98-107); Globulin 2.4 g/dL (2.4-3.5); Glucose 73 mg/dL (70-105); Potassium 3.5 mmol/L (3.5-5.1); Protein, Total 5.5 g/dL (6.0-8.3); Sodium 139 mmol/L (136-145)
[2021-06-25] MEDS ORDERED: Potassium Bicarbonate/Cit Ac 20 MEQ TAB PER TUBE SCH (07:00)
[2021-06-25] MEDS: Enoxaparin Sodium 40 MG/0.4 ML SYRINGE SC SCH ×2 (08:54→20:48)
[2021-06-25] MEDS: Famotidine/PF 20 mg/2ml Vial SLOW IVP SCH ×2 (08:54→20:50)
[2021-06-25] MEDS: Ascorbic Acid 500 mg Chewable Tablet PO SCH ×2 (10:35→21:38)
[2021-06-25] MEDS: Cholecalciferol (Vitamin D3) 400 UNITS TAB PO SCH (10:35)
[2021-06-25] MEDS: Zinc Sulfate 220 MG CAP PO SCH (10:36)
[2021-06-25] MEDS: Cyanocobalamin (Vitamin B-12) 1,000 MCG TAB PO SCH (10:36)
[2021-06-25 10:45] LABS: Hemoglobin A1c 5.6 % (4.0-6.0)
[2021-06-25 16:05] LABS: Vancomycin, Trough 27.4 ug/mL
[2021-06-25] MEDS ORDERED: Vancomycin 1.5 GRAM/300 ML BAG 1.5 GM in Premix Bag 1 BAG IVPB SCH (16:15)
[2021-06-25] MEDS ORDERED: Lactated Ringer's 500 ML IV SCH (18:30)
[2021-06-25] MEDS: Lactated Ringer's 1,000 ML IV SCH (19:23)
[2021-06-25] MEDS ORDERED: Morphine 4 MG/ML VIAL SLOW IVP PRN ×2 (20:36→20:37)
[2021-06-25] MEDS: Latanoprost 0.005% Ophth Soln 2.5 ml Bottle EA EYE SCH (20:50)
[2021-06-25] MEDS: Hydrocortisone Sod Succ/PF 100 mg/2 ml Vial IVP SCH (21:43)
[2021-06-25] MEDS: cycloSPORINE 0.05% Ophthalmic Droperette EA EYE SCH (21:47)
[2021-06-25] MEDS: Morphine 4 MG/ML VIAL SLOW IVP PRN (22:15)
[2021-06-26] MEDS: Morphine 4 MG/ML VIAL SLOW IVP PRN ×3 (00:01→12:38)
[2021-06-26] MEDS: Cefepime 2 GM in Sodium Chloride 0.9% 100 ML IVPB SCH ×2 (04:56→15:28)
[2021-06-26] MEDS: Vancomycin 1 GM in Premix Bag 1 BAG IVPB SCH ×2 (04:56→15:28)
[2021-06-26 04:59] LABS: #Eosinphils 0.3 thou/uL (0.0-0.7); #Lymphocytes 1.1 thou/uL (1.20-3.40); #Monocytes 0.6 thou/uL (0.11-0.59); #Neutrophils 12.4 thou/uL (1.40-6.50); %Basophils 0.2 % (0.0-1.0); %Lymphocytes 7.5 % (21.0-51.0); %Monocytes 4.3 % (0.0-10.0); %Neutrophils 86.1 % (42.0-75.0); Hemoglobin 10.3 g/dL (14.0-18.0); Mean Corpuscular HGB CONC 30.9 g/dL (32.0-36.0); Mean Corpuscular Hemoglobin 28.5 pg (27.0-31.0); Mean Corpuscular Volume 92.1 fL (78.0-98.0); Mean Platelet Volume 7.7 fL (7.4-10.4); Platelet Count 141 thou/uL (130-400); RBC Distribution Width 17.4 % (11.5-14.5); White Blood Cell (WBC) Count 14.4 thou/uL (4.8-10.8)
[2021-06-26 05:28] LABS: ALT (SGPT) 12 U/L (8-55); AST (SGOT) 14 U/L (5-34); Albumin 2.9 g/dL (3.5-5.0); Alkaline Phosphatase 52 U/L (40-110); Anion Gap 14 mmol/L (10-20); BUN (Urea Nitrogen) 10 mg/dL (8.4-25.7); Bilirubin, Total 0.3 mg/dL (0.2-1.2); Calc. Creatinine Clearance 206 mL/min (70-130); Calcium 8.6 mg/dL (7.8-10.44); Carbon Dioxide 28 mmol/L (22-29); Chloride 102 mmol/L (98-107); Globulin 2.4 g/dL (2.4-3.5); Glucose 139 mg/dL (70-105); Potassium 3.7 mmol/L (3.5-5.1); Protein, Total 5.3 g/dL (6.0-8.3); Sodium 140 mmol/L (136-145)
[2021-06-26] MEDS: Enoxaparin Sodium 40 MG/0.4 ML SYRINGE SC SCH ×2 (08:47→20:10)
[2021-06-26] MEDS: Famotidine/PF 20 mg/2ml Vial SLOW IVP SCH ×3 (08:47→20:42)
[2021-06-26] MEDS: Lactated Ringer's 1,000 ML IV SCH ×2 (08:47→19:56)
[2021-06-26] MEDS ORDERED: Phytonadione 5 MG TAB PO SCH (09:00)
[2021-06-26] MEDS: Hydrocortisone Sod Succ/PF 100 mg/2 ml Vial IVP SCH ×2 (09:41→20:32)
[2021-06-26] MEDS: Cyanocobalamin (Vitamin B-12) 1,000 MCG TAB PO SCH (10:20)
[2021-06-26] MEDS: Ascorbic Acid 500 mg Chewable Tablet PO SCH ×2 (10:20→20:10)
[2021-06-26] MEDS: Cholecalciferol (Vitamin D3) 400 UNITS TAB PO SCH (10:20)
[2021-06-26] MEDS: cycloSPORINE 0.05% Ophthalmic Droperette EA EYE SCH ×2 (10:22→20:13)
[2021-06-26] MEDS: Zinc Sulfate 220 MG CAP PO SCH (10:23)
[2021-06-26] MEDS: Gabapentin 400 MG CAP PO SCH (20:08)
[2021-06-26] MEDS: Pregabalin 75 MG CAP PO SCH (20:09)
[2021-06-26] MEDS: Latanoprost 0.005% Ophth Soln 2.5 ml Bottle EA EYE SCH (20:12)
[2021-06-27] MEDS: Cefepime 2 GM in Sodium Chloride 0.9% 100 ML IVPB SCH (04:14)
[2021-06-27 04:32] LABS: ALT (SGPT) 10 U/L (8-55); AST (SGOT) 11 U/L (5-34); Albumin 2.6 g/dL (3.5-5.0); Alkaline Phosphatase 44 U/L (40-110); Anion Gap 12 mmol/L (10-20); BUN (Urea Nitrogen) 8 mg/dL (8.4-25.7); Bilirubin, Total 0.2 mg/dL (0.2-1.2); Calc. Creatinine Clearance 252 mL/min (70-130); Calcium 8.3 mg/dL (7.8-10.44); Carbon Dioxide 30 mmol/L (22-29); Chloride 101 mmol/L (98-107); Globulin 2.1 g/dL (2.4-3.5); Glucose 105 mg/dL (70-105); Protein, Total 4.7 g/dL (6.0-8.3); Sodium 140 mmol/L (136-145)
[2021-06-27] MEDS: Vancomycin 1 GM in Premix Bag 1 BAG IVPB SCH (04:45)
[2021-06-27 05:28] LABS: #Eosinphils 0.1 thou/uL (0.0-0.7); #Lymphocytes 0.6 thou/uL (1.20-3.40); #Monocytes 0.4 thou/uL (0.11-0.59); #Neutrophils 10.1 thou/uL (1.40-6.50); %Basophils 0.2 % (0.0-1.0); %Eosinophils 1.1 % (0.0-10.0); %Lymphocytes 5.2 % (21.0-51.0); %Monocytes 3.8 % (0.0-10.0); %Neutrophils 89.8 % (42.0-75.0); Anisocytosis SLIGHT = 6-15 cells (100X) (0-5/hpf); Hypochromia SLIGHT = 6-15 cells (100X) (0-5/hpf); MDiff Complete? YES; Mean Corpuscular HGB CONC 31.4 g/dL (32.0-36.0); Mean Corpuscular Hemoglobin 29.2 pg (27.0-31.0); Mean Corpuscular Volume 93.2 fL (78.0-98.0); Mean Platelet Volume 8.1 fL (7.4-10.4); Platelet Count 119 thou/uL (130-400); Platelet Morphology Comment Appears Decreased; Red Blood Cell (RBC) Count 3.08 mill/uL (4.70-6.10); White Blood Cell (WBC) Count 11.2 thou/uL (4.8-10.8)
[2021-06-27] MEDS ORDERED: Potassium Chloride 20 MEQ TAB PO SCH (07:00)
[2021-06-27] MEDS ORDERED: Potassium Chloride 40 MEQ in Sodium Chloride 0.9% 250 ML 250 ML IVPB SCH (08:00)
[2021-06-27] MEDS: Enoxaparin Sodium 40 MG/0.4 ML SYRINGE SC SCH (08:14)
[2021-06-27] MEDS: Pregabalin 75 MG CAP PO SCH (08:15)
[2021-06-27] MEDS: Famotidine/PF 20 mg/2ml Vial SLOW IVP SCH (08:15)
[2021-06-27] MEDS: Ascorbic Acid 500 mg Chewable Tablet PO SCH (08:15)
[2021-06-27] MEDS: Gabapentin 400 MG CAP PO SCH (08:16)
[2021-06-27] MEDS: Cholecalciferol (Vitamin D3) 400 UNITS TAB PO SCH (08:17)
[2021-06-27] MEDS: Zinc Sulfate 220 MG CAP PO SCH (08:17)
[2021-06-27] MEDS: Cyanocobalamin (Vitamin B-12) 1,000 MCG TAB PO SCH (08:54)
[2021-06-27] MEDS: Hydrocortisone Sod Succ/PF 100 mg/2 ml Vial IVP SCH (09:55)
[2021-06-27] MEDS: cycloSPORINE 0.05% Ophthalmic Droperette EA EYE SCH (09:56)
[2021-06-27] MEDS: Lactated Ringer's 1,000 ML IV SCH (09:56)
[2021-06-27] MEDS: Morphine 4 MG/ML VIAL SLOW IVP PRN ×3 (11:30→20:48)
[2021-06-27] MEDS: Lorazepam 2 MG/ML VIAL SLOW IVP PRN (11:31)
[2021-06-27 13:38] VITALS: BMI 35.9
[2021-06-27] MEDS ORDERED: Enoxaparin Sodium 40 MG/0.4 ML SYRINGE SC SCH (21:00)
[2021-06-28] MEDS: Morphine 4 MG/ML VIAL SLOW IVP PRN ×5 (03:23→06:39)
[2021-06-28] MEDS ORDERED: HYDROmorphone 0.5 MG/0.5 ML SYRINGE SLOW IVP PRN (07:56)
[2021-06-28] MEDS: Scopolamine 1.5 mg/72 hour Patch TOP SCH (08:59)
[2021-06-28] MEDS: HYDROmorphone 2 MG/ML VIAL SLOW IVP PRN ×3 (09:34→20:30)
[2021-06-28] MEDS ORDERED: HYDROmorphone 2 MG/ML VIAL ONE (15:20)
[2021-06-28] MEDS: Lorazepam 2 MG/ML VIAL SLOW IVP PRN (17:49)
[2021-06-29] MEDS: HYDROmorphone 2 MG/ML VIAL SLOW IVP PRN ×2 (01:30→05:19)
[2021-06-29] MEDS ORDERED: Acetaminophen ER (8hr) 650 MG TAB PO PRN (07:18)
[2021-06-29] MEDS ORDERED: Acetaminophen 325 MG TAB PO PRN (08:21)
[2021-06-29] MEDS ORDERED: HYDROmorphone 0.5 MG/0.5 ML SYRINGE SLOW IVP PRN (08:28)
[2021-06-29] MEDS ORDERED: HYDROmorphone 0.5 MG/0.5 ML SYRINGE SLOW IVP SCH (11:15)
[2021-06-29] MEDS: HYDROmorphone 2 MG/ML VIAL SLOW IVP SCH ×4 (11:45→22:30)
[2021-06-29] MEDS: HYDROmorphone 0.5 MG/0.5 ML SYRINGE SLOW IVP PRN (15:20)
[2021-06-29] MEDS: Lorazepam 2 MG/ML VIAL SLOW IVP PRN ×2 (18:30→23:20)
[2021-06-30] MEDS: HYDROmorphone 2 MG/ML VIAL SLOW IVP PRN ×6 (00:25→17:19)
[2021-06-30] MEDS: HYDROmorphone 2 MG/ML VIAL SLOW IVP SCH ×9 (00:29→23:55)
[2021-06-30] MEDS: HYDROmorphone 0.5 MG/0.5 ML SYRINGE SLOW IVP PRN (00:30)
[2021-06-30 07:47] VITALS: BP 76/50
[2021-06-30] MEDS: Lorazepam 2 MG/ML VIAL SLOW IVP PRN ×4 (09:26→22:46)
[2021-06-30 19:43] LABS: SARS-CoV-2 PCR by NAA Not Detected (NotDetected)
[2021-06-30 21:52] VITALS: TEMP 103.5
[2021-07-01] MEDS: HYDROmorphone 2 MG/ML VIAL SLOW IVP PRN ×2 (01:35→06:01)
[2021-07-01] MEDS: HYDROmorphone 2 MG/ML VIAL SLOW IVP SCH ×2 (03:45→07:25)
[2021-07-01] MEDS: Lorazepam 2 MG/ML VIAL SLOW IVP PRN (07:00)
[2021-07-01] MEDS: Scopolamine 1.5 mg/72 hour Patch TOP SCH (08:43)
== END 2021-07-01 08:15 | disposition expired | DRG 871 ==
LOC: ERS 07:18 → CCU 09:01 → T4-B 06-27 14:19
PROVIDERS: ADMIT Specialist; ATTEND Specialist
PROC: 3E033XZ Introduction of Vasopressor into Peripheral Vein, Percutaneous Approach (ICD-10-PCS; 2021-06-23)
PROC: 02HV33Z Insertion of Infusion Device into Superior Vena Cava, Percutaneous Approach (ICD-10-PCS; 2021-06-23)
PROC: 0BH17EZ Insertion of Endotracheal Airway into Trachea, Via Natural or Artificial Opening (ICD-10-PCS; 2021-06-23)
PROC: 5A1935Z Respiratory Ventilation, Less than 24 Consecutive Hours (ICD-10-PCS; 2021-06-23)
PROC: 0DH67UZ Insertion of Feeding Device into Stomach, Via Natural or Artificial Opening (ICD-10-PCS; 2021-06-23)
PROC: 5A09557 Assistance with Respiratory Ventilation, Greater than 96 Consecutive Hours, Continuous Positive Airway Pressure (ICD-10-PCS; principal; 2021-06-24)
DX: A41.02 Sepsis due to Methicillin resistant Staphylococcus aureus (principal); L89.303 Pressure ulcer of unspecified buttock, stage 3; J96.01 Acute respiratory failure with hypoxia; J96.02 Acute respiratory failure with hypercapnia; J18.9 Pneumonia, unspecified organism; I63.9 Cerebral infarction, unspecified; F19.20 Other psychoactive substance dependence, uncomplicated; F33.2 Major depressive disorder, recurrent severe without psychotic features; L97.819 Non-pressure chronic ulcer of other part of right lower leg with unspecified severity; E27.1 Primary adrenocortical insufficiency; J44.0 Chronic obstructive pulmonary disease with (acute) lower respiratory infection; N39.0 Urinary tract infection, site not specified; E87.1 Hypo-osmolality and hyponatremia; Z20.822 Contact with and (suspected) exposure to COVID-19; Z66 Do not resuscitate; Z51.5 Encounter for palliative care; R65.20 Severe sepsis without septic shock; G47.33 Obstructive sleep apnea (adult) (pediatric); E66.9 Obesity, unspecified; I10 Essential (primary) hypertension; E11.40 Type 2 diabetes mellitus with diabetic neuropathy, unspecified; E11.622 Type 2 diabetes mellitus with other skin ulcer; H40.9 Unspecified glaucoma; E78.00 Pure hypercholesterolemia, unspecified; M06.9 Rheumatoid arthritis, unspecified; K21.9 Gastro-esophageal reflux disease without esophagitis; F41.9 Anxiety disorder, unspecified; R13.10 Dysphagia, unspecified; G89.29 Other chronic pain; Z88.6 Allergy status to analgesic agent; Z88.2 Allergy status to sulfonamides; Z91.041 Radiographic dye allergy status; Z68.35 Body mass index [BMI] 35.0-35.9, adult; Z87.891 Personal history of nicotine dependence; Z99.81 Dependence on supplemental oxygen; Z86.718 Personal history of other venous thrombosis and embolism; Z74.01 Bed confinement status; Z78.1 Physical restraint status; Z89.512 Acquired absence of left leg below knee; Z89.511 Acquired absence of right leg below knee; Z79.899 Other long term (current) drug therapy
CPT/HCPCS: 31500; 36415; 36416; 36600; 71045; 71250; 80053; 80202; 81003; 81015; 82306; 82805; 83036; 83605; 84145; 85025; 85610; 85652; 85730; 86140; 87040; 87086; 93005; 93970; 94002; 94003; 94150; 94640; 94660; 94760; 96365; 96366; 96368; 96375; 99292; J0692; J1170; J1650; J1720; J2060; J2270; J2704; J2930; J3010; J3370; J3480; J3490; J7030; J7050; J7120; J7620; S0028; U0002; U0003; U0005